=== PATIENT | male | born 1965 | race Caucasian/White ===

== ENCOUNTER 2017-12-27 09:48 | Inpatient (IN) | payer MEDICARE, MEDICAID ==
[2017-12-27 10:32] LABS: CHLORIDE,CL 105 mmol/L (98-107); SODIUM,NA 141 mmol/L (136-145)
[2017-12-27] MEDS: cefTRIAXone 1 GM in Sodium Chloride 0.9% 100 ML IV SCH (12:39)
[2017-12-27] MEDS ORDERED: Acetaminophen 325 MG Tab PO ONE (13:06)
--- NOTE | 2017-12-27 13:13 | EDM.PDOC ---
ED HPI GENERAL MEDICAL PROBLEM - General Chief Complaint: General Stated Complaint: post seizure activity Time Seen by Provider: 12/27/17 09:54 Source of Information: Reports: EMS, Other ([facility] ) History Limitations: Reports: Other (cognitive and communication deficits) - History of Present Illness INITIAL COMMENTS - FREE TEXT/NARRATIVE: Patient sent to us by [place] via EMS for possible brief seizure. They report "seconds" of shaking/seizure-like activity and then felt that the patient went unresponsive. EMS reports patient awake and per NH staff was at his usual baseline by the time they arrived. No history of seizures in past per retirement staff. NH did not note any other recent changes over the last few days. No fevers/ behavior change/URIs/cough/GI changes/falls. They did note that his O2 sats were in 80s this morning and BP fell from prevous level (see transfer sheets for notes) and started O2 via [facility]. No other history of new symptoms/changes was given to us. Patient has Down Syndrome. - Related Data Allergies Allergy/AdvReac Type Severity Reaction Status Date / Time No Known Allergies Allergy Verified 12/27/17 10:02 Home Meds: Home Meds Acetaminophen [Tylenol] 2 tab PO BID 12/27/17 [History] Acetaminophen [Tylenol] 2 tab PO Q4HR PRN 12/27/17 [History] Bisacodyl [Biscolax] 10 mg RC Q3D PRN 12/27/17 [History] Bisacodyl [Ducodyl] 5 mg PO DAILY PRN 12/27/17 [History] Doxycycline Hyclate 100 mg PO BID 12/27/17 [History] Levothyroxine Sodium [Synthroid] 100 mg PO ACBREAKFAST 12/27/17 [History] Multivits,Ca,Minerals/Iron/FA [Thera-M Cap[place]] 1 tab PO DAILY 12/27/17 [History] Tamsulosin HCl [Flomax] 1 cap PO DAILY 12/27/17 [History] Past Medical History HEENT History: Reports: Other (See Below) Other HEENT History: pt unable to answer questions d/t congitive deficit Neurological History: Reports: Other (See Below) Other Neuro History: down syndrome, unspecified dementia, spastic hemiplegia affecting left nondominate side Psychiatric History: Reports: Dementia, Other (See Below) Other Psychiatric History: down syndrome, unable to answer questions Endocrine/Metabolic History: Reports: Hypothyroidism Social & Family History - Tobacco Use Smoking Status *Q: Unknown Ever Smoked ED ROS GENERAL - Review of Systems Review Of Systems: Unable To Obtain ED EXAM, GENERAL - Physical Exam Exam: See Below Exam Limited By: Altered Mental Status General Appearance: No Apparent Distress, Obese, Other (awake) Eye Exam: Bilateral Eye: EOMI, PERRL Ears: Normal External Exam, Normal Canal Nose: No: Nasal Deformity, Nasal Swelling, Nasal Drainage Throat/Mouth: Normal Lips, Normal Voice, No Airway Compromise Head: Atraumatic, Normocephalic Neck: Normal Inspection, Supple, Non-Tender, Full Range of Motion Respiratory/Chest: No Accessory Muscle Use, Chest Non-Tender, Decreased Breath Sounds, Other (breathing effort appears slightly increased at times). No: Crackles, Rales, Rhonchi, Wheezing, Retractions Cardiovascular: Normal Peripheral Pulses, Regular Rate, Rhythm, No Edema, No Murmur Peripheral Pulses: 2+: Radial (L), Radial (R), Dorsalis Pedis (L), Dorsalis Pedis (R) GI/Abdominal: Normal Bowel Sounds, Soft, Non-Tender, No Distention (Male) Exam: Deferred Rectal (Males) Exam: Deferred Back Exam: No: Muscle Spasm, Paraspinal Tenderness, Vertebral Tenderness Extremities: Non-Tender, Normal Capillary Refill. No: Increased Warmth, Mottled , Pallor, Redness Neurological: Other (opens eyes intermittently, usually resting. Not attempting much in the way of moving around. Hx of spastic plegia affecting left side. Unable to perform strength tests as patient not able to follow directions. ) Skin Exam: Warm, Dry, Intact, Normal Color Course - Vital Signs Last Recorded V/S: Last Vital Signs Temp 36.5 C 12/27/17 09:50 Pulse 81 12/27/17 12:00 Resp 18 12/27/17 12:00 BP 103/81 12/27/17 12:00 Pulse Ox 96 12/27/17 12:00 - Orders/Labs/Meds Orders: Active Orders 24 hr Category Date Time Status Chest 1V Frontal [CR] Stat Exams 12/27/17 10:40 Taken CULTURE BLOOD [BC] Stat Lab 12/27/17 11:35 Received CULTURE BLOOD [BC] Stat Lab 12/27/17 12:30 Received UA W/MICROSCOPIC [URIN] Stat Lab 12/27/17 11:18 Ordered Azithromycin [Zithromax] 500 mg Med 12/27/17 11:45 Active Sodium Chloride 0.9% [Normal Saline] 250 ml IV Q24H LORazepam [Ativan] Med 12/27/17 13:05 Active 1 mg IVPUSH Q6H PRN cefTRIAXone [Rocephin] 1 gm Med 12/27/17 11:45 Active Sodium Chloride 0.9% [Normal Saline] 100 ml IV Q24H Blood Culture x2 Reflex Set [OM.PC] Stat Oth 12/27/17 11:18 Ordered Medication Orders Azithromycin 500 mg/ Sodium (Chloride) 250 mls @ 250 mls/hr IV Q24H GAVI Last Admin: 12/27/17 13:25 Dose: 250 mls/hr Ceftriaxone Sodium 1 gm/ (Sodium Chloride) 100 mls @ 200 mls/hr IV Q24H GAVI Last Admin: 12/27/17 12:39 Dose: 200 mls/hr Lorazepam (Ativan) 1 mg IVPUSH Q6H PRN PRN Reason: Agitation Last Admin: 12/27/17 13:16 Dose: 1 mg Labs: Laboratory Tests 12/27/17 12/27/17 12/27/17 Range/Units 10:05 10:05 10:45 WBC 30.5 H (4.0-10.2) K/uL RBC 5.73 H (4.33-5.41) M/uL Hgb 16.4 (13.1-16.8) g/dL Hct 47.2 (39.0-49.0) % MCV 82.4 L (84.0-98.0) fL MCH 28.6 (28.2-33.3) pg MCHC 34.7 (31.7-36.0) g/dL RDW 16.4 H (11.2-14.1) % Plt Count 273 (150-350) K/uL Add Manual Diff Yes Neutrophils % (Manual) 82 Band Neutrophils % 10 Lymphocytes % (Manual) 7 Monocytes % (Manual) 1 Absolute Neutrophils 28.0600 Lymphocytes # (Manual) 2.1350 Monocytes # (Manual) 0.3050 Sodium 141 (136-145) mmol/L Potassium 3.9 (3.5-5.1) mmol/L Chloride 105 (98-107) mmol/L Carbon Dioxide 24.1 (21.0-32.0) mmol/L BUN 17 (7-18) mg/dL Creatinine 0.94 (0.51-1.17) mg/dL Est Cr Clr Drug Dosing TNP Estimated GFR (MDRD) > 60 mL/min Glucose 139 H (74-106) mg/dL Lactic Acid 3.1 H (0.4-2.0) mmol/L Calcium 9.3 (8.5-10.1) mg/dL Total Bilirubin 0.3 (0.2-1.0) mg/dL AST 34 (15-37) U/L ALT 46 (12-78) U/L Alkaline Phosphatase 79 (46-116) IU/L NT-Pro-B Natriuret Pep (0-125) pg/mL Total Protein 6.8 (6.4-8.2) g/dL Albumin 3.1 L (3.4-5.0) g/dL Specimen Type Urine Color Urine Appearance Urine pH (5.0-9.0) Ur Specific [place] (1.005-1.030) Urine Protein (NEGATIVE) mg/dL Urine Glucose (UA) (NEGATIVE) mg/dL Urine Ketones (NEGATIVE) mg/dL Urine Occult Blood (NEGATIVE) Urine Nitrite (NEGATIVE) Urine Bilirubin (NEGATIVE) Urine Urobilinogen (0.2-1.0) E.U./dL Ur Leukocyte Esterase (NEGATIVE) Urine RBC /HPF Urine WBC /HPF Ur Epithelial Cells /LPF Urine Bacteria (NONE TO FEW) /HPF Urine Mucus (NEGATIVE) /LPF 12/27/17 12/27/17 Range/Units 10:45 11:18 WBC (4.0-10.2) K/uL RBC (4.33-5.41) M/uL Hgb (13.1-16.8) g/dL Hct (39.0-49.0) % MCV (84.0-98.0) fL MCH (28.2-33.3) pg MCHC (31.7-36.0) g/dL RDW (11.2-14.1) % Plt Count (150-350) K/uL Add Manual Diff Neutrophils % (Manual) Band Neutrophils % Lymphocytes % (Manual) Monocytes % (Manual) Absolute Neutrophils Lymphocytes # (Manual) Monocytes # (Manual) Sodium (136-145) mmol/L Potassium (3.5-5.1) mmol/L Chloride (98-107) mmol/L Carbon Dioxide (21.0-32.0) mmol/L BUN (7-18) mg/dL Creatinine (0.51-1.17) mg/dL Est Cr Clr Drug Dosing Estimated GFR (MDRD) mL/min Glucose (74-106) mg/dL Lactic Acid (0.4-2.0) mmol/L Calcium (8.5-10.1) mg/dL Total Bilirubin (0.2-1.0) mg/dL AST (15-37) U/L ALT (12-78) U/L Alkaline Phosphatase (46-116) IU/L NT-Pro-B Natriuret Pep 26 (0-125) pg/mL Total Protein (6.4-8.2) g/dL Albumin (3.4-5.0) g/dL Specimen Type Ur[place]ath Urine Color Yellow Urine Appearance Clear Urine pH 5.5 (5.0-9.0) Ur Specific [place] 1.020 (1.005-1.030) Urine Protein Negative (NEGATIVE) mg/dL Urine Glucose (UA) Negative (NEGATIVE) mg/dL Urine Ketones Negative (NEGATIVE) mg/dL Urine Occult Blood Negative (NEGATIVE) Urine Nitrite Negative (NEGATIVE) Urine Bilirubin Negative (NEGATIVE) Urine Urobilinogen 0.2 (0.2-1.0) E.U./dL Ur Leukocyte Esterase Negative (NEGATIVE) Urine RBC 0-5 /HPF Urine WBC 0-5 /HPF Ur Epithelial Cells Few /LPF Urine Bacteria Few (NONE TO FEW) /HPF Urine Mucus Few H (NEGATIVE) /LPF Meds: Medications Generic Name Dose Route Start Last Admin Trade Name Freq PRN Reason Stop Dose Admin Azithromycin 500 mg/ Sodium 250 mls @ 250 mls/hr 12/27/17 11:45 12/27/17 13: 25 Chloride IV 250 mls/hr Q24H GAVI Administration Ceftriaxone Sodium 1 gm/ 100 mls @ 200 mls/hr 12/27/17 11:45 12/27/17 12:39 Sodium Chloride IV 200 mls/hr Q24H GAVI Administration Lorazepam 1 mg 12/27/17 13:05 12/27/17 13:16 Ativan IVPUSH 1 mg Q6H PRN Administration Agitation Discontinued Medications Generic Name Dose Route Start Last Admin Trade Name Freq PRN Reason Stop Dose Admin Acetaminophen 650 mg 12/27/17 13:06 12/27/17 13:12 Tylenol PO 12/27/17 13:07 650 mg NOW ONE Administration - Radiology Interpretation Free Text/Narrative:: Chest xray somewhat poor due to patient unable to take deep breath/motion artifact present/positioning of patient. Does appear to have bilateral changes in lower lungs suggestive of infiltrate - Re-Assessments/Exams Free Text/Narrative Re-Assessment/Exam: 12/27/17 13:34 Initially CBC/chem performed. WBC elevated to 30,000 Patient afebrile. Lactic acid/BNP/Blood cultures added as was chest xray and UA. UA unremarkable. Lactic acid elevated. BNP normal. Given changes on chest xray, decreased room air sat history, elevated WBC/ Lactic acid, it was decided to treat for pneumonia. Call placed to patient's sister/guardian Billie Avalos. She was agreeable with Beau being admitted here and did say that the family chooses DNR/DNI Comfort Care for resuscitation status. Patient received first doses of antibiotics in the ER prior to admission to floor. Departure - Departure Time of Disposition: 13:41 Disposition: Admitted As Inpatient 66 Condition: Fair Clinical Impression: Pneumonia - Discharge Information *PRESCRIPTION DRUG MONITORING PROGRAM REVIEWED*: Not Applicable *COPY OF PRESCRIPTION DRUG MONITORING REPORT IN PATIENT GEOVANNA: Not Applicable - Problem List & Annotations (1) Pneumonia SNOMED Code(s): 961567873 Code(s): J18.9 - PNEUMONIA, UNSPECIFIED ORGANISM Status: Acute Priority: High Current Visit: Yes Onset Date: ~12/27/17 Annotation/Comment:: Suspected pneumonia. Will treat with Zithromax and Rocephin IV. Nebs. Supplemental O2 prn. (2) Down syndrome SNOMED Code(s): 56456455 Code(s): Q90.9 - DOWN SYNDROME, UNSPECIFIED Status: Chronic Priority: Low Current Visit: No Annotation/Comment:: Associated dementia/cognitive deficits (3) Spastic hemiplegia affecting left nondominant side SNOMED Code(s): 544707320039022 Code(s): G81.14 - SPASTIC HEMIPLEGIA AFFECTING LEFT NONDOMINANT SIDE Status : Chronic Priority: Low Current Visit: No (4) Hypothyroid SNOMED Code(s): 30737136 Code(s): E03.9 - HYPOTHYROIDISM, UNSPECIFIED Status: Chronic Priority: Low Current Visit: No Annotation/Comment:: Check TSH in morning. Qualifiers: Hypothyroidism type: unspecified Qualified Code(s): E03.9 - Hypothyroidism , unspecified - Problem List Review Problem List Initiated/Reviewed/Updated: Yes - My Orders Last 24 Hours: My Active Orders 12/27/17 10:40 Chest 1V Frontal [CR] Stat 12/27/17 11:18 UA W/MICROSCOPIC [URIN] Stat Blood Culture x2 Reflex Set [OM.PC] Stat 12/27/17 11:35 CULTURE BLOOD [BC] Stat 12/27/17 11:45 Azithromycin [Zithromax] 500 mg Sodium Chloride 0.9% [Normal Saline] 250 ml IV Q24H cefTRIAXone [Rocephin] 1 gm Sodium Chloride 0.9% [Normal Saline] 100 ml IV Q24H 12/27/17 12:30 CULTURE BLOOD [BC] Stat 12/27/17 13:05 LORazepam [Ativan] 1 mg IVPUSH Q6H PRN - Assessment/Plan Admission H&P: Please use this note as an admission H&P Last 24 Hours: My Active Orders 12/27/17 10:40 Chest 1V Frontal [CR] Stat 12/27/17 11:18 UA W/MICROSCOPIC [URIN] Stat Blood Culture x2 Reflex Set [OM.PC] Stat 12/27/17 11:35 CULTURE BLOOD [BC] Stat 12/27/17 11:45 Azithromycin [Zithromax] 500 mg Sodium Chloride 0.9% [Normal Saline] 250 ml IV Q24H cefTRIAXone [Rocephin] 1 gm Sodium Chloride 0.9% [Normal Saline] 100 ml IV Q24H 12/27/17 12:30 CULTURE BLOOD [BC] Stat 12/27/17 13:05 LORazepam [Ativan] 1 mg IVPUSH Q6H PRN Assessment:: as above Plan: as above. Anticipate 3-4 days inpatient stay depending on clinic course.
[2017-12-27] MEDS: LORazepam 2 MG/ML SDV IVPUSH PRN ×2 (13:16→20:17)
[2017-12-27] MEDS: Azithromycin 500 MG in Sodium Chloride 0.9% 250 ML IV SCH (13:25)
[2017-12-27] MEDS ORDERED: Sennosides 8.6 MG Tab PO PRN (14:22)
[2017-12-27] MEDS ORDERED: Bisacodyl 5 MG Tab PO PRN (14:22)
[2017-12-27] MEDS ORDERED: Bisacodyl 10 MG Supp RECTAL PRN (14:26)
[2017-12-27] MEDS ORDERED: Ondansetron 4 MG/2 ML SDV IVPUSH PRN (15:00)
[2017-12-27] MEDS: Tamsulosin 0.4 MG Cap.ER PO SCH (18:48)
[2017-12-27] MEDS: Acetaminophen 325 MG Tab PO PRN (20:29)
[2017-12-27] MEDS: Albuterol/Ipratropium 3.0-0.5 MG/3 ML Neb Soln NEB SCH (20:30)
[2017-12-28] MEDS: Albuterol/Ipratropium 3.0-0.5 MG/3 ML Neb Soln NEB SCH ×4 (01:59→19:48)
[2017-12-28 07:29] LABS: CHLORIDE,CL 107 mmol/L (98-107); SODIUM,NA 142 mmol/L (136-145)
[2017-12-28] MEDS ORDERED: Levothyroxine 100 MCG Tab PO SCH (07:30)
[2017-12-28] MEDS: Enoxaparin 40 MG/0.4 ML Syringe SUBCUT SCH (08:47)
[2017-12-28] MEDS: cefTRIAXone 1 GM in Sodium Chloride 0.9% 100 ML IV SCH (11:43)
[2017-12-28] MEDS: Azithromycin 500 MG in Sodium Chloride 0.9% 250 ML IV SCH (12:16)
[2017-12-28] MEDS: Acetaminophen 325 MG Tab PO PRN (15:42)
[2017-12-28] MEDS: Tamsulosin 0.4 MG Cap.ER PO SCH (18:05)
--- NOTE | 2017-12-28 19:47 | PCM.PN ---
- General Info Date of Service: 12/28/17 Admission Dx/Problem (Free Text): Patient admitted for treatment of pneumonia/fever. Questionable brief seconds of [facility]. No seizure- like activity observed by EMS or staff since coming to hospital. Subjective Update: Patient appears to be usual self per his sister. Patient is not very communicative and has had cognitive as well as physical decline over recent years. Down Syndrome. She does say that Beau requires belt transfer and does not walk well even with assist. He spends most of his days in a lift chair/ recliner in his room at the prison. Will go by wheelchair to meals and PT. - Review of Systems General: Reports: Fever, Other (Cannot perform ROS with patient. ). Denies: Malaise, Chills, Night Sweats HEENT: Denies: Rhinitis Pulmonary: Denies: Cough, Sputum, Wheezing Gastrointestinal: Denies: Decreased Appetite, Diarrhea, Difficulty Swallowing, Nausea, Vomiting Genitourinary: Denies: Hematuria Skin: Denies: Rash Neurological: Reports: Pre-Existing Deficit - Patient Data Vitals - Most Recent: Last Vital Signs Temp 38.6 C H 12/28/17 16:00 Pulse 91 12/28/17 16:00 Resp 16 12/28/17 16:00 BP 110/59 L 12/28/17 16:00 Pulse Ox 93 L 12/28/17 16:00 Weight - Most Recent: 70.76 kg I&O - Last 24 Hours: Intake & Output 12/28/17 12/28/17 12/28/17 06:59 14:59 22:59 Intake Total 120 Balance 120 Lab Results Last 24 Hours: Laboratory Results - last 24 hr 12/28/17 12/28/17 12/28/17 Range/Units 06:55 06:55 06:55 WBC 10.9 H (4.0-10.2) K/uL RBC 5.04 (4.33-5.41) M/uL Hgb 14.6 D (13.1-16.8) g/dL Hct 42.0 (39.0-49.0) % MCV 83.3 L (84.0-98.0) fL MCH 29.0 (28.2-33.3) pg MCHC 34.8 (31.7-36.0) g/dL RDW 15.8 H (11.2-14.1) % Plt Count 225 (150-350) K/uL Neut % (Auto) 79.6 (45.0-80.0) % Lymph % (Auto) 12.9 (10.0-50.0) % [place] % (Auto) 6.2 (2.0-14.0) % Eos % (Auto) 0.8 (0.0-5.0) % Baso % (Auto) 0.5 (0.0-2.0) % Neut # (Auto) 8.70 H (1.40-7.00) K/uL Lymph # (Auto) 1.41 (0.50-3.50) K/uL [place] # (Auto) 0.68 (0.00-1.00) K/uL Eos # (Auto) 0.09 (0.00-0.50) K/uL Baso # (Auto) 0.05 (0.00-0.20) K/uL Sodium 142 (136-145) mmol/L Potassium 4.0 (3.5-5.1) mmol/L Chloride 107 (98-107) mmol/L Carbon Dioxide 28.4 (21.0-32.0) mmol/L BUN 14 (7-18) mg/dL Creatinine 0.96 (0.51-1.17) mg/dL Est Cr Clr Drug Dosing 75.37 mL/min Estimated GFR (MDRD) > 60 mL/min Glucose 108 H (74-106) mg/dL Lactic Acid 0.8 (0.4-2.0) mmol/L Calcium 8.4 L (8.5-10.1) mg/dL Total Bilirubin 0.4 (0.2-1.0) mg/dL AST 29 (15-37) U/L ALT 46 (12-78) U/L Alkaline Phosphatase 68 (46-116) IU/L Total Protein 6.0 L (6.4-8.2) g/dL Albumin 2.6 L (3.4-5.0) g/dL TSH, Ultra Sensitive 7.189 H (0.358-3.740) mIU/mL [place] Results Last 24 Hours: Microbiology 12/27/17 12:30 Aerobic Blood Culture - Preliminary Blood - Venous - Lab Draw NO GROWTH AFTER 1 DAY Anaerobic Blood Culture - Preliminary NO GROWTH AFTER 1 DAY 12/27/17 11:35 Aerobic Blood Culture - Preliminary Blood - Venous NO GROWTH AFTER 1 DAY Anaerobic Blood Culture - Preliminary NO GROWTH AFTER 1 DAY Med Orders - Current: Current Medications Acetaminophen (Tylenol) 650 mg PO Q6H PRN PRN Reason: Pain (Mild 1-3)/fever Last Admin: 12/28/17 15:42 Dose: 650 mg Albuterol/Ipratropium (Duoneb 3.0-0.5 Mg/3 Ml) 3 ml NEB Q6HRRT [facility] Last Admin: 12/28/17 15:20 Dose: 3 ml Bisacodyl (Dulcolax) 5 mg PO DAILY PRN PRN Reason: Constipation Bisacodyl (Dulcolax) 10 mg RECTAL Q3D PRN PRN Reason: Constipation Enoxaparin Sodium (Lovenox) 40 mg SUBCUT DAILY [facility] Last Admin: 12/28/17 08:47 Dose: 40 mg Azithromycin 500 mg/ Sodium (Chloride) 250 mls @ 250 mls/hr IV Q24H [facility] Last Admin: 12/28/17 12:16 Dose: 250 mls/hr Ceftriaxone Sodium 1 gm/ (Sodium Chloride) 100 mls @ 200 mls/hr IV Q24H [facility] Last Admin: 12/28/17 11:43 Dose: 200 mls/hr Sodium Chloride (Normal Saline) 1,000 mls @ 75 mls/hr IV ASDIRECTED [facility] Levothyroxine Sodium (Levothyroxine) 112 mcg PO ACBREAKFAST [facility] Lorazepam (Ativan) 1 mg IVPUSH Q6H PRN PRN Reason: Agitation Last Admin: 12/27/17 20:17 Dose: 1 mg Ondansetron HCl (Zofran) 4 mg IVPUSH Q6H PRN PRN Reason: Nausea/Vomiting Last Admin: 12/27/17 20:16 Dose: 4 mg Senna (Senna) 8.6 mg PO BID PRN PRN Reason: Constipation Tamsulosin HCl (Flomax) 0.4 mg PO DAILY@1830 [facility] Last Admin: 12/28/17 18:05 Dose: 0.4 mg Discontinued Medications Acetaminophen (Tylenol) 650 mg PO NOW ONE Stop: 12/27/17 13:07 Last Admin: 12/27/17 13:12 Dose: 650 mg Levothyroxine Sodium (Synthroid) 100 mcg PO ACBREAKFAST [facility]AVI Last Admin: 12/28/17 11:29 Dose: Not Given Levothyroxine Sodium (Levothyroxine) 112 mcg PO ACBREAKFAST [facility]I - Exam Quality Assessment: Supplemental Oxygen General: Alert HEENT: Pupils Equal, Pupils Reactive, EOMI, Mucous Membr. Moist/[place] Neck: Supple Lungs: Clear to Auscultation, Normal Respiratory Effort, Decreased Breath Sounds (throughout), Other (brief mildly congested cough noted). No: Crackles, Rales, Rhonchi, Stridor, Wheezing Cardiovascular: Regular Rate, Regular Rhythm GI/Abdominal Exam: Normal Bowel Sounds, Soft, Non-Tender, No Distention (Male) Exam: Deferred Back Exam: No: Muscle Spasm Extremities: Non-Tender, Normal Capillary Refill Peripheral Pulses: 2+: Radial (L), Radial (R) Skin: Warm, Dry, Intact, Other (No bedsores/open areas noted ) Neurological: No New Focal Deficit Psy/Mental Status: Alert, Other (normal interaction level per family members. ) - Problem List & Annotations (1) Pneumonia SNOMED Code(s): 580969903 Code(s): J18.9 - PNEUMONIA, UNSPECIFIED ORGANISM Status: Acute Priority: High Current Visit: Yes Onset Date: ~12/27/17 Annotation/Comment:: Suspected pneumonia. Will treat with Zithromax and Rocephin IV. Nebs. Supplemental O2 prn. Radiology noted probable left lower lobe infiltrate. Continues to receive supplemental O2 via [place]. Flow reduced to 3L today with O2 saturations around 94-95%. (2) Down syndrome SNOMED Code(s): 44400410 Code(s): Q90.9 - DOWN SYNDROME, UNSPECIFIED Status: Chronic Priority: Low Current Visit: No Annotation/Comment:: Associated dementia/cognitive deficits. Dementia and general weakness/less activity has been progressive over recent years per family. (3) Spastic hemiplegia affecting left nondominant side SNOMED Code(s): 476551540605609 Code(s): G81.14 - SPASTIC HEMIPLEGIA AFFECTING LEFT NONDOMINANT SIDE Status : Chronic Priority: Low Current Visit: No (4) Hypothyroid SNOMED Code(s): 19810045 Code(s): E03.9 - HYPOTHYROIDISM, UNSPECIFIED Status: Chronic Priority: Low Current Visit: No Qualifiers: Hypothyroidism type: unspecified Qualified Code(s): E03.9 - Hypothyroidism , unspecified Annotation/Comment:: Check TSH in morning. - Problem List Review Problem List Initiated/Reviewed/Updated: Yes - My Orders Last 24 Hours: My Active Orders 12/27/17 20:00 Albuterol/Ipratropium [DuoNeb 3.0-0.5 MG/3 ML] 3 ml NEB Q6HRRT 12/28/17 08:00 Enoxaparin [Lovenox] 40 mg SUBCUT DAILY 12/28/17 09:04 OCCULT BLOOD DIAGNOSTIC [OP] Routine 12/28/17 09:15 Sodium Chloride 0.9% [Normal Saline] 1,000 ml IV ASDIRECTED 12/29/17 05:11 COMPREHENSIVE METABOLIC PN,CMP [CHEM] AM 12/29/17 05:15 CBC WITH AUTO DIFF [HEME] AM 12/29/17 07:30 Levothyroxine 112 mcg PO ACBREAKFAST - Assessment Assessment:: as above - Plan Plan:: Continue IV antibiotics and supplemental O2. Will have PT/OT assess patient tomorrow. Anticipate 2-3 additional days stay prior to switching to PO antibiotics and transfer back to prison. May need to consider PRN O2 order at time of transfer if patient is still hypoxic on room air.
[2017-12-28] MEDS: Sodium Chloride 0.9% 1,000 ML IV SCH (19:48)
[2017-12-29] MEDS: Acetaminophen 325 MG Tab PO PRN ×2 (01:58→19:20)
[2017-12-29] MEDS: Albuterol/Ipratropium 3.0-0.5 MG/3 ML Neb Soln NEB SCH ×4 (01:59→19:18)
[2017-12-29 07:29] LABS: CHLORIDE,CL 108 mmol/L (98-107); SODIUM,NA 142 mmol/L (136-145)
[2017-12-29] MEDS ORDERED: Levothyroxine 112 MCG Tab PO SCH (07:30)
[2017-12-29] MEDS: Enoxaparin 40 MG/0.4 ML Syringe SUBCUT SCH (07:57)
[2017-12-29] MEDS: Levothyroxine 112 MCG Tab PO SCH (07:57)
[2017-12-29] MEDS: Aspirin 325 MG Tab.EC PO SCH (07:58)
[2017-12-29] MEDS: Sodium Chloride 0.9% 1,000 ML IV SCH (10:43)
[2017-12-29] MEDS: cefTRIAXone 1 GM in Sodium Chloride 0.9% 100 ML IV SCH (11:26)
[2017-12-29] MEDS: Azithromycin 500 MG in Sodium Chloride 0.9% 250 ML IV SCH (12:13)
--- NOTE | 2017-12-29 13:20 | PCM.PN ---
- General Info Date of Service: 12/29/17 Admission Dx/Problem (Free Text): Patient admitted for treatment of pneumonia/fever. Questionable brief seconds of seizure-like activity observed at senior living prior to transfer. No seizure- like activity observed by EMS or staff since coming to hospital. Subjective Update: Patient is more communicative today. Eating. Appears comfortable. Patient appears to be usual self per his sister when she visited yesterday. Patient is not very communicative and has had cognitive as well as physical decline over recent years. Down Syndrome. She does say that Beau requires belt transfer and does not walk well even with assist. He spends most of his days in a lift chair/recliner in his room at the senior living. Will go by wheelchair to meals and PT. Functional Status: Reports: Pain Controlled, Tolerating Diet, Urinating. Denies : New Symptoms - Review of Systems General: Reports: Other (Patient says he feels "good" when asked how he is doing. No complaints. Limited acuracy ROS due to cognitive and communication deficits. ). Denies: Fever HEENT: Reports: Glasses. Denies: Sinus Congestion, Rhinitis Pulmonary: Denies: Cough, Sputum, Hemoptysis, Wheezing Gastrointestinal: Denies: Diarrhea, Nausea, Vomiting Genitourinary: Denies: Hematuria Skin: Reports: Other (small area of erythema noted around old IV site). Denies : Bruising Neurological: Reports: Pre-Existing Deficit Psychiatric: Denies: Agitation - Patient Data Vitals - Most Recent: Last Vital Signs Temp 36.8 C 12/29/17 12:00 Pulse 100 12/29/17 12:00 Resp 16 12/29/17 12:00 BP 124/68 12/29/17 12:00 Pulse Ox 92 L 12/29/17 12:00 Weight - Most Recent: 70.76 kg I&O - Last 24 Hours: Intake & Output 12/28/17 12/29/17 12/29/17 22:59 06:59 14:59 Intake Total 120 916 840 Balance 120 916 840 Lab Results Last 24 Hours: Laboratory Results - last 24 hr 12/29/17 12/29/17 Range/Units 07:00 07:00 WBC 9.2 (4.0-10.2) K/uL RBC 4.68 (4.33-5.41) M/uL Hgb 13.6 (13.1-16.8) g/dL Hct 39.4 (39.0-49.0) % MCV 84.2 (84.0-98.0) fL MCH 29.1 (28.2-33.3) pg MCHC 34.5 (31.7-36.0) g/dL RDW 15.7 H (11.2-14.1) % Plt Count 200 (150-350) K/uL Neut % (Auto) 71.5 (45.0-80.0) % Lymph % (Auto) 18.8 (10.0-50.0) % [place] % (Auto) 6.7 (2.0-14.0) % Eos % (Auto) 2.2 (0.0-5.0) % Baso % (Auto) 0.8 (0.0-2.0) % Neut # (Auto) 6.57 (1.40-7.00) K/uL Lymph # (Auto) 1.73 (0.50-3.50) K/uL [place] # (Auto) 0.62 (0.00-1.00) K/uL Eos # (Auto) 0.20 (0.00-0.50) K/uL Baso # (Auto) 0.07 (0.00-0.20) K/uL Sodium 142 (136-145) mmol/L Potassium 3.8 (3.5-5.1) mmol/L Chloride 108 H (98-107) mmol/L Carbon Dioxide 28.6 (21.0-32.0) mmol/L BUN 9 (7-18) mg/dL Creatinine 0.82 (0.51-1.17) mg/dL Est Cr Clr Drug Dosing 88.24 mL/min Estimated GFR (MDRD) > 60 mL/min Glucose 99 (74-106) mg/dL Calcium 7.9 L (8.5-10.1) mg/dL Total Bilirubin 0.4 (0.2-1.0) mg/dL AST 28 (15-37) U/L ALT 43 (12-78) U/L Alkaline Phosphatase 67 (46-116) IU/L Total Protein 5.6 L (6.4-8.2) g/dL Albumin 2.3 L (3.4-5.0) g/dL [place] Results Last 24 Hours: Microbiology 12/27/17 12:30 Aerobic Blood Culture - Preliminary Blood - Venous - Lab Draw NO GROWTH AFTER 2 DAYS Anaerobic Blood Culture - Preliminary NO GROWTH AFTER 2 DAYS 12/27/17 11:35 Aerobic Blood Culture - Preliminary Blood - Venous NO GROWTH AFTER 2 DAYS Anaerobic Blood Culture - Preliminary NO GROWTH AFTER 2 DAYS Med Orders - Current: Current Medications Acetaminophen (Tylenol) 650 mg PO Q6H PRN PRN Reason: Pain (Mild 1-3)/fever Last Admin: 12/29/17 01:58 Dose: 650 mg Albuterol/Ipratropium (Duoneb 3.0-0.5 Mg/3 Ml) 3 ml NEB Q6HRRT [facility] Last Admin: 12/29/17 07:57 Dose: 3 ml Aspirin (Ecotrin) 325 mg PO DAILY [facility] Last Admin: 12/29/17 07:58 Dose: 325 mg Bisacodyl (Dulcolax) 5 mg PO DAILY PRN PRN Reason: Constipation Bisacodyl (Dulcolax) 10 mg RECTAL Q3D PRN PRN Reason: Constipation Enoxaparin Sodium (Lovenox) 40 mg SUBCUT DAILY [facility] Last Admin: 12/29/17 07:57 Dose: 40 mg Azithromycin 500 mg/ Sodium (Chloride) 250 mls @ 250 mls/hr IV Q24H [facility] Last Admin: 12/29/17 12:13 Dose: 250 mls/hr Ceftriaxone Sodium 1 gm/ (Sodium Chloride) 100 mls @ 200 mls/hr IV Q24H [facility] Last Admin: 12/29/17 11:26 Dose: 200 mls/hr Levothyroxine Sodium (Levothyroxine) 112 mcg PO ACBREAKFAST [facility] Last Admin: 12/29/17 07:57 Dose: 112 mcg Lorazepam (Ativan) 1 mg IVPUSH Q6H PRN PRN Reason: Agitation Last Admin: 12/27/17 20:17 Dose: 1 mg Ondansetron HCl (Zofran) 4 mg IVPUSH Q6H PRN PRN Reason: Nausea/Vomiting Last Admin: 12/27/17 20:16 Dose: 4 mg Senna (Senna) 8.6 mg PO BID PRN PRN Reason: Constipation Tamsulosin HCl (Flomax) 0.4 mg PO DAILY@1830 [facility] Last Admin: 12/28/17 18:05 Dose: 0.4 mg Discontinued Medications Acetaminophen (Tylenol) 650 mg PO NOW ONE Stop: 12/27/17 13:07 Last Admin: 12/27/17 13:12 Dose: 650 mg Sodium Chloride (Normal Saline) 1,000 mls @ 75 mls/hr IV ASDIRECTED [facility] Last Admin: 12/29/17 10:43 Dose: 75 mls/hr Levothyroxine Sodium (Synthroid) 100 mcg PO ACBREAKFAST [facility] Last Admin: 12/28/17 11:29 Dose: Not Given Levothyroxine Sodium (Levothyroxine) 112 mcg PO ACBREAKFAST [facility] - Exam Quality Assessment: Supplemental Oxygen, DVT Prophylaxis General: Alert, No Acute Distress HEENT: Pupils Equal, Pupils Reactive, EOMI, Mucous Membr. Moist/[place] Neck: Supple Lungs: Normal Respiratory Effort, Decreased Breath Sounds, Rhonchi (mild, bilateral) Cardiovascular: Regular Rate, Regular Rhythm GI/Abdominal Exam: Normal Bowel Sounds, Soft, Non-Tender, No Distention (Male) Exam: Deferred Back Exam: Normal Inspection Extremities: No Pedal Edema, Normal Capillary Refill Peripheral Pulses: 2+: Radial (L), Radial (R) Skin: Warm, Dry, Other (Some darkening/discoloration of lower extremities) Neurological: No New Focal Deficit Psy/Mental Status: Alert, Normal Affect, Normal Mood - Problem List & Annotations (1) Pneumonia SNOMED Code(s): 448518427 Code(s): J18.9 - PNEUMONIA, UNSPECIFIED ORGANISM Status: Acute Priority: High Current Visit: Yes Onset Date: ~12/27/17 Annotation/Comment:: Suspected pneumonia. Receiving Zithromax and Rocephin IV. Nebs. Supplemental O2 prn. Radiology noted probable left lower lobe infiltrate. Continues to receive supplemental O2 via NC. Continues to require 3-4L of O2 in order to keep sats around 95%. Normal WBC today. Lactic acid normalized. (2) Down syndrome SNOMED Code(s): 64990841 Code(s): Q90.9 - DOWN SYNDROME, UNSPECIFIED Status: Chronic Priority: Low Current Visit: No Annotation/Comment:: Associated dementia/cognitive deficits. Dementia and general weakness/less activity has been progressive over recent years per family. (3) Spastic hemiplegia affecting left nondominant side SNOMED Code(s): 746719164640073 Code(s): G81.14 - SPASTIC HEMIPLEGIA AFFECTING LEFT NONDOMINANT SIDE Status : Chronic Priority: Low Current Visit: No (4) Hypothyroid SNOMED Code(s): 44263926 Code(s): E03.9 - HYPOTHYROIDISM, UNSPECIFIED Status: Chronic Priority: Low Current Visit: No Qualifiers: Hypothyroidism type: unspecified Qualified Code(s): E03.9 - Hypothyroidism , unspecified Annotation/Comment:: Elevted TSH. Synthroid dose increased. Will need follow up by primary provider for recheck of levels. (5) Hypoalbuminemia SNOMED Code(s): 672553283 Code(s): E88.09 - OTH DISORDERS OF PLASMA-PROTEIN METABOLISM, NEC Status: Chronic Priority: Low Current Visit: Yes Annotation/Comment:: Suspect in part dilutional given IV fluids he has been receiving while inpatient. Also suspect in part nutritional/dietary. To follow up with primary provider after discharge. (6) Peripheral vascular disease SNOMED Code(s): 270166190 Code(s): I73.9 - PERIPHERAL VASCULAR DISEASE, UNSPECIFIED Status: Chronic Priority: Low Current Visit: No Annotation/Comment:: Suspect given dermal changes observed in both lower extremities. Has no formal diagnosis listed. Given patient's comfort care status no further evaluation will be performed at this time. (7) Hypocalcemia SNOMED Code(s): 7013099 Code(s): E83.51 - HYPOCALCEMIA Status: Acute Priority: Low Current Visit: Yes Annotation/Comment:: Suspect dilutional given IV fluids. Was normal at time of admission. Will initiate calcium and vitamin D supplementation today and recheck levels tomorrow. (8) Aspiration of food SNOMED Code(s): 18642898 Code(s): T17.890A - OTH FOREIGN OBJECT IN OTH PRT RESP TRACT CAUSE ASPHYX, INIT Status: Chronic Priority: Medium Current Visit: Yes Qualifiers: Encounter type: initial encounter Qualified Code(s): T17.890A - Other foreign object in other parts of respiratory tract causing asphyxiation, initial encounter Annotation/Comment:: Suspect increased risk of aspiration of food/drink based on nursing observations while feeding patient. Soft diet ordered. Patient's sister was made aware of this. It was felt that patient would do poorly in a swallow evaluation given that he cannot follow directions easily. She is not interested in any additional workup for this issue and wants to continue comfort care goals. - Problem List Review Problem List Initiated/Reviewed/Updated: Yes - My Orders Last 24 Hours: My Active Orders 12/29/17 05:11 Chest 1V Frontal [CR] AM 12/29/17 07:30 Levothyroxine 112 mcg PO ACBREAKFAST 12/29/17 08:00 Aspirin [Ecotrin] 325 mg PO DAILY - Assessment Assessment:: as above - Plan Plan:: Continue IV antibiotics and supplemental O2. Will have PT/OT assess patient. Anticipate discharge tomorrow, switching to PO antibiotics and transfer back to senior living. Follow up by primary provider. Plan PRN O2 order at time of transfer as patient is still hypoxic on room air. to take over patient's care tomorrow.
[2017-12-29] MEDS ORDERED: Calcium Carbonate 500 MG Tab.Chew PO ONE (13:42)
[2017-12-29] MEDS ORDERED: Ergocalciferol (Vitamin D2) 50,000 Unit Cap PO ONE (13:42)
[2017-12-29] MEDS: Magnesium Oxide 400 MG Tab PO SCH (15:10)
[2017-12-29] MEDS: Tamsulosin 0.4 MG Cap.ER PO SCH (19:18)
[2017-12-30] MEDS: Albuterol/Ipratropium 3.0-0.5 MG/3 ML Neb Soln NEB SCH ×2 (01:58→08:26)
[2017-12-30] MEDS: LORazepam 2 MG/ML SDV IVPUSH PRN (01:58)
[2017-12-30] MEDS ORDERED: Cholecalciferol (Vitamin D3) 1,000 Unit Tab PO SCH (08:00)
[2017-12-30 08:03] LABS: CHLORIDE,CL 106 mmol/L (98-107); SODIUM,NA 141 mmol/L (136-145)
[2017-12-30] MEDS: Aspirin 325 MG Tab.EC PO SCH (08:26)
[2017-12-30] MEDS: Magnesium Oxide 400 MG Tab PO SCH (08:26)
[2017-12-30] MEDS: Enoxaparin 40 MG/0.4 ML Syringe SUBCUT SCH (08:26)
[2017-12-30] MEDS: Levothyroxine 112 MCG Tab PO SCH (08:26)
--- NOTE | 2017-12-30 10:11 | PCM.DCSUM1 ---
Discharge Summary - Hospital Course HPI Initial Comments: See emergency room note/admission H&P Brief History: See emergency room note/admission H&P Diagnosis: Stroke: No Modified [place] Scale: Mod.Sev.Disability ;Unable to Walk/Attend Bodily Needs W/ O Assistance (Chronic state) Modified Leonor Scale Score: 4 - Discharge Data Discharge Date: 12/30/17 Discharge Disposition: DC/Tfer to SNF 03 Condition: Fair - Discharge Diagnosis/Problem(s) (1) Pneumonia SNOMED Code(s): 270482577 ICD Code: J18.9 - PNEUMONIA, UNSPECIFIED ORGANISM Status: Acute Priority : High Current Visit: Yes Onset Date: ~12/27/17 Problem Details: Aggressive DuoNeb treatments with additional IV Rocephin and Zithromax during this hospitalization. Subcutaneous Lovenox was used as DVT prophylaxis. Patient did require supplemental oxygen therapy throughout this hospitalization with this to be continued at discharge. Close follow-up by regular provider as per discharge instructions. Patient will be discharged on oral Zithromax and Augmentin as per discharge instructions. Suspect aspiration pneumonia with aspiration precautions to be initiated. Note that patient's family does not wish to have any further aggressive workup, speech therapy consultation, etc.. Despite evidence of possible aspiration patient did respond well to IV Zithromax and IV Rocephin with no additional oral Flagyl therapy to the prescribed at discharge. (2) Seizure SNOMED Code(s): 42851385 ICD Code: R56.9 - UNSPECIFIED CONVULSIONS Status: Acute Current Visit: Yes Onset Date: 12/27/17 Problem Details: Possible seizure based on transfer records from shelter. No further seizure activity during this hospitalization. Note comfort care. No further workup. Continue to observe closely by shelter staff and his regular provider with further medical therapy depending on his clinical course (3) Lactic acid blood increased SNOMED Code(s): 4877698 ICD Code: R79.89 - OTHER SPECIFIED ABNORMAL FINDINGS OF BLOOD CHEMISTRY Status: Acute Priority: High Current Visit: Yes Onset Date: 12/27/17 Problem Details: Significant leukocytosis on admission with additional elevated lactic acid level. WBCs continued to improve during this hospitalization with negative subsequent follow-up lactic acid level. No leukocytosis at discharge. Blood Cultures to this point are negative. UA was negative for infection. Continue comfort care. (4) Comfort measures only status SNOMED Code(s): 95267832443676 ICD Code: Z51.5 - ENCOUNTER FOR PALLIATIVE CARE Status: Chronic Priority : Medium Current Visit: Yes Problem Details: Confirmed by patient's sister during this hospitalization by [facility] physician (5) COPD (chronic obstructive pulmonary disease) SNOMED Code(s): 17725983 ICD Code: J44.9 - CHRONIC OBSTRUCTIVE PULMONARY DISEASE, UNSPECIFIED Status : Chronic Priority: Medium Current Visit: Yes Problem Details: Aggressive nebulizer and antibiotic therapy as above. Continue nebulizer therapy after discharge on a long-term basis. Qualifiers: COPD type: COPD with acute lower respiratory infection Qualified Code(s): J44.0 - Chronic obstructive pulmonary disease with acute lower respiratory infection (6) Mixed anxiety depressive disorder SNOMED Code(s): 509247954 ICD Code: F41.8 - OTHER SPECIFIED ANXIETY DISORDERS Status: Chronic Priority: Medium Current Visit: Yes Problem Details: Stable during this hospitalization (7) Osteoarthritis SNOMED Code(s): 633532472 ICD Code: M19.90 - UNSPECIFIED OSTEOARTHRITIS, UNSPECIFIED SITE Status: Chronic Priority: Medium Current Visit: Yes Problem Details: Stable during this hospitalization. Qualifiers: Osteoarthritis location: multiple joints Osteoarthritis type: primary Qualified Code(s): M15.0 - Primary generalized (osteo)arthritis (8) Aspiration of food SNOMED Code(s): 35424829 ICD Code: T17.890A - OTH FOREIGN OBJECT IN OTH PRT RESP TRACT CAUSE ASPHYX, INIT Status: Chronic Priority: Medium Current Visit: Yes Problem Details : As above Qualifiers: Encounter type: initial encounter Qualified Code(s): T17.890A - Other foreign object in other parts of respiratory tract causing asphyxiation, initial encounter (9) Hypoalbuminemia SNOMED Code(s): 224742391 ICD Code: E88.09 - OTH DISORDERS OF PLASMA-PROTEIN METABOLISM, NEC Status: Chronic Priority: Medium Current Visit: Yes Problem Details: Initiate high -protein Glucerna supplements twice a day as snacks. (10) Down syndrome SNOMED Code(s): 66675961 ICD Code: Q90.9 - DOWN SYNDROME, UNSPECIFIED Status: Chronic Priority: Low Current Visit: No Problem Details: Associated dementia/cognitive deficits. Dementia and general weakness/less activity has been progressive over recent years per family. Symptoms stable during this hospitalization. (11) Hypothyroid SNOMED Code(s): 63750850 ICD Code: E03.9 - HYPOTHYROIDISM, UNSPECIFIED Status: Chronic Priority: High Current Visit: Yes Problem Details: Elevated TSH. Synthroid dose increased on admission. Follow-up TSH will be needed in 4 weeks. Qualifiers: Hypothyroidism type: acquired Qualified Code(s): E03.9 - Hypothyroidism, unspecified (12) Spastic hemiplegia affecting left nondominant side SNOMED Code(s): 737527879170553 ICD Code: G81.14 - SPASTIC HEMIPLEGIA AFFECTING LEFT NONDOMINANT SIDE Status: Chronic Priority: Medium Current Visit: Yes Problem Details: Stable during this hospitalization. Qualifiers: Hemiplegia etiology: unspecified etiology Qualified Code(s): G81.14 - Spastic hemiplegia affecting left nondominant side - Patient Summary/Data Operative Procedure(s) Performed: None Complications: None Labs Pending at D/C: 1. Final blood culture results 2. Final radiological report for chest x-ray on 12/30/17 Recommended Follow-up Testing/Procedures: As per discharge instructions. Planned Operative Procedure(s) after DC: None Hospital Course: The patient was admitted to inpatient/acute care for initial evaluation of possible suspected seizure with no recurrence during this hospital physician as above. Probable left lower lobe aspiration pneumonia was diagnosed with significant leukocytosis and elevated lactic acid level as above. The patient does remain mildly hypotensive at time of discharge with no true evidence of sepsis as above. Aggressive treatment of his pneumonia and COPD as above. No complications during this hospitalization. - Patient Instructions Diet: Mechanical Soft (With aspiration precautions and thickened nectar consistency liquids with evidence of aspiration recurs) Activity: As Tolerated (Strict fall and injury precautions) Driving: Do Not Drive Showering/Bathing: May Shower Notify Provider of: Fever, Nausea and/or Vomiting Other/Special Instructions: 1. Followup with your regular provider in 7 days as directed for reevaluation including recommended repeat chest x-ray, CBC, and comprehensive metabolic panel. Bring these discharge instructions with you to that visit. 2. Strict aspiration precautions with change diet as above as needed. 3. O2 at 24 L/m by nasal cannula as needed for O2 sat less than 92% with regular provider to be notified at follow-up if hypoxia persists. 4. TSH to be repeated in 4 weeks secondary to increased L thyroxine therapy. 5. Glucerna high-protein supplements twice a day as snacks with aspiration precautions as above - Discharge Plan *PRESCRIPTION DRUG MONITORING PROGRAM REVIEWED*: Not Applicable *COPY OF PRESCRIPTION DRUG MONITORING REPORT IN PATIENT GEOVANNA: Not Applicable Prescriptions/Med Rec: Amoxicillin/Potassium Clav [Augmentin 875-125 Tablet] 1 each PO BIDMEALS #14 tablet Azithromycin [Zithromax] 500 mg PO DAILY #7 tab guaiFENesin [Mucinex] 600 mg PO BID #14 tab.er.12h Levothyroxine 112 mcg PO ACBREAKFAST #60 tablet Home Medications: Home Meds Acetaminophen [Tylenol] 2 tab PO BID 12/27/17 [History] Acetaminophen [Tylenol] 2 tab PO Q4HR PRN 12/27/17 [History] Bisacodyl [Biscolax] 10 mg RC Q3D PRN 12/27/17 [History] Bisacodyl [Ducodyl] 10 mg PO DAILY PRN 12/27/17 [History] Multivits,Ca,Minerals/Iron/FA [Thera-M [place]] 1 tab PO DAILY 12/27/17 [History] Tamsulosin HCl [Flomax] 1 cap PO DAILY@1830 12/27/17 [History] Albuterol/Ipratropium [DuoNeb 3.0-0.5 MG/3 ML] 3 ml NEB Q6HRRT #60 neb 12/30/17 [Rx] Amoxicillin/Potassium Clav [Augmentin 875-125 Tablet] 1 each PO BIDMEALS #14 tablet 12/30/17 [Rx] Aspirin [Ecotrin] 325 mg PO DAILY tab.ec 12/30/17 [Rx] Azithromycin [Zithromax] 500 mg PO DAILY #7 tab 12/30/17 [Rx] Bisacodyl [Dulcolax] 5 mg PO DAILY PRN tablet 12/30/17 [Rx] Cholecalciferol (Vitamin D3) [Vitamin D3] 1,000 units PO DAILY tablet 12/30/17 [Rx] Levothyroxine 112 mcg PO ACBREAKFAST #60 tablet 12/30/17 [Rx] Magnesium Oxide 400 mg PO DAILY tablet 12/30/17 [Rx] Sennosides [Senna] 8.6 mg PO BID PRN tablet 12/30/17 [Rx] guaiFENesin [Mucinex] 600 mg PO BID #14 tab.er.12h 12/30/17 [Rx] Patient Handouts: Ceftriaxone injection, Community-Acquired Pneumonia, Adult, [id number] Forms: ED Department Discharge Referrals: PCP,Unknown [Primary Care Provider] - - Discharge Summary/Plan Comment DC Time >30 min.: Yes (Coordination of care ) Discharge Summary/Plan Comment: As above. Extensive precautions were given to the patient, who is in agreement with the treatment plan, although no baseline organic brain syndrome secondary to his Down syndrome. A copy of this discharge summary will be provided to the shelter. See Patient Instructions for further treatment and plan. - General Info Date of Service: 12/30/17 Admission Dx/Problem (Free Text: Patient admitted for treatment of pneumonia/fever. Questionable brief seconds of seizure-like activity observed at shelter prior to transfer. No seizure- like activity observed by EMS or staff since coming to hospital. Subjective Update: Patient is a poor historian secondary to his baseline mental status. Functional Status: Reports: Pain Controlled, Tolerating Diet (With no aspiration during this hospitalization), Urinating, Incentive Spirometry. Denies: Ambulating (Stable left hemiparesis), New Symptoms Numeric/FACES Score: 0 - Review of Systems General: Reports: Weakness (Stable left hemiparesis). Denies: Fever, Chills, Appetite (Adequate) HEENT: Reports: No Symptoms Pulmonary: Reports: No Symptoms Cardiovascular: Reports: No Symptoms Gastrointestinal: Reports: No Symptoms Genitourinary: Reports: No Symptoms Musculoskeletal: Reports: No Symptoms Skin: Reports: Other (Stable venous stasis dermatitis of the lower extremities) Neurological: Reports: Confusion (Stable), Difficulty Walking (As above), Weakness (As above), Gait Disturbance (Left hemiparesis as above). Denies: Seizure Psychiatric: Reports: Confusion (As above). Denies: Depression, Anxiety, Agitation, Hallucinations - Patient Data Vitals - Most Recent: Last Vital Signs Temp 36.9 C 12/30/17 08:00 Pulse 100 12/30/17 08:00 Resp 18 12/30/17 08:00 BP 102/66 12/30/17 08:00 Pulse Ox 92 L 12/30/17 08:00 Vital Signs - 24 hr 12/29/17 12/29/17 12/29/17 12:00 15:20 18:58 Temperature [ 36.8 C 37.1 C 37.9 C Temporal] Pulse, 100 95 104 H Peripheral [ Pulse Oximetry] Respiratory 16 18 20 Rate Blood Pressure 124/68 123/60 117/65 [Left Arm] O2 Sat by Pulse 92 L 92 L 91 L Oximetry 12/29/17 12/29/17 12/30/17 20:45 23:20 03:12 Temperature [ 37.2 C 37.3 C 36.7 C Temporal] Pulse, 101 H 91 Peripheral [ Pulse Oximetry] Respiratory 20 20 Rate Blood Pressure 94/59 L 94/55 L [Left Arm] O2 Sat by Pulse 91 L 91 L Oximetry 12/30/17 08:00 Temperature [ 36.9 C Temporal] Pulse, 100 Peripheral [ Pulse Oximetry] Respiratory 18 Rate Blood Pressure 102/66 [Left Arm] O2 Sat by Pulse 92 L Oximetry Weight - Most Recent: 70.76 kg I&O - Last 24 hours: Intake & Output 12/29/17 12/30/17 12/30/17 22:59 06:59 14:59 Intake Total 200 200 360 Balance 200 200 360 Imaging Impressions - Last 24 hrs: Chest x-ray, portable, on 12/30/18 shows evidence of moderate COPD changes with right middle lobe atelectasis versus pulmonary infiltrate. Mild prominence of proximal aortic arch with no cardiomegaly, pneumothorax, CHF, etc.. Final radiological report is pending. Chest x-ray him a portable, from 12/29/17 shows left basilar atelectasis versus consolidation with additional similar finding the right lung base Lab Results - Last 24 hrs: Laboratory Results - last 24 hr 12/29/17 12/30/17 12/30/17 Range/Units 07:00 07:35 07:35 WBC (4.0-10.2) K/uL RBC (4.33-5.41) M/uL Hgb (13.1-16.8) g/dL Hct (39.0-49.0) % MCV (84.0-98.0) fL MCH (28.2-33.3) pg MCHC (31.7-36.0) g/dL RDW (11.2-14.1) % Plt Count (150-350) K/uL Neut % (Auto) (45.0-80.0) % Lymph % (Auto) (10.0-50.0) % [place] % (Auto) (2.0-14.0) % Eos % (Auto) (0.0-5.0) % Baso % (Auto) (0.0-2.0) % Neut # (Auto) (1.40-7.00) K/uL Lymph # (Auto) (0.50-3.50) K/uL [place] # (Auto) (0.00-1.00) K/uL Eos # (Auto) (0.00-0.50) K/uL Baso # (Auto) (0.00-0.20) K/uL Sodium 141 (136-145) mmol/L Potassium 3.9 (3.5-5.1) mmol/L Chloride 106 (98-107) mmol/L Carbon Dioxide 29.2 (21.0-32.0) mmol/L BUN 6 L (7-18) mg/dL Creatinine 0.79 (0.51-1.17) mg/dL Est Cr Clr Drug Dosing 92.20 mL/min Estimated GFR (MDRD) > 60 mL/min Glucose 98 (74-106) mg/dL Lactic Acid 0.8 (0.4-2.0) mmol/L Calcium 8.3 L (8.5-10.1) mg/dL Magnesium 1.8 (1.8-2.4) mg/dL Total Bilirubin 0.4 (0.2-1.0) mg/dL AST 29 (15-37) U/L ALT 45 (12-78) U/L Alkaline Phosphatase 72 (46-116) IU/L Total Protein 5.9 L (6.4-8.2) g/dL Albumin 2.4 L (3.4-5.0) g/dL Vitamin D 25-Hydroxy 23.9 L (30-100) ng/mL 12/30/17 Range/Units 07:35 WBC 8.8 (4.0-10.2) K/uL RBC 4.83 (4.33-5.41) M/uL Hgb 13.8 (13.1-16.8) g/dL Hct 40.6 (39.0-49.0) % MCV 84.1 (84.0-98.0) fL MCH 28.6 (28.2-33.3) pg MCHC 34.0 (31.7-36.0) g/dL RDW 15.6 H (11.2-14.1) % Plt Count 191 (150-350) K/uL Neut % (Auto) 76.2 (45.0-80.0) % Lymph % (Auto) 13.0 (10.0-50.0) % [place] % (Auto) 7.2 (2.0-14.0) % Eos % (Auto) 3.1 (0.0-5.0) % Baso % (Auto) 0.5 (0.0-2.0) % Neut # (Auto) 6.71 (1.40-7.00) K/uL Lymph # (Auto) 1.14 (0.50-3.50) K/uL [place] # (Auto) 0.63 (0.00-1.00) K/uL Eos # (Auto) 0.27 (0.00-0.50) K/uL Baso # (Auto) 0.04 (0.00-0.20) K/uL Sodium (136-145) mmol/L Potassium (3.5-5.1) mmol/L Chloride (98-107) mmol/L Carbon Dioxide (21.0-32.0) mmol/L BUN (7-18) mg/dL Creatinine (0.51-1.17) mg/dL Est Cr Clr Drug Dosing mL/min Estimated GFR (MDRD) mL/min Glucose (74-106) mg/dL Lactic Acid (0.4-2.0) mmol/L Calcium (8.5-10.1) mg/dL Magnesium (1.8-2.4) mg/dL Total Bilirubin (0.2-1.0) mg/dL AST (15-37) U/L ALT (12-78) U/L Alkaline Phosphatase (46-116) IU/L Total Protein (6.4-8.2) g/dL Albumin (3.4-5.0) g/dL Vitamin D 25-Hydroxy (30-100) ng/mL Laboratory Tests 12/27/17 12/27/17 12/27/17 Range/Units 10:05 10:05 10:45 WBC 30.5 H (4.0-10.2) K/uL RBC 5.73 H (4.33-5.41) M/uL Hgb 16.4 (13.1-16.8) g/dL Hct 47.2 (39.0-49.0) % MCV 82.4 L (84.0-98.0) fL MCH 28.6 (28.2-33.3) pg MCHC 34.7 (31.7-36.0) g/dL RDW 16.4 H (11.2-14.1) % Plt Count 273 (150-350) K/uL Neut % (Auto) (45.0-80.0) % Lymph % (Auto) (10.0-50.0) % [place] % (Auto) (2.0-14.0) % Eos % (Auto) (0.0-5.0) % Baso % (Auto) (0.0-2.0) % Neut # (Auto) (1.40-7.00) K/uL Lymph # (Auto) (0.50-3.50) K/uL [place] # (Auto) (0.00-1.00) K/uL Eos # (Auto) (0.00-0.50) K/uL Baso # (Auto) (0.00-0.20) K/uL Add Manual Diff Yes Neutrophils % (Manual) 82 Band Neutrophils % 10 Lymphocytes % (Manual) 7 Monocytes % (Manual) 1 Absolute Neutrophils 28.0600 Lymphocytes # (Manual) 2.1350 Monocytes # (Manual) 0.3050 Sodium 141 (136-145) mmol/L Potassium 3.9 (3.5-5.1) mmol/L Chloride 105 (98-107) mmol/L Carbon Dioxide 24.1 (21.0-32.0) mmol/L BUN 17 (7-18) mg/dL Creatinine 0.94 (0.51-1.17) mg/dL Est Cr Clr Drug Dosing TNP Estimated GFR (MDRD) > 60 mL/min Glucose 139 H (74-106) mg/dL Lactic Acid 3.1 H (0.4-2.0) mmol/L Calcium 9.3 (8.5-10.1) mg/dL Magnesium (1.8-2.4) mg/dL Total Bilirubin 0.3 (0.2-1.0) mg/dL AST 34 (15-37) U/L ALT 46 (12-78) U/L Alkaline Phosphatase 79 (46-116) IU/L NT-Pro-B Natriuret Pep (0-125) pg/mL Total Protein 6.8 (6.4-8.2) g/dL Albumin 3.1 L (3.4-5.0) g/dL Vitamin D 25-Hydroxy (30-100) ng/mL TSH, Ultra Sensitive (0.358-3.740) mIU/mL Specimen Type Urine Color Urine Appearance Urine pH (5.0-9.0) Ur Specific [place] (1.005-1.030) Urine Protein (NEGATIVE) mg/dL Urine Glucose (UA) (NEGATIVE) mg/dL Urine Ketones (NEGATIVE) mg/dL Urine Occult Blood (NEGATIVE) Urine Nitrite (NEGATIVE) Urine Bilirubin (NEGATIVE) Urine Urobilinogen (0.2-1.0) E.U./dL Ur Leukocyte Esterase (NEGATIVE) Urine RBC /HPF Urine WBC /HPF Ur Epithelial Cells /LPF Urine Bacteria (NONE TO FEW) /HPF Urine Mucus (NEGATIVE) /LPF 12/27/17 12/27/17 12/28/17 Range/Units 10:45 11:18 06:55 WBC (4.0-10.2) K/uL RBC (4.33-5.41) M/uL Hgb (13.1-16.8) g/dL Hct (39.0-49.0) % MCV (84.0-98.0) fL MCH (28.2-33.3) pg MCHC (31.7-36.0) g/dL RDW (11.2-14.1) % Plt Count (150-350) K/uL Neut % (Auto) (45.0-80.0) % Lymph % (Auto) (10.0-50.0) % [place] % (Auto) (2.0-14.0) % Eos % (Auto) (0.0-5.0) % Baso % (Auto) (0.0-2.0) % Neut # (Auto) (1.40-7.00) K/uL Lymph # (Auto) (0.50-3.50) K/uL [place] # (Auto) (0.00-1.00) K/uL Eos # (Auto) (0.00-0.50) K/uL Baso # (Auto) (0.00-0.20) K/uL Add Manual Diff Neutrophils % (Manual) Band Neutrophils % Lymphocytes % (Manual) Monocytes % (Manual) Absolute Neutrophils Lymphocytes # (Manual) Monocytes # (Manual) Sodium 142 (136-145) mmol/L Potassium 4.0 (3.5-5.1) mmol/L Chloride 107 (98-107) mmol/L Carbon Dioxide 28.4 (21.0-32.0) mmol/L BUN 14 (7-18) mg/dL Creatinine 0.96 (0.51-1.17) mg/dL Est Cr Clr Drug Dosing 75.37 Estimated GFR (MDRD) > 60 mL/min Glucose 108 H (74-106) mg/dL Lactic Acid (0.4-2.0) mmol/L Calcium 8.4 L (8.5-10.1) mg/dL Magnesium (1.8-2.4) mg/dL Total Bilirubin 0.4 (0.2-1.0) mg/dL AST 29 (15-37) U/L ALT 46 (12-78) U/L Alkaline Phosphatase 68 (46-116) IU/L NT-Pro-B Natriuret Pep 26 (0-125) pg/mL Total Protein 6.0 L (6.4-8.2) g/dL Albumin 2.6 L (3.4-5.0) g/dL Vitamin D 25-Hydroxy (30-100) ng/mL TSH, Ultra Sensitive 7.189 H (0.358-3.740) mIU/mL Specimen Type [place] Urine Color Yellow Urine Appearance Clear Urine pH 5.5 (5.0-9.0) Ur Specific [place] 1.020 (1.005-1.030) Urine Protein Negative (NEGATIVE) mg/dL Urine Glucose (UA) Negative (NEGATIVE) mg/dL Urine Ketones Negative (NEGATIVE) mg/dL Urine Occult Blood Negative (NEGATIVE) Urine Nitrite Negative (NEGATIVE) Urine Bilirubin Negative (NEGATIVE) Urine Urobilinogen 0.2 (0.2-1.0) E.U./dL Ur Leukocyte Esterase Negative (NEGATIVE) Urine RBC 0-5 /HPF Urine WBC 0-5 /HPF Ur Epithelial Cells Few /LPF Urine Bacteria Few (NONE TO FEW) /HPF Urine Mucus Few H (NEGATIVE) /LPF 12/28/17 12/28/17 12/29/17 Range/Units 06:55 06:55 07:00 WBC 10.9 H (4.0-10.2) K/uL RBC 5.04 (4.33-5.41) M/uL Hgb 14.6 D (13.1-16.8) g/dL Hct 42.0 (39.0-49.0) % MCV 83.3 L (84.0-98.0) fL MCH 29.0 (28.2-33.3) pg MCHC 34.8 (31.7-36.0) g/dL RDW 15.8 H (11.2-14.1) % Plt Count 225 (150-350) K/uL Neut % (Auto) 79.6 (45.0-80.0) % Lymph % (Auto) 12.9 (10.0-50.0) % [place] % (Auto) 6.2 (2.0-14.0) % Eos % (Auto) 0.8 (0.0-5.0) % Baso % (Auto) 0.5 (0.0-2.0) % Neut # (Auto) 8.70 H (1.40-7.00) K/uL Lymph # (Auto) 1.41 (0.50-3.50) K/uL [place] # (Auto) 0.68 (0.00-1.00) K/uL Eos # (Auto) 0.09 (0.00-0.50) K/uL Baso # (Auto) 0.05 (0.00-0.20) K/uL Add Manual Diff Neutrophils % (Manual) Band Neutrophils % Lymphocytes % (Manual) Monocytes % (Manual) Absolute Neutrophils Lymphocytes # (Manual) Monocytes # (Manual) Sodium 142 (136-145) mmol/L Potassium 3.8 (3.5-5.1) mmol/L Chloride 108 H (98-107) mmol/L Carbon Dioxide 28.6 (21.0-32.0) mmol/L BUN 9 (7-18) mg/dL Creatinine 0.82 (0.51-1.17) mg/dL Est Cr Clr Drug Dosing 88.24 Estimated GFR (MDRD) > 60 mL/min Glucose 99 (74-106) mg/dL Lactic Acid 0.8 (0.4-2.0) mmol/L Calcium 7.9 L (8.5-10.1) mg/dL Magnesium (1.8-2.4) mg/dL Total Bilirubin 0.4 (0.2-1.0) mg/dL AST 28 (15-37) U/L ALT 43 (12-78) U/L Alkaline Phosphatase 67 (46-116) IU/L NT-Pro-B Natriuret Pep (0-125) pg/mL Total Protein 5.6 L (6.4-8.2) g/dL Albumin 2.3 L (3.4-5.0) g/dL Vitamin D 25-Hydroxy (30-100) ng/mL TSH, Ultra Sensitive (0.358-3.740) mIU/mL Specimen Type Urine Color Urine Appearance Urine pH (5.0-9.0) Ur Specific [place] (1.005-1.030) Urine Protein (NEGATIVE) mg/dL Urine Glucose (UA) (NEGATIVE) mg/dL Urine Ketones (NEGATIVE) mg/dL Urine Occult Blood (NEGATIVE) Urine Nitrite (NEGATIVE) Urine Bilirubin (NEGATIVE) Urine Urobilinogen (0.2-1.0) E.U./dL Ur Leukocyte Esterase (NEGATIVE) Urine RBC /HPF Urine WBC /HPF Ur Epithelial Cells /LPF Urine Bacteria (NONE TO FEW) /HPF Urine Mucus (NEGATIVE) /LPF 12/29/17 12/29/17 12/30/17 Range/Units 07:00 07:00 07:35 WBC 9.2 (4.0-10.2) K/uL RBC 4.68 (4.33-5.41) M/uL Hgb 13.6 (13.1-16.8) g/dL Hct 39.4 (39.0-49.0) % MCV 84.2 (84.0-98.0) fL MCH 29.1 (28.2-33.3) pg MCHC 34.5 (31.7-36.0) g/dL RDW 15.7 H (11.2-14.1) % Plt Count 200 (150-350) K/uL Neut % (Auto) 71.5 (45.0-80.0) % Lymph % (Auto) 18.8 (10.0-50.0) % [place] % (Auto) 6.7 (2.0-14.0) % Eos % (Auto) 2.2 (0.0-5.0) % Baso % (Auto) 0.8 (0.0-2.0) % Neut # (Auto) 6.57 (1.40-7.00) K/uL Lymph # (Auto) 1.73 (0.50-3.50) K/uL [place] # (Auto) 0.62 (0.00-1.00) K/uL Eos # (Auto) 0.20 (0.00-0.50) K/uL Baso # (Auto) 0.07 (0.00-0.20) K/uL Add Manual Diff Neutrophils % (Manual) Band Neutrophils % Lymphocytes % (Manual) Monocytes % (Manual) Absolute Neutrophils Lymphocytes # (Manual) Monocytes # (Manual) Sodium 141 (136-145) mmol/L Potassium 3.9 (3.5-5.1) mmol/L Chloride 106 (98-107) mmol/L Carbon Dioxide 29.2 (21.0-32.0) mmol/L BUN 6 L (7-18) mg/dL Creatinine 0.79 (0.51-1.17) mg/dL Est Cr Clr Drug Dosing 92.20 Estimated GFR (MDRD) > 60 mL/min Glucose 98 (74-106) mg/dL Lactic Acid (0.4-2.0) mmol/L Calcium 8.3 L (8.5-10.1) mg/dL Magnesium 1.8 (1.8-2.4) mg/dL Total Bilirubin 0.4 (0.2-1.0) mg/dL AST 29 (15-37) U/L ALT 45 (12-78) U/L Alkaline Phosphatase 72 (46-116) IU/L NT-Pro-B Natriuret Pep (0-125) pg/mL Total Protein 5.9 L (6.4-8.2) g/dL Albumin 2.4 L (3.4-5.0) g/dL Vitamin D 25-Hydroxy 23.9 L (30-100) ng/mL TSH, Ultra Sensitive (0.358-3.740) mIU/mL Specimen Type Urine Color Urine Appearance Urine pH (5.0-9.0) Ur Specific [place] (1.005-1.030) Urine Protein (NEGATIVE) mg/dL Urine Glucose (UA) (NEGATIVE) mg/dL Urine Ketones (NEGATIVE) mg/dL Urine Occult Blood (NEGATIVE) Urine Nitrite (NEGATIVE) Urine Bilirubin (NEGATIVE) Urine Urobilinogen (0.2-1.0) E.U./dL Ur Leukocyte Esterase (NEGATIVE) Urine RBC /HPF Urine WBC /HPF Ur Epithelial Cells /LPF Urine Bacteria (NONE TO FEW) /HPF Urine Mucus (NEGATIVE) /LPF 12/30/17 12/30/17 Range/Units 07:35 07:35 WBC 8.8 (4.0-10.2) K/uL RBC 4.83 (4.33-5.41) M/uL Hgb 13.8 (13.1-16.8) g/dL Hct 40.6 (39.0-49.0) % MCV 84.1 (84.0-98.0) fL MCH 28.6 (28.2-33.3) pg MCHC 34.0 (31.7-36.0) g/dL RDW 15.6 H (11.2-14.1) % Plt Count 191 (150-350) K/uL Neut % (Auto) 76.2 (45.0-80.0) % Lymph % (Auto) 13.0 (10.0-50.0) % [place] % (Auto) 7.2 (2.0-14.0) % Eos % (Auto) 3.1 (0.0-5.0) % Baso % (Auto) 0.5 (0.0-2.0) % Neut # (Auto) 6.71 (1.40-7.00) K/uL Lymph # (Auto) 1.14 (0.50-3.50) K/uL [place] # (Auto) 0.63 (0.00-1.00) K/uL Eos # (Auto) 0.27 (0.00-0.50) K/uL Baso # (Auto) 0.04 (0.00-0.20) K/uL Add Manual Diff Neutrophils % (Manual) Band Neutrophils % Lymphocytes % (Manual) Monocytes % (Manual) Absolute Neutrophils Lymphocytes # (Manual) Monocytes # (Manual) Sodium (136-145) mmol/L Potassium (3.5-5.1) mmol/L Chloride (98-107) mmol/L Carbon Dioxide (21.0-32.0) mmol/L BUN (7-18) mg/dL Creatinine (0.51-1.17) mg/dL Est Cr Clr Drug Dosing Estimated GFR (MDRD) mL/min Glucose (74-106) mg/dL Lactic Acid 0.8 (0.4-2.0) mmol/L Calcium (8.5-10.1) mg/dL Magnesium (1.8-2.4) mg/dL Total Bilirubin (0.2-1.0) mg/dL AST (15-37) U/L ALT (12-78) U/L Alkaline Phosphatase (46-116) IU/L NT-Pro-B Natriuret Pep (0-125) pg/mL Total Protein (6.4-8.2) g/dL Albumin (3.4-5.0) g/dL Vitamin D 25-Hydroxy (30-100) ng/mL TSH, Ultra Sensitive (0.358-3.740) mIU/mL Specimen Type Urine Color Urine Appearance Urine pH (5.0-9.0) Ur Specific [place] (1.005-1.030) Urine Protein (NEGATIVE) mg/dL Urine Glucose (UA) (NEGATIVE) mg/dL Urine Ketones (NEGATIVE) mg/dL Urine Occult Blood (NEGATIVE) Urine Nitrite (NEGATIVE) Urine Bilirubin (NEGATIVE) Urine Urobilinogen (0.2-1.0) E.U./dL Ur Leukocyte Esterase (NEGATIVE) Urine RBC /HPF Urine WBC /HPF Ur Epithelial Cells /LPF Urine Bacteria (NONE TO FEW) /HPF Urine Mucus (NEGATIVE) /LPF REESE Results - Last 24 hrs: Microbiology 12/27/17 12:30 Aerobic Blood Culture - Preliminary Blood - Venous - Lab Draw NO GROWTH AFTER 2 DAYS Anaerobic Blood Culture - Preliminary NO GROWTH AFTER 2 DAYS 12/27/17 11:35 Aerobic Blood Culture - Preliminary Blood - Venous NO GROWTH AFTER 2 DAYS Anaerobic Blood Culture - Preliminary NO GROWTH AFTER 2 DAYS Microbiology 12/27/17 12:30 Blood - Venous - Lab Draw Aerobic Blood Culture - Preliminary NO GROWTH AFTER 2 DAYS 12/27/17 12:30 Blood - Venous - Lab Draw Anaerobic Blood Culture - Preliminary NO GROWTH AFTER 2 DAYS 12/27/17 11:35 Blood - Venous Aerobic Blood Culture - Preliminary NO GROWTH AFTER 2 DAYS 12/27/17 11:35 Blood - Venous Anaerobic Blood Culture - Preliminary NO GROWTH AFTER 2 DAYS Med Orders - Current: Current Medications Acetaminophen (Tylenol) 650 mg PO Q6H PRN PRN Reason: Pain (Mild 1-3)/fever Last Admin: 12/29/17 19:20 Dose: 650 mg Albuterol/Ipratropium (Duoneb 3.0-0.5 Mg/3 Ml) 3 ml NEB Q6HRRT [facility] Last Admin: 12/30/17 08:26 Dose: 3 ml Aspirin (Ecotrin) 325 mg PO DAILY [facility] Last Admin: 12/30/17 08:26 Dose: 325 mg Bisacodyl (Dulcolax) 5 mg PO DAILY PRN PRN Reason: Constipation Bisacodyl (Dulcolax) 10 mg RECTAL Q3D PRN PRN Reason: Constipation Calcium Carbonate/Glycine (Tums Extra Strength) 750 mg PO ONETIME ONE Stop: 12/30/17 13:46 Cholecalciferol (Vitamin D3) 1,000 units PO DAILY [facility] Last Admin: 12/30/17 08:25 Dose: 1,000 units Enoxaparin Sodium (Lovenox) 40 mg SUBCUT DAILY [facility] Last Admin: 12/30/17 08:26 Dose: 40 mg Azithromycin 500 mg/ Sodium (Chloride) 250 mls @ 250 mls/hr IV Q24H [facility] Last Admin: 12/29/17 12:13 Dose: 250 mls/hr Ceftriaxone Sodium 1 gm/ (Sodium Chloride) 100 mls @ 200 mls/hr IV Q24H [facility] Last Admin: 12/29/17 11:26 Dose: 200 mls/hr Levothyroxine Sodium (Levothyroxine) 112 mcg PO ACBREAKFAST [facility] Last Admin: 12/30/17 08:26 Dose: 112 mcg Lorazepam (Ativan) 1 mg IVPUSH Q6H PRN PRN Reason: Agitation Last Admin: 12/30/17 01:58 Dose: 1 mg Magnesium Oxide (Magnesium Oxide) 400 mg PO DAILY [facility] Last Admin: 12/30/17 08:26 Dose: 400 mg Ondansetron HCl (Zofran) 4 mg IVPUSH Q6H PRN PRN Reason: Nausea/Vomiting Last Admin: 12/27/17 20:16 Dose: 4 mg Senna (Senna) 8.6 mg PO BID PRN PRN Reason: Constipation Sodium Chloride (Saline Flush) 10 ml FLUSH ASDIRECTED PRN PRN Reason: Keep Vein Open Tamsulosin HCl (Flomax) 0.4 mg PO DAILY@1830 [facility] Last Admin: 12/29/17 19:18 Dose: 0.4 mg Discontinued Medications Acetaminophen (Tylenol) 650 mg PO NOW ONE Stop: 12/27/17 13:07 Last Admin: 12/27/17 13:12 Dose: 650 mg Calcium Carbonate/Glycine (Tums) 1,000 mg PO ONETIME ONE Stop: 12/29/17 13:43 Last Admin: 12/29/17 15:09 Dose: 1,000 mg Ergocalciferol (Vitamin D2) 50,000 units PO ONETIME ONE Stop: 12/29/17 13:43 Last Admin: 12/29/17 15:10 Dose: 50,000 units Sodium Chloride (Normal Saline) 1,000 mls @ 75 mls/hr IV ASDIRECTED [facility] Last Admin: 12/29/17 10:43 Dose: 75 mls/hr Levothyroxine Sodium (Synthroid) 100 mcg PO ACBREAKFAST [facility] Last Admin: 12/28/17 11:29 Dose: Not Given Levothyroxine Sodium (Levothyroxine) 112 mcg PO ACBREAKFAST [facility] - Exam Quality Assessment: Reports: Supplemental Oxygen, DVT Prophylaxis (Lovenox). Denies: Central Line/PICC, Urine Catheter, Skin Breakdown, Restraints General: Reports: Cooperative, Other (Patient sleeping). Denies: Oriented ( Stable confusion. Patient nonverbal) HEENT: Reports: Pupils Equal, Pupils Reactive, EOMI, Mucous Membr. Moist/[place] Neck: Reports: Supple, Trachea Midline, No JVD, No Thyromegaly. Denies: Lymphadenopathy Lungs: Reports: Normal Respiratory Effort, Rales (Stable mild bilateral basilar rales). Denies: Rhonchi, Rub, Stridor, Wheezing Cardiovascular: Reports: Regular Rate, Regular Rhythm, No Murmurs. Denies: Gallops, Rubs GI/Abdominal Exam: Normal Bowel Sounds, Soft, Non-Tender, No Organomegaly, No Distention, No Abnormal Bruit, No Mass, Other (Obese). No: Guarding (Male) Exam: Deferred Rectal (Males) Exam: Deferred Back Exam: Reports: Normal Inspection, Full Range of Motion. Denies: CVA Tenderness (L), CVA Tenderness (R), Muscle Spasm Extremities: Non-Tender, Pedal Edema (Trace bilateral pedal/pretibial edema with moderate venous stasis dermatitis over the anterior tibial regions bilaterally. Some muscular atrophy and legs bilaterally). 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 Denies: Agitated, Hallucinations, Withdrawal Symptoms
[2017-12-30] MEDS: Sodium Chloride 0.9% 10 ML Syringe FLUSH PRN ×2 (11:25→12:06)
[2017-12-30] MEDS: cefTRIAXone 1 GM in Sodium Chloride 0.9% 100 ML IV SCH (11:25)
[2017-12-30] MEDS: Azithromycin 500 MG in Sodium Chloride 0.9% 250 ML IV SCH (12:05)
[2017-12-30] MEDS ORDERED: Calcium Carbonate 750 MG Tab.Chew PO ONE (13:45)
== END 2017-12-30 13:15 | DRG 178 ==
LOC: LL.ED 09:48 → UNDOADMIN 13:21 → LL.MS 13:21
PROVIDERS: ADMIT Emergency Medicine; ATTEND Emergency Medicine
DX: J69.0 Pneumonitis due to inhalation of food and vomit (principal); G81.14 Spastic hemiplegia affecting left nondominant side; Q90.9 Down syndrome, unspecified; E03.9 Hypothyroidism, unspecified; Z66 Do not resuscitate; Z51.5 Encounter for palliative care; F03.90 Unspecified dementia, unspecified severity, without behavioral disturbance, psychotic disturbance, mood disturbance, and anxiety; E88.09 Other disorders of plasma-protein metabolism, not elsewhere classified; J44.9 Chronic obstructive pulmonary disease, unspecified; E83.51 Hypocalcemia; R56.9 Unspecified convulsions; I73.9 Peripheral vascular disease, unspecified; I95.9 Hypotension, unspecified; F41.8 Other specified anxiety disorders; M15.0 Primary generalized (osteo)arthritis; R74.0 Nonspecific elevation of levels of transaminase and lactic acid dehydrogenase [LDH]; I87.8 Other specified disorders of veins; Z79.899 Other long term (current) drug therapy
CPT/HCPCS: 36415; 71045; 80053; 81001; 83605; 83880; 85025; 87040 ×2; 96365; 96367; 96375; 99285; A9270; J0456; J0696; J2060; J7050 ×2; 82306; 83735; 84443; 94640; J1650; J2405; J7030; J7620-GY

== ENCOUNTER 2020-11-20 06:44 | Inpatient (IN) | payer MEDICARE, MEDICAID ==
[2020-11-20] MEDS ORDERED: Acetaminophen 650 MG Supp RECTAL ONE (06:59)
[2020-11-20 07:46] LABS: CHLORIDE,CL 108 mmol/L (98-107); SODIUM,NA 143 mmol/L (136-145)
[2020-11-20 07:49] LABS: ANION GAP 15.2 meq/L (7-15)
--- NOTE | 2020-11-20 08:24 | EDM.PDOC ---
ED HPI GENERAL MEDICAL PROBLEM - General Chief Complaint: Genitourinary Problem Stated Complaint: Fever, tachycardia Time Seen by Provider: 11/20/20 07:25 Source of Information: Reports: Retirement Records, Other History Limitations: Reports: Language Barrier, Other - History of Present Illness INITIAL COMMENTS - FREE TEXT/NARRATIVE: Nonverbal Down syndrome 55-year-old white male that is brought to the ER via EMS secondary to fever. [facility]. States the fever started sometime during the night he was given Tylenol x1 but she said he had questionable chills yesterday at lunch but it was not really addressed. She states he is usually nonverbal but active and has done this with urinary tract and sepsis before. She states she will try to call the nephew who is recently obtain power of recreation officer. She states he is a DNR but is unsure the course they would wish to continue with IVs or even IV antibiotic she says she will try to contact the nephew and have them give us call. She says prior to this though he had been fine had no other signs or symptoms. Onset: Today Associated Symptoms: Reports: Fever/Chills Treatments CARD FILER: Reports: Urinary Catheter in Place Other Treatments CARD FILER: Patient has long-term Castelan placement last Castelan was changed 1 week ago - Related Data Allergies Allergy/AdvReac Type Severity Reaction Status Date / Time No Known Allergies Allergy Verified 11/20/20 06:53 Home Meds: Home Meds Acetaminophen [Tylenol] 2 tab PO BID 12/27/17 [History] Acetaminophen [Tylenol] 2 tab PO Q4HR PRN 12/27/17 [History] Bisacodyl [Biscolax] 10 mg RC Q3D PRN 12/27/17 [History] Multivit,Calc,Mins/Iron/Folic [Thera-M Caplet] 1 tab PO DAILY 12/27/17 [History] bisacodyL [Ducodyl] 10 mg PO DAILY PRN 12/27/17 [History] Aspirin [Ecotrin EC] 325 mg PO DAILY tab.ec 12/30/17 [Rx] Cholecalciferol (Vitamin D3) [Vitamin D3] 1,000 units PO DAILY tablet 12/30/17 [Rx] Levothyroxine 112 mcg PO ACBREAKFAST #60 tablet 12/30/17 [Rx] Magnesium Oxide 400 mg PO DAILY tablet 12/30/17 [Rx] Alum Hydrox/Mag Hydrox/Simeth [Mag-Al Plus] 30 ml PO Q4HR PRN 04/10/18 [History] Sennosides [Senna] 8.6 mg PO BID 04/10/18 [History] levETIRAcetam [Keppra] 500 mg PO BID #60 tablet 04/11/18 [Rx] Ibuprofen 400 mg PO Q4HR PRN 11/20/20 [History] Past Medical History HEENT History: Reports: Other (See Below) Other HEENT History: pt unable to answer questions d/t congitive deficit Musculoskeletal History: Reports: Other (See Below) Other Musculoskeletal History: spastic hemiplegia affecting left nondominant side, brace to LLE when ever pt is up with stocking Neurological History: Reports: Other (See Below) Other Neuro History: down syndrome, unspecified dementia, spastic hemiplegia affecting left nondominate side Psychiatric History: Reports: Dementia, Other (See Below) Other Psychiatric History: down syndrome, unable to answer questions Endocrine/Metabolic History: Reports: Hypothyroidism Dermatologic History: Reports: Other (See Below) Other Dermatologic History: rosacea Social & Family History - Tobacco Use Tobacco Use Status *Q: Never Tobacco User - Caffeine Use Caffeine Use: Reports: None - Recreational Drug Use Recreational Drug Use: No ED ROS GENERAL - Review of Systems Review Of Systems: Comprehensive ROS is negative, except as noted in HPI. Constitutional: Reports: Fever, Chills. Denies: Weakness, Fatigue, Decreased Appetite HEENT: Reports: No Symptoms Respiratory: Reports: No Symptoms Cardiovascular: Reports: No Symptoms Endocrine: Reports: No Symptoms GI/Abdominal: Reports: No Symptoms. Denies: Constipation, Diarrhea : Reports: Other (PT has indwelling Castelan) Musculoskeletal: Reports: No Symptoms Skin: Reports: No Symptoms Neurological: Reports: No Symptoms Psychiatric: Denies: Agitation Hematologic/Lymphatic: Reports: No Symptoms Immunologic: Reports: No Symptoms ED EXAM, SEPSIS - Physical Exam Exam: See Below Exam Limited By: Other (Patient nonverbal will occasionally blink his eyes but unsure if it is due to commander to his normal. There is no grimace with noted during exam with palpation or pain) General Appearance: Alert, WD/WN, No Apparent Distress, Other (Patient does not look like he feels well) Eye Exam: Bilateral Eye: Normal Inspection Ears: Normal External Exam, Normal Canal, Normal TMs Nose: Normal Inspection, Normal Mucosa, No Blood Throat/Mouth: Normal Inspection, Normal Lips, Normal Teeth, Normal Gums, Normal Oropharynx, No Airway Compromise, Other (Dry mucous membranes) Head: Atraumatic, Normocephalic Neck: Normal Inspection, Supple, Non-Tender, Full Range of Motion, Other (Patient noted turning head side to side occasionally no adenopathy appreciated) Respiratory/Chest: No Respiratory Distress, Lungs Clear, Normal Breath Sounds, No Accessory Muscle Use, Chest Non-Tender Cardiovascular: Normal Peripheral Pulses, Regular Rate, Rhythm, No Edema, No Gallop, No JVD, No Murmur, No Rub, Tachycardia GI/Abdominal Exam: Normal Bowel Sounds, Soft, Non-Tender, No Organomegaly, No Distention, No Mass, Other (Could not elicit any grimace with palpation over the abdomen) Extremities: Normal Inspection, Normal Range of Motion, Non-Tender, No Pedal Edema, Normal Capillary Refill, Other (Patient noted slightly moving upper extremities and lower extremities while I am in the bed) Neurological: Alert, Other (Lower extremities moved with stimulation tickling soles of the feet). No: Oriented, CN II-XII Intact, Normal Cognition Psychiatric: Flat Affect. No: Normal Mood Skin: Warm, Dry, Intact, Normal Color, No Rash Lymphatic: Bilateral: No Adenopathy Course - Vital Signs Text/Narrative:: CBC BMP UA blood culture x2 chest x-ray urinalysis lactic acid Tylenol rectal 1 L normal saline bolus 1 g Rocephin IV Levaquin 750 IV vancomycin 1 g V second liter of fluids White count 27.7 neutrophil count 91.4 BUN/creatinine 30. / 1. 79 Patient is stabilized and actually has become more alert semioriented and talkative after IV hydration antibiotics. Patient will be admitted secondary to urosepsis bacteremia dehydration 1115 Last Recorded V/S: Last Vital Signs Temp 37.9 C 11/20/20 07:04 Pulse 97 11/20/20 09:53 Resp 20 11/20/20 09:53 BP 97/60 11/20/20 09:53 Pulse Ox 96 11/20/20 09:53 - Orders/Labs/Meds Orders: Active Orders 24 hr Category Date Time Status Chest 1V Frontal [CR] Stat Exams 11/20/20 08:18 Taken CULTURE BLOOD [BC] Stat Lab 11/20/20 07:15 Received CULTURE BLOOD [BC] Stat Lab 11/20/20 07:25 Received CULTURE BLOOD [BC] Stat Lab 11/20/20 08:18 Ordered CULTURE BLOOD [BC] Stat Lab 11/20/20 08:18 Ordered CULTURE URINE [RM] Stat Lab 11/20/20 08:50 Received cefTRIAXone [Rocephin] 1 gm Med 11/20/20 08:30 Active Sodium Chloride 0.9% [Normal Saline] 100 ml IV Q24H Blood Culture x2 Reflex Set [OM.PC] Stat Oth 11/20/20 06:59 Ordered Blood Culture x2 Reflex Set [OM.PC] Stat Oth 11/20/20 08:18 Ordered Medication Orders Ceftriaxone Sodium 1 gm/ (Sodium Chloride) 100 mls @ 200 mls/hr IV Q24H [facility] Last Admin: 11/20/20 08:30 Dose: 200 mls/hr Documented by: MISTY Labs: Laboratory Tests 11/20/20 11/20/20 11/20/20 Range/Units 07:15 07:15 07:15 WBC 27.7 H (4.0-10.2) K/uL RBC 5.07 (4.33-5.41) M/uL Hgb 14.3 (13.1-16.8) g/dL Hct 41.9 (39.0-49.0) % MCV 82.6 L (84.0-98.0) fL MCH 28.2 (28.2-33.3) pg MCHC 34.1 (31.7-36.0) g/dL RDW 16.3 H (11.2-14.1) % Plt Count 269 D (150-350) K/uL Neut % (Auto) 91.4 H (45.0-80.0) % Lymph % (Auto) 2.4 L (10.0-50.0) % [place] % (Auto) 6.1 (2.0-14.0) % Eos % (Auto) 0.0 (0.0-5.0) % Baso % (Auto) 0.1 (0.0-2.0) % Neut # (Auto) 25.27 H (1.40-7.00) K/uL Lymph # (Auto) 0.67 (0.50-3.50) K/uL [place] # (Auto) 1.69 H (0.00-1.00) K/uL Eos # (Auto) 0.00 (0.00-0.50) K/uL Baso # (Auto) 0.04 (0.00-0.20) K/uL Sodium 143 (136-145) mmol/L Potassium 3.5 (3.5-5.1) mmol/L Chloride 108 H (98-107) mmol/L Carbon Dioxide 23.3 (21.0-32.0) mmol/L Anion Gap 15.2 H (7-15) meq/L BUN 30 H (7-18) mg/dL Creatinine 1.79 H (0.51-1.17) mg/dL Est Cr Clr Drug Dosing TNP Estimated GFR (MDRD) 40 mL/min Glucose 132 H (70-99) mg/dL Lactic Acid 1.8 (0.4-2.0) mmol/L Calcium 8.3 L (8.5-10.1) mg/dL Specimen Type Urine Color Urine Appearance Urine pH (5.0-9.0) Ur Specific Bow (1.005-1.030) Urine Protein (NEGATIVE) mg/dL Urine Glucose (UA) (NEGATIVE) mg/dL Urine Ketones (NEGATIVE) mg/dL Urine Occult Blood (NEGATIVE) Urine Nitrite (NEGATIVE) Urine Bilirubin (NEGATIVE) Urine Urobilinogen (0.2-1.0) E.U./dL Ur Leukocyte Esterase (NEGATIVE) Urine RBC /HPF Urine WBC /HPF Ur Epithelial Cells /LPF Urine Bacteria (NONE TO FEW) /HPF Granular Casts (Auto) 11/20/20 Range/Units 08:50 WBC (4.0-10.2) K/uL RBC (4.33-5.41) M/uL Hgb (13.1-16.8) g/dL Hct (39.0-49.0) % MCV (84.0-98.0) fL MCH (28.2-33.3) pg MCHC (31.7-36.0) g/dL RDW (11.2-14.1) % Plt Count (150-350) K/uL Neut % (Auto) (45.0-80.0) % Lymph % (Auto) (10.0-50.0) % [place] % (Auto) (2.0-14.0) % Eos % (Auto) (0.0-5.0) % Baso % (Auto) (0.0-2.0) % Neut # (Auto) (1.40-7.00) K/uL Lymph # (Auto) (0.50-3.50) K/uL [place] # (Auto) (0.00-1.00) K/uL Eos # (Auto) (0.00-0.50) K/uL Baso # (Auto) (0.00-0.20) K/uL Sodium (136-145) mmol/L Potassium (3.5-5.1) mmol/L Chloride (98-107) mmol/L Carbon Dioxide (21.0-32.0) mmol/L Anion Gap (7-15) meq/L BUN (7-18) mg/dL Creatinine (0.51-1.17) mg/dL Est Cr Clr Drug Dosing Estimated GFR (MDRD) mL/min Glucose (70-99) mg/dL Lactic Acid (0.4-2.0) mmol/L Calcium (8.5-10.1) mg/dL Specimen Type Urincath Urine Color Yellow Urine Appearance Cloudy Urine pH 5.5 (5.0-9.0) Ur Specific Bow >= 1.030 (1.005-1.030) Urine Protein >=300 H (NEGATIVE) mg/dL Urine Glucose (UA) Negative (NEGATIVE) mg/dL Urine Ketones Negative (NEGATIVE) mg/dL Urine Occult Blood Large H (NEGATIVE) Urine Nitrite Negative (NEGATIVE) Urine Bilirubin Small H (NEGATIVE) Urine Urobilinogen 0.2 (0.2-1.0) E.U./dL Ur Leukocyte Esterase Trace H (NEGATIVE) Urine RBC 0-5 /HPF Urine WBC >100 H /HPF Ur Epithelial Cells Few /LPF Urine Bacteria Many H (NONE TO FEW) /HPF Granular Casts (Auto) Moderate Meds: Medications Generic Name Dose Route Start Last Admin Trade Name Freq PRN Reason Stop Dose Admin Ceftriaxone Sodium 1 gm/ 100 mls @ 200 mls/hr 11/20/20 08:30 11/20/20 08:30 Sodium Chloride IV 200 mls/hr Q24H [facility] Administration Discontinued Medications Generic Name Dose Route Start Last Admin Trade Name Han PRN Reason Stop Dose Admin Acetaminophen 650 mg 11/20/20 06:59 11/20/20 07:04 Acetaminophen 650 Mg Supp RECTAL 11/20/20 07:00 650 mg NOW ONE Administration Sodium Chloride 1,000 mls @ 999 mls/hr 11/20/20 08:46 11/20/20 08:47 Normal Saline IV 11/20/20 09:46 999 mls/hr .BOLUS ONE Administration Levofloxacin/Dextrose 750 mg/ 150 mls @ 100 mls/hr 11/20/20 08:51 11/20/20 09:20 Premix IV 11/20/20 10:20 100 mls/hr ONETIME ONE Administration Vancomycin HCl 1.5 gm/ Premix 300 mls @ 200 mls/hr 11/20/20 08:51 11/20/20 09:16 IV 11/20/20 10:20 200 mls/hr ONETIME ONE Administration Departure - Departure Time of Disposition: 11:00 Disposition: Admitted As Inpatient 66 Condition: Poor Clinical Impression: Sepsis associated hypotension, Bacteremia, Dehydration - Discharge Information *PRESCRIPTION DRUG MONITORING PROGRAM REVIEWED*: No *COPY OF PRESCRIPTION DRUG MONITORING REPORT IN PATIENT GEOVANNA: No Referrals: Maciel Weiss MD [Primary Care Provider] - Forms: ED Department Discharge, ED Department Discharge Sepsis Event Note (ED) - Evaluation Sepsis Screening Result: Possible Severe Sepsis Risk - Focused Exam Vital Signs: Vital Signs Temp Temp Pulse Resp BP Pulse Ox 11/20/20 09:53 97 20 97/60 96 11/20/20 08:49 90 22 H 95/44 L 97 11/20/20 08:06 92 21 H 77/46 L 97 11/20/20 07:34 99 22 H 93/47 L 100 11/20/20 07:26 108 H 20 77/44 L 99 11/20/20 07:04 37.9 C 11/20/20 06:46 37.9 C 117 H 22 H 89/48 L 93 L - Problem List & Annotations (1) Bacteremia SNOMED Code(s): 3373793 Code(s): R78.81 - BACTEREMIA Status: Acute Current Visit: Yes (2) Dehydration SNOMED Code(s): 07413733 Code(s): E86.0 - DEHYDRATION Status: Acute Current Visit: Yes (3) Sepsis associated hypotension SNOMED Code(s): 76155073 Code(s): A41.9 - SEPSIS, UNSPECIFIED ORGANISM; I95.9 - HYPOTENSION, UNSPECIFIED Status: Acute Current Visit: Yes - My Orders Last 24 Hours: My Active Orders 11/20/20 06:59 Blood Culture x2 Reflex Set [OM.PC] Stat 11/20/20 07:15 CULTURE BLOOD [BC] Stat 11/20/20 07:25 CULTURE BLOOD [BC] Stat 11/20/20 08:18 Chest 1V Frontal [CR] Stat CULTURE BLOOD [BC] Stat CULTURE BLOOD [BC] Stat Blood Culture x2 Reflex Set [OM.PC] Stat 11/20/20 08:30 cefTRIAXone [Rocephin] 1 gm Sodium Chloride 0.9% [Normal Saline] 100 ml IV Q24H 11/20/20 08:50 CULTURE URINE [RM] Stat - Assessment/Plan Admission H&P: Please use this note as an admission H&P (Patient will be admitted inpatient vital signs are stabilized critical care time with stabilization 30 minutes) Last 24 Hours: My Active Orders 11/20/20 06:59 Blood Culture x2 Reflex Set [OM.PC] Stat 11/20/20 07:15 CULTURE BLOOD [BC] Stat 11/20/20 07:25 CULTURE BLOOD [BC] Stat 11/20/20 08:18 Chest 1V Frontal [CR] Stat CULTURE BLOOD [BC] Stat CULTURE BLOOD [BC] Stat Blood Culture x2 Reflex Set [OM.PC] Stat 11/20/20 08:30 cefTRIAXone [Rocephin] 1 gm Sodium Chloride 0.9% [Normal Saline] 100 ml IV Q24H 11/20/20 08:50 CULTURE URINE [RM] Stat
[2020-11-20] MEDS ORDERED: cefTRIAXone 1 GM in Sodium Chloride 0.9% 100 ML IV SCH (08:30)
[2020-11-20] MEDS ORDERED: Sodium Chloride 0.9% 1,000 ML IV ONE (08:46)
[2020-11-20] MEDS ORDERED: Levofloxacin/Dextrose 5%-Water 750 MG in Premix Bag 1 BAG IV ONE (08:51)
[2020-11-20] MEDS ORDERED: VANCOmycin 1.5 GM/300 ML 1.5 GM in Premix Bag 1 BAG IV ONE (08:51)
[2020-11-20] MEDS: Enoxaparin 30 MG/0.3 ML Syringe SUBCUT SCH (13:23)
[2020-11-20] MEDS: Sodium Chloride 0.9% 1,000 ML IV SCH ×2 (13:23→23:24)
[2020-11-20] MEDS: Acetaminophen 650 MG Supp RECTAL PRN ×2 (15:39→23:28)
[2020-11-20] MEDS ORDERED: Albuterol/Ipratropium 3.0-0.5 MG/3 ML Neb Soln NEB ONE (15:40)
[2020-11-20] MEDS ORDERED: Aspirin 300 MG Supp RECTAL PRN (18:42)
--- NOTE | 2020-11-20 18:47 | PCM.SN.2 ---
- Free Text/Narrative Note: Spoke with patient's nephew Emil who is power of real estate associate attorney at 1840 at this time he does want him to be made comfortable with medicines IV fluids and antibiotics. I discussed in regards to him being hypotensive secondary to the infection we have gave 3 bags of fluid which now at this time may be causing little bit of respiratory issue in regards to CHF. He is okay with just course of comfort meds and comfort care. At this time after third liter of normal saline fluids will be held he will be given Xopenex nebulizer secondary to rhonchi on exam no rales were appreciated but I will recheck after Xopenex. Lasix is held secondary to the hypotension at this time may consider given a trial dose of 10 or 20 mg if the patient appears to be even worse respiratory effort. Patient will also be given aspirin 300 mg rectally every 6 as needed along with Tylenol 650 rectally every 4 as needed. Fluids restarted will be started at 75 cc/h. Secondary to patient being septic he may not survive the night due to his condition.
[2020-11-20] MEDS: cefTRIAXone 1 GM in Sodium Chloride 0.9% 100 ML IV SCH (19:28)
[2020-11-20] MEDS: Levalbuterol HCl 1.25 MG/3 ML Neb NEB SCH (19:29)
[2020-11-20] MEDS: Atropine 1% Ophth Soln 5 ML BOTTLE SL PRN ×2 (19:44→23:28)
[2020-11-20] MEDS ORDERED: Furosemide 20 MG/2 ML VIAL IVPUSH ONE ×2 (22:43→23:15)
[2020-11-21] MEDS: Levalbuterol HCl 1.25 MG/3 ML Neb NEB SCH ×4 (02:09→19:12)
[2020-11-21] MEDS: Atropine 1% Ophth Soln 5 ML BOTTLE SL PRN ×6 (02:09→22:42)
[2020-11-21] MEDS: cefTRIAXone 1 GM in Sodium Chloride 0.9% 100 ML IV SCH ×2 (07:32→19:12)
[2020-11-21] MEDS: Enoxaparin 30 MG/0.3 ML Syringe SUBCUT SCH (07:36)
[2020-11-21 08:38] LABS: ANION GAP 9.4 meq/L (7-15)
[2020-11-21] MEDS: Sodium Chloride 0.9% 10 ML Syringe FLUSH PRN ×2 (09:38→19:20)
[2020-11-21] MEDS ORDERED: VANCOmycin 1.5 GM/300 ML 1.5 GM in Premix Bag 1 BAG IV SCH (10:00)
--- NOTE | 2020-11-21 11:28 | PCM.PN ---
- General Info Date of Service: 11/21/20 Admission Dx/Problem (Free Text): Patient is nonverbal but he is more alert this morning with his eyes open and will blink when asked some questions such as does he hurt anywhere or does he feel better. Patient did okay through the night intermittent fever. Was given Tylenol and aspirin rectally still continued with supportive care IV fluids antibiotics. He was given Xopenex nebulized treatments and Lasix IV last night with good diuresis and improvement in lung sounds. Patient was admitted secondary to sepsis, bacteremia Nursing notes were reviewed from the night. Functional Status: Reports: Pain Controlled - Review of Systems General: Reports: No Symptoms, Fever HEENT: Reports: No Symptoms Pulmonary: Reports: Shortness of Breath Cardiovascular: Reports: No Symptoms Gastrointestinal: Reports: No Symptoms Genitourinary: Reports: No Symptoms Musculoskeletal: Reports: No Symptoms Skin: Reports: No Symptoms Neurological: Reports: No Symptoms Psychiatric: Reports: No Symptoms. Denies: Agitation - Patient Data Vitals - Most Recent: Last Vital Signs Temp 37.3 C 11/21/20 07:32 Pulse 98 11/21/20 07:32 Resp 16 11/21/20 07:32 BP 103/62 11/21/20 07:32 Pulse Ox 100 11/21/20 07:32 Weight - Most Recent: 67.132 kg I&O - Last 24 Hours: Intake & Output 11/20/20 11/21/20 11/21/20 22:59 06:59 14:59 Intake Total 584 Output Total 850 Balance -266 Lab Results Last 24 Hours: Laboratory Results - last 24 hr 11/20/20 11/21/20 11/21/20 Range/Units 11:39 07:14 07:14 WBC 24.3 H (4.0-10.2) K/uL RBC 4.23 L (4.33-5.41) M/uL Hgb 11.9 L D (13.1-16.8) g/dL Hct 35.3 L (39.0-49.0) % MCV 83.5 L (84.0-98.0) fL MCH 28.1 L (28.2-33.3) pg MCHC 33.7 (31.7-36.0) g/dL RDW 16.4 H (11.2-14.1) % Plt Count 156 D (150-350) K/uL Neut % (Auto) 94.3 H (45.0-80.0) % Lymph % (Auto) 3.7 L (10.0-50.0) % Bath % (Auto) 1.8 L (2.0-14.0) % Eos % (Auto) 0.0 (0.0-5.0) % Baso % (Auto) 0.2 (0.0-2.0) % Neut # (Auto) 22.94 H (1.40-7.00) K/uL Lymph # (Auto) 0.89 (0.50-3.50) K/uL Bath # (Auto) 0.45 (0.00-1.00) K/uL Eos # (Auto) 0.01 (0.00-0.50) K/uL Baso # (Auto) 0.04 (0.00-0.20) K/uL INR 1.3 Sodium 147 H (136-145) mmol/L Potassium 3.8 (3.5-5.1) mmol/L Chloride 115 H (98-107) mmol/L Carbon Dioxide 26.4 (21.0-32.0) mmol/L Anion Gap 9.4 (7-15) meq/L BUN 27 H (7-18) mg/dL Creatinine 1.40 H (0.51-1.17) mg/dL Est Cr Clr Drug Dosing 46.04 mL/min Estimated GFR (MDRD) 53 mL/min Glucose 99 (70-99) mg/dL Calcium 8.1 L (8.5-10.1) mg/dL Miles Results Last 24 Hours: Microbiology 11/20/20 07:25 Aerobic Blood Culture - Preliminary Blood - Venous - Lab Draw Gram Negative Rods Gram Positive Cocci Anaerobic Blood Culture - Preliminary 11/20/20 07:15 Aerobic Blood Culture - Preliminary Blood - Venous Gram Positive Cocci In Chains Anaerobic Blood Culture - Preliminary Gram Negative Rods Med Orders - Current: Current Medications Acetaminophen (Acetaminophen 650 Mg Supp) 650 mg RECTAL Q4H PRN PRN Reason: analgesia/fever Last Admin: 11/20/20 23:28 Dose: 650 mg Documented by: Aspirin (Aspirin 300 Mg Supp) 300 mg RECTAL Q4H PRN PRN Reason: Fever Last Admin: 11/20/20 19:34 Dose: 300 mg Documented by: Atropine Sulfate (Atropine 1% Ophth Soln 5 Ml Bottle) 0 ml SL Q2H PRN PRN Reason: secretions Last Admin: 11/21/20 09:34 Dose: 5 ml Documented by: Enoxaparin Sodium (Enoxaparin 30 Mg/0.3 Ml Syringe) 30 mg SUBCUT DAILY [facility] Last Admin: 11/21/20 07:36 Dose: 30 mg Documented by: Ceftriaxone Sodium 1 gm/ (Sodium Chloride) 100 mls @ 200 mls/hr IV Q12H [facility] Last Admin: 11/21/20 07:32 Dose: 200 mls/hr Documented by: Levofloxacin/Dextrose 750 mg/ (Premix) 150 mls @ 100 mls/hr IV Q48H [facility] Sodium Chloride (Normal Saline) 1,000 mls @ 50 mls/hr IV ASDIRECTED [facility] Last Admin: 11/20/20 23:24 Dose: 50 mls/hr Documented by: Vancomycin HCl 1 gm/ Sodium (Chloride) 250 mls @ 165 mls/hr IV Q24H [facility] Last Admin: 11/21/20 09:35 Dose: 165 mls/hr Documented by: Levalbuterol HCl (Levalbuterol Hcl 1.25 Mg/3 Ml Neb) 1.25 mg NEB Q6HRRT [facility] Last Admin: 11/21/20 07:34 Dose: 1.25 mg Documented by: Sodium Chloride (Sodium Chloride 0.9% 10 Ml Syringe) 10 ml FLUSH ASDIRECTED PRN PRN Reason: IV Use Last Admin: 11/21/20 09:38 Dose: 10 ml Documented by: Vancomycin HCl (Pharmacy To Dose - Vancomycin) 1 dose .XX ASDIRECTED [facility] Discontinued Medications Acetaminophen (Acetaminophen 650 Mg Supp) 650 mg RECTAL NOW ONE Stop: 11/20/20 07:00 Last Admin: 11/20/20 07:04 Dose: 650 mg Documented by: Albuterol/Ipratropium (Albuterol/Ipratropium 3.0-0.5 Mg/3 Ml Neb Soln) 3 ml NEB ONETIME ONE Stop: 11/20/20 15:41 Last Admin: 11/20/20 15:47 Dose: 3 ml Documented by: Furosemide (Furosemide 20 Mg/2 Ml Vial) 20 mg IVPUSH ONETIME ONE Stop: 11/20/20 23:16 Last Admin: 11/20/20 23:27 Dose: 10 mg Documented by: Ceftriaxone Sodium 1 gm/ (Sodium Chloride) 100 mls @ 200 mls/hr IV Q24H [facility] Last Admin: 11/20/20 08:30 Dose: 200 mls/hr Documented by: Sodium Chloride (Normal Saline) 1,000 mls @ 999 mls/hr IV .BOLUS ONE Stop: 11/20/20 09:46 Last Admin: 11/20/20 08:47 Dose: 999 mls/hr Documented by: Levofloxacin/Dextrose 750 mg/ (Premix) 150 mls @ 100 mls/hr IV ONETIME ONE Stop: 11/20/20 10:20 Last Admin: 11/20/20 09:20 Dose: 100 mls/hr Documented by: Vancomycin HCl 1.5 gm/ Premix 300 mls @ 200 mls/hr IV ONETIME ONE Stop: 11/20/20 10:20 Last Admin: 11/20/20 09:16 Dose: 200 mls/hr Documented by: - Exam Quality Assessment: Supplemental Oxygen General: Alert, Other (Again patient appears more alert awake today responsive looks better today than he did yesterday prior to admission) HEENT: Pupils Equal, Pupils Reactive, Mucous Membr. Moist/[place] Neck: Supple Lungs: Normal Respiratory Effort, Rhonchi, Other (Still some scattered rhonchi no rales noted lung sounds have improved since yesterday). No: Clear to Auscultation GI/Abdominal Exam: Normal Bowel Sounds, Soft, Non-Tender, No Organomegaly, No Distention, Other (No grimace of pain elicited with palpation of the abdomen). No: Guarding, Rigid, Rebound, Tender Extremities: Normal Inspection, Non-Tender, No Pedal Edema, Normal Capillary Refill, Other (No tenderness palpation noted with grimace across the extremities positive dorsalis pedis posterior tibialis bilateral lower extremities no edema noted). No: Normal Range of Motion Skin: Warm, Dry, Intact Psy/Mental Status: Alert - Patient Data Lab Results Last 24 hrs: Laboratory Results - last 24 hr 11/20/20 11/21/20 11/21/20 Range/Units 11:39 07:14 07:14 WBC 24.3 H (4.0-10.2) K/uL RBC 4.23 L (4.33-5.41) M/uL Hgb 11.9 L D (13.1-16.8) g/dL Hct 35.3 L (39.0-49.0) % MCV 83.5 L (84.0-98.0) fL MCH 28.1 L (28.2-33.3) pg MCHC 33.7 (31.7-36.0) g/dL RDW 16.4 H (11.2-14.1) % Plt Count 156 D (150-350) K/uL Neut % (Auto) 94.3 H (45.0-80.0) % Lymph % (Auto) 3.7 L (10.0-50.0) % Bath % (Auto) 1.8 L (2.0-14.0) % Eos % (Auto) 0.0 (0.0-5.0) % Baso % (Auto) 0.2 (0.0-2.0) % Neut # (Auto) 22.94 H (1.40-7.00) K/uL Lymph # (Auto) 0.89 (0.50-3.50) K/uL Bath # (Auto) 0.45 (0.00-1.00) K/uL Eos # (Auto) 0.01 (0.00-0.50) K/uL Baso # (Auto) 0.04 (0.00-0.20) K/uL INR 1.3 Sodium 147 H (136-145) mmol/L Potassium 3.8 (3.5-5.1) mmol/L Chloride 115 H (98-107) mmol/L Carbon Dioxide 26.4 (21.0-32.0) mmol/L Anion Gap 9.4 (7-15) meq/L BUN 27 H (7-18) mg/dL Creatinine 1.40 H (0.51-1.17) mg/dL Est Cr Clr Drug Dosing 46.04 mL/min Estimated GFR (MDRD) 53 mL/min Glucose 99 (70-99) mg/dL Calcium 8.1 L (8.5-10.1) mg/dL Result Diagrams: 11/21/20 07:14 11/21/20 07:14 Miles Results Last 24 hrs: Microbiology 11/20/20 07:25 Aerobic Blood Culture - Preliminary Blood - Venous - Lab Draw Gram Negative Rods Gram Positive Cocci Anaerobic Blood Culture - Preliminary 11/20/20 07:15 Aerobic Blood Culture - Preliminary Blood - Venous Gram Positive Cocci In Chains Anaerobic Blood Culture - Preliminary Gram Negative Rods Sepsis Event Note - Evaluation Sepsis Screening Result: Sepsis Risk Current Stage of Sepsis: Sepsis Possible Source of Sepsis: Genitourinary - Focused Exam Sepsis Event Note Statement: Focused Sepsis Exam Completed Vital Signs: Vital Signs Temp Temp Temp Pulse Resp BP Pulse Ox 11/21/20 07:32 37.3 C 98 16 103/62 100 11/21/20 04:00 36.3 C 102 H 24 H 92/61 97 11/21/20 00:50 37.3 C 92/62 11/20/20 23:28 37.3 C Respiratory Effort Without Exertion: Other (see below) (no resp distress) Heart Sounds: Other (see below) (RRR) Capillary Refill, Detail: Greater than (>) 2 Seconds Pulse Description: 2+ Normal Peripheral Pulse Location: Posterior Tibial Skin Exam (Focused Sepsis): Normal Turgor Date Exam was Performed: 11/21/20 Time Exam was Performed: 10:00 - Problem List & Annotations (1) Bacteremia SNOMED Code(s): 2419752 Code(s): R78.81 - BACTEREMIA Status: Acute Current Visit: Yes (2) Dehydration SNOMED Code(s): 77394814 Code(s): E86.0 - DEHYDRATION Status: Acute Current Visit: Yes (3) Sepsis associated hypotension SNOMED Code(s): 92270788 Code(s): A41.9 - SEPSIS, UNSPECIFIED ORGANISM; I95.9 - HYPOTENSION, UNSPECIFIED Status: Acute Current Visit: Yes (4) Acute renal insufficiency SNOMED Code(s): 301304567 Code(s): N28.9 - DISORDER OF KIDNEY AND URETER, UNSPECIFIED Status: Acute Current Visit: Yes - Problem List Review Problem List Initiated/Reviewed/Updated: Yes - My Orders Last 24 Hours: My Active Orders 11/20/20 11:18 Admission Status [Patient Status] [ADT] Routine 11/20/20 11:23 Patient Status [ADT] Routine Up to Chair [RC] ASDIRECTED Vital Signs [RC] Q4HR Acetaminophen [Tylenol] 650 mg RECTAL Q4H PRN DVT/VTE Prophylaxis Reflex [OM.PC] Routine Resuscitation Status Routine 11/20/20 11:25 Oxygen Therapy [RC] 2300 Pulse Oximetry [RC] .PRN 11/20/20 11:26 Antiembolic Devices [RC] 08,20 VTE/DVT Education [RC] .PRN 11/20/20 11:30 Enoxaparin [Lovenox] 30 mg SUBCUT DAILY 11/20/20 11:45 Pharmacy to Dose - Vancomycin 1 dose .XX ASDIRECTED 11/20/20 12:30 Sodium Chloride 0.9% [Normal Saline] 1,000 ml IV ASDIRECTED 11/20/20 15:41 RT Aerosol Therapy [RC] 02,08,14,20 11/20/20 Dinner Nothing per Oral Now Diet [DIET] 11/20/20 18:42 RT Aerosol Therapy [RC] ASDIRECTED Aspirin 300 mg RECTAL Q4H PRN 11/20/20 18:43 Comfort Measures [OM.PC] Routine 11/20/20 18:53 Atropine 1% [Atropine 1% Ophth Soln] 0 ml SL Q2H PRN 11/20/20 20:00 cefTRIAXone [Rocephin] 1 gm Sodium Chloride 0.9% [Normal Saline] 100 ml IV Q12H levalbuterol HCL [Xopenex] 1.25 mg NEB Q6HRRT 11/21/20 07:37 Sodium Chloride 0.9% [Saline Flush] 10 ml FLUSH ASDIRECTED PRN 11/21/20 10:00 Vancomycin 1 gm Sodium Chloride 0.9% [Normal Saline] 250 ml IV Q24H 11/22/20 09:00 Levofloxacin/Dextrose 5%-Water [Levaquin in D5W 750 MG/150 ML] 750 mg Premix Bag 1 bag IV Q48H 11/22/20 09:30 VANCOMYCIN TROUGH [CHEM] Routine - Assessment Assessment:: Assessment #1 sepsis #2 bacteremia #3 acute renal insufficiency #4 dehydration #5 Down syndrome - Plan Plan:: Blood cultures revealed gram-positive cocci gram-negative rods Lab work this morning white count is down to 24,000 from 27.7 thousand BUN and creatinine has decreased 27/1.4 was 30/1.75 Patient shown improvement through the night he is more alert this morning decreased oxygenation said he is still on nasal cannula blood pressure is normalized. We'll continue IV antibiotic therapy Rocephin 1 g every 12 hours Levaquin per renal dosing per pharmacy every 24 vancomycin per renal dosing per pharmacy every 12 hours We'll continue IV hydration at 75 mL's per hour We will continue Lovenox 30 mg subcu daily for DVT prophylaxis We'll continue the use of Tylenol/aspirin as needed for fever and comfort Today we will try p.o. with the patient starting with popsicles increase and possibly to a liquid diet if he is not willing or able to accept we will switch possibly to D5 half-normal saline Labs to be checked in a.m. CBC BMP chest x-ray I believe the patient will still need to be kept for admission for the next 72 hours for IV therapy antibiotics secondary to sepsis
[2020-11-21] MEDS: Acetaminophen 650 MG Supp RECTAL PRN ×2 (12:43→23:30)
[2020-11-21] MEDS: Sodium Chloride 0.9% 1,000 ML IV SCH (21:49)
[2020-11-22] MEDS ORDERED: Furosemide 20 MG/2 ML VIAL IVPUSH ONE (00:02)
[2020-11-22] MEDS: Sodium Chloride 0.9% 10 ML Syringe FLUSH PRN (00:17)
[2020-11-22] MEDS: Sodium Chloride 0.9% 1,000 ML IV SCH ×2 (00:19→15:17)
[2020-11-22] MEDS: Atropine 1% Ophth Soln 5 ML BOTTLE SL PRN ×6 (01:57→23:05)
[2020-11-22] MEDS: Levalbuterol HCl 1.25 MG/3 ML Neb NEB SCH ×4 (01:57→20:24)
[2020-11-22] MEDS: Enoxaparin 30 MG/0.3 ML Syringe SUBCUT SCH (07:58)
--- NOTE | 2020-11-22 07:58 | PCM.PN ---
- General Info Date of Service: 11/22/20 Admission Dx/Problem (Free Text): Patient is nonverbal but he is more alert this morning with his eyes open and will blink when asked some questions such as does he hurt anywhere or does he feel better. Patient did okay through the night intermittent fever. Was given Tylenol and aspirin rectally still continued with supportive care IV fluids antibiotics. He was given Xopenex nebulized treatments and Lasix IV last night with good diuresis and improvement in lung sounds. Patient was admitted secondary to sepsis, bacteremia Nursing notes were reviewed from the night. Subjective Update: Patient still nonverbal but is improved secondary from fluids and antibiotics he is alert moving his head he will actually blink his eyes when asked some questions. He is smiling this morning and appears to be better overall. Yesterday he did take a trial of p.o. with popsicles and had to be did not want anything else and actually pushed away somewhat when approached with other p.o. Vital signs remained stable through the night. Lab work within normal limits chest x-ray shows mild CHF but no acute findings Patient is to remain on antibiotic treatment for the next 24 hours vancomycin dosed per pharmacy Levaquin dose per pharmacy Rocephin 1 g IV. Functional Status: Reports: Pain Controlled - Review of Systems General: Reports: No Symptoms, Other (Unable to obtain full HPI secondary to patient is nonverbal see H&P) Pulmonary: Denies: Cough Cardiovascular: Denies: Edema Gastrointestinal: Denies: Diarrhea, Vomiting Skin: Denies: Cyanosis, Bruising, Rash - Patient Data Vitals - Most Recent: Last Vital Signs Temp 36.9 C 11/22/20 04:00 Pulse 93 11/22/20 04:00 Resp 18 11/22/20 04:00 BP 99/68 11/22/20 04:00 Pulse Ox 99 11/22/20 04:00 Weight - Most Recent: 76.43 kg I&O - Last 24 Hours: Intake & Output 11/21/20 11/22/20 11/22/20 22:59 06:59 14:59 Intake Total 886 859 Output Total 275 1800 Balance 611 -941 Lab Results Last 24 Hours: Laboratory Results - last 24 hr 11/21/20 Range/Units 07:14 Sodium 147 H (136-145) mmol/L Potassium 3.8 (3.5-5.1) mmol/L Chloride 115 H (98-107) mmol/L Carbon Dioxide 26.4 (21.0-32.0) mmol/L Anion Gap 9.4 (7-15) meq/L BUN 27 H (7-18) mg/dL Creatinine 1.40 H (0.51-1.17) mg/dL Est Cr Clr Drug Dosing 46.04 mL/min Estimated GFR (MDRD) 53 mL/min Glucose 99 (70-99) mg/dL Calcium 8.1 L (8.5-10.1) mg/dL Miles Results Last 24 Hours: Microbiology 11/20/20 07:15 Aerobic Blood Culture - Preliminary Blood - Venous Gram Positive Cocci In Chains Anaerobic Blood Culture - Preliminary Gram Negative Rods 11/20/20 08:50 Urine Culture - Preliminary Urine, Catheterized Gram Negative Rods Gram Negative Rods#2 11/20/20 07:25 Aerobic Blood Culture - Preliminary Blood - Venous - Lab Draw Gram Negative Rods Gram Positive Cocci Anaerobic Blood Culture - Preliminary Med Orders - Current: Current Medications Acetaminophen (Acetaminophen 650 Mg Supp) 650 mg RECTAL Q4H PRN PRN Reason: analgesia/fever Last Admin: 11/21/20 23:30 Dose: 650 mg Documented by: Aspirin (Aspirin 300 Mg Supp) 300 mg RECTAL Q4H PRN PRN Reason: Fever Last Admin: 11/20/20 19:34 Dose: 300 mg Documented by: Atropine Sulfate (Atropine 1% Ophth Soln 5 Ml Bottle) 0 ml SL Q2H PRN PRN Reason: secretions Last Admin: 11/22/20 01:57 Dose: 5 ml Documented by: Enoxaparin Sodium (Enoxaparin 30 Mg/0.3 Ml Syringe) 30 mg SUBCUT DAILY [facility] Last Admin: 11/21/20 07:36 Dose: 30 mg Documented by: Ceftriaxone Sodium 1 gm/ (Sodium Chloride) 100 mls @ 200 mls/hr IV Q12H [facility] Last Admin: 11/21/20 19:12 Dose: 200 mls/hr Documented by: Levofloxacin/Dextrose 750 mg/ (Premix) 150 mls @ 100 mls/hr IV Q48H [facility] Vancomycin HCl 1 gm/ Sodium (Chloride) 250 mls @ 165 mls/hr IV Q24H [facility] Last Admin: 11/21/20 09:35 Dose: 165 mls/hr Documented by: Sodium Chloride (Normal Saline) 1,000 mls @ 75 mls/hr IV ASDIRECTED [facility] Last Admin: 11/22/20 00:19 Dose: 75 mls/hr Documented by: Levalbuterol HCl (Levalbuterol Hcl 1.25 Mg/3 Ml Neb) 1.25 mg NEB Q6HRRT [facility] Last Admin: 11/22/20 01:57 Dose: 1.25 mg Documented by: Sodium Chloride (Sodium Chloride 0.9% 10 Ml Syringe) 10 ml FLUSH ASDIRECTED PRN PRN Reason: IV Use Last Admin: 11/22/20 00:17 Dose: 10 ml Documented by: Vancomycin HCl (Pharmacy To Dose - Vancomycin) 1 dose .XX ASDIRECTED [facility] Discontinued Medications Acetaminophen (Acetaminophen 650 Mg Supp) 650 mg RECTAL NOW ONE Stop: 11/20/20 07:00 Last Admin: 11/20/20 07:04 Dose: 650 mg Documented by: Albuterol/Ipratropium (Albuterol/Ipratropium 3.0-0.5 Mg/3 Ml Neb Soln) 3 ml NEB ONETIME ONE Stop: 11/20/20 15:41 Last Admin: 11/20/20 15:47 Dose: 3 ml Documented by: Furosemide (Furosemide 20 Mg/2 Ml Vial) 20 mg IVPUSH ONETIME ONE Stop: 11/20/20 23:16 Last Admin: 11/20/20 23:27 Dose: 10 mg Documented by: Furosemide (Furosemide 20 Mg/2 Ml Vial) 20 mg IVPUSH ONETIME ONE Stop: 11/22/20 00:03 Last Admin: 11/22/20 00:17 Dose: 20 mg Documented by: Ceftriaxone Sodium 1 gm/ (Sodium Chloride) 100 mls @ 200 mls/hr IV Q24H [facility] Last Admin: 11/20/20 08:30 Dose: 200 mls/hr Documented by: Sodium Chloride (Normal Saline) 1,000 mls @ 999 mls/hr IV .BOLUS ONE Stop: 11/20/20 09:46 Last Admin: 11/20/20 08:47 Dose: 999 mls/hr Documented by: Levofloxacin/Dextrose 750 mg/ (Premix) 150 mls @ 100 mls/hr IV ONETIME ONE Stop: 11/20/20 10:20 Last Admin: 11/20/20 09:20 Dose: 100 mls/hr Documented by: Vancomycin HCl 1.5 gm/ Premix 300 mls @ 200 mls/hr IV ONETIME ONE Stop: 11/20/20 10:20 Last Admin: 11/20/20 09:16 Dose: 200 mls/hr Documented by: Sodium Chloride (Normal Saline) 1,000 mls @ 50 mls/hr IV ASDIRECTED [facility] Last Admin: 11/21/20 21:49 Dose: 50 mls/hr Documented by: - Exam Quality Assessment: Supplemental Oxygen General: Alert HEENT: Pupils Equal, Pupils Reactive, Mucous Membr. Moist/[place] Neck: Supple Lungs: Normal Respiratory Effort, Rhonchi, Other (Scattered rhonchi noted but is improved from yesterday's visit). No: Clear to Auscultation Cardiovascular: Regular Rate, Regular Rhythm GI/Abdominal Exam: Normal Bowel Sounds, Soft, Non-Tender, No Organomegaly, No Distention, Other (There is no noted pain elicited with palpation no grimace noted). No: Guarding, Rigid, Rebound, Tender Extremities: Normal Inspection, Normal Range of Motion, Non-Tender, No Pedal Edema, Normal Capillary Refill Skin: Warm, Dry, Intact Psy/Mental Status: Alert, Normal Affect, Normal Mood - Patient Data Lab Results Last 24 hrs: Laboratory Results - last 24 hr 11/21/20 Range/Units 07:14 Sodium 147 H (136-145) mmol/L Potassium 3.8 (3.5-5.1) mmol/L Chloride 115 H (98-107) mmol/L Carbon Dioxide 26.4 (21.0-32.0) mmol/L Anion Gap 9.4 (7-15) meq/L BUN 27 H (7-18) mg/dL Creatinine 1.40 H (0.51-1.17) mg/dL Est Cr Clr Drug Dosing 46.04 mL/min Estimated GFR (MDRD) 53 mL/min Glucose 99 (70-99) mg/dL Calcium 8.1 L (8.5-10.1) mg/dL Result Diagrams: 11/21/20 07:14 11/21/20 07:14 Miles Results Last 24 hrs: Microbiology 11/20/20 07:15 Aerobic Blood Culture - Preliminary Blood - Venous Gram Positive Cocci In Chains Anaerobic Blood Culture - Preliminary Gram Negative Rods 11/20/20 08:50 Urine Culture - Preliminary Urine, Catheterized Gram Negative Rods Gram Negative Rods#2 11/20/20 07:25 Aerobic Blood Culture - Preliminary Blood - Venous - Lab Draw Gram Negative Rods Gram Positive Cocci Anaerobic Blood Culture - Preliminary Sepsis Event Note - Evaluation Sepsis Screening Result: Sepsis Risk Current Stage of Sepsis: Sepsis Possible Source of Sepsis: Genitourinary - Focused Exam Sepsis Event Note Statement: Focused Sepsis Exam Completed Vital Signs: Vital Signs Temp Temp Pulse Resp BP Pulse Ox 11/22/20 04:00 36.9 C 93 18 99/68 99 11/22/20 00:00 37.6 C 11/21/20 23:30 37.4 C 11/21/20 23:25 37.4 C 100 20 105/70 100 Respiratory Effort Without Exertion: Other (see below) (normal) Pulse Description: 2+ Normal Peripheral Pulse Location: Posterior Tibial Skin Exam (Focused Sepsis): Normal Turgor Date Exam was Performed: 11/22/20 Time Exam was Performed: 07:10 - Bedside Monitoring Fluid Bolus Goal: NA - Problem List & Annotations (1) Bacteremia SNOMED Code(s): 7704616 Code(s): R78.81 - BACTEREMIA Status: Acute Priority: Medium Current Visit: Yes (2) Dehydration SNOMED Code(s): 08673614 Code(s): E86.0 - DEHYDRATION Status: Acute Priority: Medium Current Visit: Yes (3) Sepsis associated hypotension SNOMED Code(s): 48674938 Code(s): A41.9 - SEPSIS, UNSPECIFIED ORGANISM; I95.9 - HYPOTENSION, UNSPE CIFIED Status: Acute Priority: Medium Current Visit: Yes (4) Acute renal insufficiency SNOMED Code(s): 747017494 Code(s): N28.9 - DISORDER OF KIDNEY AND URETER, UNSPECIFIED Status: Acute Priority: Medium Current Visit: Yes - Problem List Review Problem List Initiated/Reviewed/Updated: Yes - My Orders Last 24 Hours: My Active Orders 11/21/20 07:37 Sodium Chloride 0.9% [Saline Flush] 10 ml FLUSH ASDIRECTED PRN 11/21/20 10:00 Vancomycin 1 gm Sodium Chloride 0.9% [Normal Saline] 250 ml IV Q24H 11/21/20 Dinner Clear Liquid Diet [DIET] 11/22/20 00:09 Sodium Chloride 0.9% [Normal Saline] 1,000 ml IV ASDIRECTED 11/22/20 05:11 BASIC METABOLIC PANEL,BMP [CHEM] Routine CBC WITH AUTO DIFF [HEME] Routine 11/22/20 08:00 Chest 1V Frontal [CR] Routine 11/22/20 09:00 Levofloxacin/Dextrose 5%-Water [Levaquin in D5W 750 MG/150 ML] 750 mg Premix Bag 1 bag IV Q48H 11/22/20 09:30 VANCOMYCIN TROUGH [CHEM] Routine - Assessment Assessment:: Assessment #1 sepsis #2 bacteremia #3 acute renal insufficiency #4 dehydration #5 Down syndrome - Plan Plan:: Blood cultures revealed gram-positive cocci gram-negative rods Lab work this morning white count is down to 24,000 from 27.7 thousand BUN and creatinine has decreased 27/1.4 was 30/.75 Patient shown improvement through the night he is more alert this morning decreased oxygenation said he is still on nasal cannula blood pressure is n ormalized. We'll continue IV antibiotic therapy Rocephin 1 g every 12 hours Levaquin per renal dosing per pharmacy every 24 vancomycin per renal dosing per pharmacy every 12 hours We'll continue IV hydration at 75 mL's per hour We will continue Lovenox 30 mg subcu daily for DVT prophylaxis We'll continue the use of Tylenol/aspirin as needed for fever and comfort Today we will try p.o. with the patient starting with popsicles increase and possibly to a liquid diet if he is not willing or able to accept we will switch possibly to D5 half-normal saline Labs to be checked in a.m. CBC BMP chest x-ray I believe the patient will still need to be kept for admission for the next 72 hours for IV therapy antibiotics secondary to sepsis 11/22/2020. Plan for today is to continue IV antibiotics with vancomycin per pharmacy dose per renal protocol Levaquin per pharmacy per renal protocol Rocephin 1 g IV continue IV fluid hydration at 75 mL's per hour may change to D5 half pending patient's condition by mid day after encouraged to take p.o. Patient will be set up to chair today Continue supportive measures only respiratory such as breathing treatments p.o. atropine We will continue Lovenox 30 mg subcu daily for DVT prophylaxis Pending the patient taking p.o. today we will transition to Levaquin 750 p.o. starting tomorrow Plan is to discharge back to intermediate with possible tomorrow if there is no more signs or symptoms of sepsis returning normal vital signs normal lab work and pending signs of patient's condition.
[2020-11-22] MEDS: cefTRIAXone 1 GM in Sodium Chloride 0.9% 100 ML IV SCH ×2 (07:59→20:24)
[2020-11-22] MEDS ORDERED: Levofloxacin/Dextrose 5%-Water 750 MG in Premix Bag 1 BAG IV SCH (09:00)
[2020-11-22 09:50] LABS: CHLORIDE,CL 114 mmol/L (98-107); SODIUM,NA 150 mmol/L (136-145)
[2020-11-22 10:05] LABS: ANION GAP 11.1 meq/L (7-15)
--- NOTE | 2020-11-22 10:44 | PCM.SN.2 ---
- Free Text/Narrative Note: Care taken over at change of shift. Patient has 3/3 positive blood cultures, indwelling catheter probably colonized Laboratory Results - last 24 hr 11/22/20 11/22/20 11/22/20 Range/Units 09:24 09:24 09:24 WBC 16.0 H (4.0-10.2) K/uL RBC 4.40 (4.33-5.41) M/uL Hgb 12.4 L (13.1-16.8) g/dL Hct 36.5 L (39.0-49.0) % MCV 83.0 L (84.0-98.0) fL MCH 28.2 (28.2-33.3) pg MCHC 34.0 (31.7-36.0) g/dL RDW 16.1 H (11.2-14.1) % Plt Count 186 (150-350) K/uL Neut % (Auto) 85.2 H (45.0-80.0) % Lymph % (Auto) 8.5 L (10.0-50.0) % [place] % (Auto) 5.8 (2.0-14.0) % Eos % (Auto) 0.3 (0.0-5.0) % Baso % (Auto) 0.2 (0.0-2.0) % Neut # (Auto) 13.59 H (1.40-7.00) K/uL Lymph # (Auto) 1.36 (0.50-3.50) K/uL [place] # (Auto) 0.93 (0.00-1.00) K/uL Eos # (Auto) 0.04 (0.00-0.50) K/uL Baso # (Auto) 0.03 (0.00-0.20) K/uL Sodium 150 H (136-145) mmol/L Potassium 3.3 L (3.5-5.1) mmol/L Chloride 114 H (98-107) mmol/L Carbon Dioxide 28.2 (21.0-32.0) mmol/L Anion Gap 11.1 (7-15) meq/L BUN 20 H (7-18) mg/dL Creatinine 1.12 (0.51-1.17) mg/dL Est Cr Clr Drug Dosing 57.55 mL/min Estimated GFR (MDRD) > 60 mL/min Glucose 100 H (70-99) mg/dL Calcium 8.6 (8.5-10.1) mg/dL Vancomycin Trough 8.7 L (10-20) ug/mL . Not taking PO medications or food well. Concern for failure with oral antibiotics and need for continued IV antibiotics over the weekend. Will advise the [facility] on this. Continue IV antibiotics. Vital Signs Temp 36.9 C 11/22/20 08:00 Pulse 98 11/22/20 08:00 Resp 14 11/22/20 08:00 BP 108/60 11/22/20 08:00 Pulse Ox 98 11/22/20 08:00 Intake & Output 11/21/20 11/22/20 11/22/20 22:59 06:59 14:59 Intake Total 886 859 Output Total 275 1800 Balance 611 -941 Intake: Intake, Oral Amount 100 Oral Fluids 100 Intake, IV Amount 886 759 Normal Saline 1,000 ML @ 536 50 mls/hr IV ASDIRECTED [facility] Rx#:[id number] Normal Saline 1,000 ML @ 664 75 mls/hr IV ASDIRECTED [facility] Rx#:[id number] Rocephin 1 GM In Normal 100 95 Saline 100 ML @ 200 mls/ hr IV Q12H [facility] Rx#: [id number] Vancomycin 1 GM In Normal 250 Saline 250 ML @ 165 mls/ hr IV Q24H [facility] Rx#: [id number] Output: Output, Catheter Amount 275 1800 [place] 275 1800 Other: Breakfast Percent 5 Consumed Dinner Percent Consumed 5 Total, Intake Amount 100 Total, Output Amount 275 600 Medications Generic Name Dose Route Start Last Admin Trade Name Freq PRN Reason Stop Dose Admin Acetaminophen 650 mg 11/20/20 11:23 11/21/20 23:30 Acetaminophen 650 Mg Supp RECTAL 650 mg Q4H PRN Administration analgesia/fever Aspirin 300 mg 11/20/20 18:42 11/20/20 19:34 Aspirin 300 Mg Supp RECTAL 300 mg Q4H PRN Administration Fever Atropine Sulfate 0 ml 11/20/20 18:53 11/22/20 10:02 Atropine 1% Ophth Soln 5 Ml Bottle SL 5 ml Q2H PRN Administration secretions Enoxaparin Sodium 30 mg 11/20/20 11:30 11/22/20 07:58 Enoxaparin 30 Mg/0.3 Ml Syringe SUBCUT 30 mg DAILY [facility] Administration Ceftriaxone Sodium 1 gm/ 100 mls @ 200 mls/hr 11/20/20 20:00 11/22/20 07:59 Sodium Chloride IV 200 mls/hr Q12H [facility] Administration Levofloxacin/Dextrose 750 mg/ 150 mls @ 100 mls/hr 11/22/20 09:00 11/22/20 09:41 Premix IV 100 mls/hr Q48H [facility] Administration Vancomycin HCl 1 gm/ Sodium 250 mls @ 165 mls/hr 11/21/20 10:00 11/21/20 09:35 Chloride IV 165 mls/hr Q24H [facility] Administration Sodium Chloride 1,000 mls @ 75 mls/hr 11/22/20 00:09 11/22/20 00:19 Normal Saline IV 75 mls/hr ASDIRECTED [facility] Administration Levalbuterol HCl 1.25 mg 11/20/20 20:00 11/22/20 07:58 Levalbuterol Hcl 1.25 Mg/3 Ml Neb NEB 1.25 mg Q6HRRT [facility] Administration Sodium Chloride 10 ml 11/21/20 07:37 11/22/20 00:17 Sodium Chloride 0.9% 10 Ml Syringe FLUSH 10 ml ASDIRECTED PRN Administration IV Use Vancomycin HCl 1 dose 11/20/20 11:45 Pharmacy To Dose - Vancomycin .XX ASDIRECTED [facility] Discontinued Medications Generic Name Dose Route Start Last Admin Trade Name Freq PRN Reason Stop Dose Admin Acetaminophen 650 mg 11/20/20 06:59 11/20/20 07:04 Acetaminophen 650 Mg Supp RECTAL 11/20/20 07:00 650 mg NOW ONE Administration Albuterol/Ipratropium 3 ml 11/20/20 15:40 11/20/20 15:47 Albuterol/Ipratropium 3.0-0.5 Mg/3 Ml Neb Soln NEB 11/20/20 15:41 3 ml ONETIME ONE Administration Furosemide 20 mg 11/20/20 23:15 11/20/20 23:27 Furosemide 20 Mg/2 Ml Vial IVPUSH 11/20/20 23:16 10 mg ONETIME ONE Administration Furosemide 20 mg 11/22/20 00:02 11/22/20 00:17 Furosemide 20 Mg/2 Ml Vial IVPUSH 11/22/20 00:03 20 mg ONETIME ONE Administration Ceftriaxone Sodium 1 gm/ 100 mls @ 200 mls/hr 11/20/20 08:30 11/20/20 08:30 Sodium Chloride IV 200 mls/hr Q24H [facility] Administration Sodium Chloride 1,000 mls @ 999 mls/hr 11/20/20 08:46 11/20/20 08:47 Normal Saline IV 11/20/20 09:46 999 mls/hr .BOLUS ONE Administration Levofloxacin/Dextrose 750 mg/ 150 mls @ 100 mls/hr 11/20/20 08:51 11/20/20 09:20 Premix IV 11/20/20 10:20 100 mls/hr ONETIME ONE Administration Vancomycin HCl 1.5 gm/ Premix 300 mls @ 200 mls/hr 11/20/20 08:51 11/20/20 09:16 IV 11/20/20 10:20 200 mls/hr ONETIME ONE Administration Sodium Chloride 1,000 mls @ 50 mls/hr 11/20/20 12:30 11/21/20 21:49 Normal Saline IV 50 mls/hr ASDIRECTED [facility] Administration
[2020-11-22] MEDS: Acetaminophen 650 MG Supp RECTAL PRN (19:37)
[2020-11-22] MEDS ORDERED: Furosemide 40 MG/4 ML VIAL IVPUSH ONE (19:52)
[2020-11-22] MEDS ORDERED: D5 1/2 NS w/ 20 mEq/L KCl 1,000 ML IV SCH (20:00)
[2020-11-22] MEDS ORDERED: Albuterol 0.083% 2.5 MG/3 ML Neb Soln NEB ONE (20:02)
--- NOTE | 2020-11-22 20:23 | PCM.PN ---
- General Info Date of Service: 11/22/20 Admission Dx/Problem (Free Text): pneumonia, uti, sepsis Subjective Update: Called by nursing for fever, increased sodium, concern for lack out output and decreased intake. Patient now has temp of 102, tylenol suppository given. Sodium is increasing, output has been down. Limited po intake. lungs congested and wet. Not coughing well. Nonverbal and somnolent. Was on normal saline for the last 2 days. - Review of Systems General: Reports: Fever, Fatigue Pulmonary: Reports: Shortness of Breath, Wheezing - Patient Data Vitals - Most Recent: Last Vital Signs Temp 39.0 C H 11/22/20 19:37 Pulse 105 H 11/22/20 16:00 Resp 28 H 11/22/20 16:00 BP 123/69 11/22/20 16:00 Pulse Ox 93 L 11/22/20 16:00 Weight - Most Recent: 58.967 kg I&O - Last 24 Hours: Intake & Output 11/22/20 11/22/20 11/22/20 06:59 14:59 22:59 Intake Total 859 1193 Output Total 1800 425 Balance -941 768 Imaging Impressions - Last 24 Hours: increased pulmonary congestion Lab Results Last 24 Hours: Laboratory Results - last 24 hr 11/22/20 11/22/20 11/22/20 Range/Units 09:24 09:24 09:24 WBC 16.0 H (4.0-10.2) K/uL RBC 4.40 (4.33-5.41) M/uL Hgb 12.4 L (13.1-16.8) g/dL Hct 36.5 L (39.0-49.0) % MCV 83.0 L (84.0-98.0) fL MCH 28.2 (28.2-33.3) pg MCHC 34.0 (31.7-36.0) g/dL RDW 16.1 H (11.2-14.1) % Plt Count 186 (150-350) K/uL Neut % (Auto) 85.2 H (45.0-80.0) % Lymph % (Auto) 8.5 L (10.0-50.0) % [place] % (Auto) 5.8 (2.0-14.0) % Eos % (Auto) 0.3 (0.0-5.0) % Baso % (Auto) 0.2 (0.0-2.0) % Neut # (Auto) 13.59 H (1.40-7.00) K/uL Lymph # (Auto) 1.36 (0.50-3.50) K/uL [place] # (Auto) 0.93 (0.00-1.00) K/uL Eos # (Auto) 0.04 (0.00-0.50) K/uL Baso # (Auto) 0.03 (0.00-0.20) K/uL Sodium 150 H (136-145) mmol/L Potassium 3.3 L (3.5-5.1) mmol/L Chloride 114 H (98-107) mmol/L Carbon Dioxide 28.2 (21.0-32.0) mmol/L Anion Gap 11.1 (7-15) meq/L BUN 20 H (7-18) mg/dL Creatinine 1.12 (0.51-1.17) mg/dL Est Cr Clr Drug Dosing 57.55 mL/min Estimated GFR (MDRD) > 60 mL/min Glucose 100 H (70-99) mg/dL Calcium 8.6 (8.5-10.1) mg/dL Vancomycin Trough 8.7 L (10-20) ug/mL [place] Results Last 24 Hours: Microbiology 11/20/20 07:15 Aerobic Blood Culture - Final Blood - Venous Streptococcus Parasanguis Anaerobic Blood Culture - Final Escherichia Coli 11/20/20 07:25 Aerobic Blood Culture - Final Blood - Venous - Lab Draw Gram Negative Rods Gram Positive Cocci Anaerobic Blood Culture - Final 11/20/20 08:50 Urine Culture - Final Urine, Catheterized Proteus Mirabilis Escherichia Coli Med Orders - Current: Current Medications Acetaminophen (Acetaminophen 650 Mg Supp) 650 mg RECTAL Q4H PRN PRN Reason: analgesia/fever Last Admin: 11/22/20 19:37 Dose: 650 mg Documented by: Albuterol (Albuterol 0.083% 2.5 Mg/3 Ml Neb Soln) 2.5 mg NEB ONETIME ONE Stop: 11/22/20 20:03 Aspirin (Aspirin 300 Mg Supp) 300 mg RECTAL Q4H PRN PRN Reason: Fever Last Admin: 11/20/20 19:34 Dose: 300 mg Documented by: Atropine Sulfate (Atropine 1% Ophth Soln 5 Ml Bottle) 0 ml SL Q2H PRN PRN Reason: secretions Last Admin: 11/22/20 17:53 Dose: 5 ml Documented by: Enoxaparin Sodium (Enoxaparin 30 Mg/0.3 Ml Syringe) 30 mg SUBCUT DAILY [facility] Last Admin: 11/22/20 07:58 Dose: 30 mg Documented by: Ceftriaxone Sodium 1 gm/ (Sodium Chloride) 100 mls @ 200 mls/hr IV Q12H [facility] Last Admin: 11/22/20 07:59 Dose: 200 mls/hr Documented by: Levofloxacin/Dextrose 750 mg/ (Premix) 150 mls @ 100 mls/hr IV Q48H [facility] Last Admin: 11/22/20 09:41 Dose: 100 mls/hr Documented by: Potassium Chloride/Dextrose/Sod Cl (D5 1/2 Ns W/ 20 Meq/L Kcl) 1,000 mls @ 75 mls/hr IV ASDIRECTED [facility] Levalbuterol HCl (Levalbuterol Hcl 1.25 Mg/3 Ml Neb) 1.25 mg NEB Q6HRRT [facility] Last Admin: 11/22/20 13:57 Dose: 1.25 mg Documented by: Sodium Chloride (Sodium Chloride 0.9% 10 Ml Syringe) 10 ml FLUSH ASDIRECTED PRN PRN Reason: IV Use Last Admin: 11/22/20 00:17 Dose: 10 ml Documented by: Discontinued Medications Acetaminophen (Acetaminophen 650 Mg Supp) 650 mg RECTAL NOW ONE Stop: 11/20/20 07:00 Last Admin: 11/20/20 07:04 Dose: 650 mg Documented by: Albuterol/Ipratropium (Albuterol/Ipratropium 3.0-0.5 Mg/3 Ml Neb Soln) 3 ml NEB ONETIME ONE Stop: 11/20/20 15:41 Last Admin: 11/20/20 15:47 Dose: 3 ml Documented by: Furosemide (Furosemide 20 Mg/2 Ml Vial) 20 mg IVPUSH ONETIME ONE Stop: 11/20/20 23:16 Last Admin: 11/20/20 23:27 Dose: 10 mg Documented by: Furosemide (Furosemide 20 Mg/2 Ml Vial) 20 mg IVPUSH ONETIME ONE Stop: 11/22/20 00:03 Last Admin: 11/22/20 00:17 Dose: 20 mg Documented by: Furosemide (Furosemide 40 Mg/4 Ml Vial) 40 mg IVPUSH NOW ONE Stop: 11/22/20 19:53 Ceftriaxone Sodium 1 gm/ (Sodium Chloride) 100 mls @ 200 mls/hr IV Q24H [facility] Last Admin: 11/20/20 08:30 Dose: 200 mls/hr Documented by: Sodium Chloride (Normal Saline) 1,000 mls @ 999 mls/hr IV .BOLUS ONE Stop: 11/20/20 09:46 Last Admin: 11/20/20 08:47 Dose: 999 mls/hr Documented by: Levofloxacin/Dextrose 750 mg/ (Premix) 150 mls @ 100 mls/hr IV ONETIME ONE Stop: 11/20/20 10:20 Last Admin: 11/20/20 09:20 Dose: 100 mls/hr Documented by: Vancomycin HCl 1.5 gm/ Premix 300 mls @ 200 mls/hr IV ONETIME ONE Stop: 11/20/20 10:20 Last Admin: 11/20/20 09:16 Dose: 200 mls/hr Documented by: Sodium Chloride (Normal Saline) 1,000 mls @ 50 mls/hr IV ASDIRECTED [facility] Last Admin: 11/21/20 21:49 Dose: 50 mls/hr Documented by: Vancomycin HCl 1 gm/ Sodium (Chloride) 250 mls @ 165 mls/hr IV Q24H [facility] Last Admin: 11/22/20 11:32 Dose: 165 mls/hr Documented by: Sodium Chloride (Normal Saline) 1,000 mls @ 75 mls/hr IV ASDIRECTED [facility] Last Admin: 11/22/20 15:17 Dose: 75 mls/hr Documented by: Vancomycin HCl (Pharmacy To Dose - Vancomycin) 1 dose .XX ASDIRECTED [facility] - Exam Quality Assessment: Supplemental Oxygen General: Lethargic Lungs: Decreased Breath Sounds, Crackles Cardiovascular: Tachycardia (current fever) Neurological: No New Focal Deficit - Patient Data Lab Results Last 24 hrs: Laboratory Results - last 24 hr 11/22/20 11/22/20 11/22/20 Range/Units 09:24 09:24 09:24 WBC 16.0 H (4.0-10.2) K/uL RBC 4.40 (4.33-5.41) M/uL Hgb 12.4 L (13.1-16.8) g/dL Hct 36.5 L (39.0-49.0) % MCV 83.0 L (84.0-98.0) fL MCH 28.2 (28.2-33.3) pg MCHC 34.0 (31.7-36.0) g/dL RDW 16.1 H (11.2-14.1) % Plt Count 186 (150-350) K/uL Neut % (Auto) 85.2 H (45.0-80.0) % Lymph % (Auto) 8.5 L (10.0-50.0) % [place] % (Auto) 5.8 (2.0-14.0) % Eos % (Auto) 0.3 (0.0-5.0) % Baso % (Auto) 0.2 (0.0-2.0) % Neut # (Auto) 13.59 H (1.40-7.00) K/uL Lymph # (Auto) 1.36 (0.50-3.50) K/uL [place] # (Auto) 0.93 (0.00-1.00) K/uL Eos # (Auto) 0.04 (0.00-0.50) K/uL Baso # (Auto) 0.03 (0.00-0.20) K/uL Sodium 150 H (136-145) mmol/L Potassium 3.3 L (3.5-5.1) mmol/L Chloride 114 H (98-107) mmol/L Carbon Dioxide 28.2 (21.0-32.0) mmol/L Anion Gap 11.1 (7-15) meq/L BUN 20 H (7-18) mg/dL Creatinine 1.12 (0.51-1.17) mg/dL Est Cr Clr Drug Dosing 57.55 mL/min Estimated GFR (MDRD) > 60 mL/min Glucose 100 H (70-99) mg/dL Calcium 8.6 (8.5-10.1) mg/dL Vancomycin Trough 8.7 L (10-20) ug/mL Result Diagrams: 11/22/20 09:24 11/22/20 09:24 Miles Results Last 24 hrs: Microbiology 11/20/20 07:15 Aerobic Blood Culture - Final Blood - Venous Streptococcus Parasanguis Anaerobic Blood Culture - Final Escherichia Coli 11/20/20 07:25 Aerobic Blood Culture - Final Blood - Venous - Lab Draw Gram Negative Rods Gram Positive Cocci Anaerobic Blood Culture - Final 11/20/20 08:50 Urine Culture - Final Urine, Catheterized Proteus Mirabilis Escherichia Coli Sepsis Event Note - Evaluation Sepsis Screening Result: Sepsis Risk - Focused Exam Vital Signs: Vital Signs Temp Temp Pulse Resp BP Pulse Ox 11/22/20 19:37 39.0 C H 11/22/20 16:00 37.4 C 105 H 28 H 123/69 93 L 11/22/20 12:00 36.9 C 95 28 H 105/61 95 - Problem List & Annotations (1) Bacteremia SNOMED Code(s): 2957121 Code(s): R78.81 - BACTEREMIA Status: Acute Priority: Medium Current Visit: Yes (2) Dehydration SNOMED Code(s): 55577978 Code(s): E86.0 - DEHYDRATION Status: Acute Priority: Low Current Visit: Yes (3) Sepsis associated hypotension SNOMED Code(s): 57159999 Code(s): A41.9 - SEPSIS, UNSPECIFIED ORGANISM; I95.9 - HYPOTENSION, UNSPECIFIED Status: Acute Priority: High Current Visit: Yes (4) Pneumonia SNOMED Code(s): 746346276 Code(s): J18.9 - PNEUMONIA, UNSPECIFIED ORGANISM Status: Acute Priority: High Current Visit: No Onset Date: ~12/27/17 Annotation/Comment:: Ag gressive DuoNeb treatments with additional IV Rocephin and Zithromax during this hospitalization. Subcutaneous Lovenox was used as DVT prophylaxis. Patient did require supplemental oxygen therapy throughout this hospitalization with this to be continued at discharge. Close follow-up by regular provider as per discharge instructions. Patient will be discharged on oral Zithromax and Augmentin as per discharge instructions. Suspect aspiration pneumonia with aspiration precautions to be initiated. Note that patient's family does not wish to have any further aggressive workup, speech therapy consultation, etc.. Despite evidence of possible aspiration patient did respond well to IV Zithromax and IV Rocephin with no additional oral Flagyl therapy to the prescribed at discharge. - Problem List Review Problem List Initiated/Reviewed/Updated: Yes - My Orders Last 24 Hours: My Active Orders 11/22/20 20:00 Dextrose 5%-1/2 NS w/ 20 mEq/L KCl @ 75 mL/Hr (1000 mL) D5 1/2 NS w/ 20 mEq/L KCl 1,000 ml IV ASDIRECTED 11/22/20 20:02 Albuterol [Proventil Neb Soln] 2.5 mg NEB ONETIME ONE 11/22/20 20:03 RT Aerosol Therapy [RC] ASDIRECTED 11/23/20 05:11 BASIC METABOLIC PANEL,BMP [CHEM] AM CBC WITH AUTO DIFF [HEME] AM 11/24/20 05:11 BASIC METABOLIC PANEL,BMP [CHEM] AM - Assessment Assessment:: Assessment #1 sepsis #2 bacteremia #3 acute renal insufficiency #4 dehydration #5 Down syndrome worsening respiratory problems. fever, hypernatremia - Plan Plan:: Blood cultures revealed gram-positive cocci gram-negative rods Lab work this morning white count is down to 24,000 from 27.7 thousand BUN and creatinine has decreased 27/1.4 was 30/1.75 Patient shown improvement through the night he is more alert this morning d ecreased oxygenation said he is still on nasal cannula blood pressure is normalized. We'll continue IV antibiotic therapy Rocephin 1 g every 12 hours Levaquin per renal dosing per pharmacy every 24 vancomycin per renal dosing per pharmacy every 12 hours We'll continue IV hydration at 75 mL's per hour We will continue Lovenox 30 mg subcu daily for DVT prophylaxis We'll continue the use of Tylenol/aspirin as needed for fever and comfort Today we will try p.o. with the patient starting with popsicles increase and possibly to a liquid diet if he is not willing or able to accept we will switch possibly to D5 half-normal saline Labs to be checked in a.m. CBC BMP chest x-ray I believe the patient will still need to be kept for admission for the next 72 hours for IV therapy antibiotics secondary to sepsis 11/22/2020. Plan for today is to continue IV antibiotics with vancomycin per pharmacy dose per renal protocol Levaquin per pharmacy per renal protocol Rocephin 1 g IV continue IV fluid hydration at 75 mL's per hour may change to D5 half pending patient's condition by mid day after encouraged to take p.o. Patient will be set up to chair today Continue supportive measures only respiratory such as breathing treatments p.o. atropine We will continue Lovenox 30 mg subcu daily for DVT prophylaxis Pending the patient taking p.o. today we will transition to Levaquin 750 p.o. s tarting tomorrow Plan [facility] with possible tomorrow if there is no more signs or symptoms of sepsis returning normal vital signs normal lab work and pending signs of patient's condition. 11/22/2020 20:24. Called, JO Emil, his nephew. Did tell me that he is a DNI,DNR, and understood that this illness is not progressing well. Discussed testing, antibiotics, poor PO intake. States that is has been a problem with getting him to take orals. When asked about continued work up, treatment for this illness, Emil gives us permission to make him comfortable and continue treatment and testing as we see fit and contact him if he continues to decline. We will stop the Normal saline and start D5 .45% NS with 20 KCL at 75 an hour. 40 mg of lasix to see if we can increase his urine output. give xopenex and albuterol neb. Discussed Emerson, concern with interaction with keppra. Do not have Mucomyst available this evening. Will check labs in morning
[2020-11-22] MEDS ORDERED: Ketorolac 30 MG/ML SDV IVPUSH ONE (20:56)
[2020-11-23] MEDS: Atropine 1% Ophth Soln 5 ML BOTTLE SL PRN ×2 (01:49→05:11)
[2020-11-23] MEDS: Levalbuterol HCl 1.25 MG/3 ML Neb NEB SCH ×2 (01:49→08:04)
[2020-11-23] MEDS: Acetaminophen 650 MG Supp RECTAL PRN ×2 (01:50→05:12)
[2020-11-23] MEDS ORDERED: LORazepam 2 MG/ML SDV IVPUSH ONE ×2 (02:01→04:54)
[2020-11-23] MEDS ORDERED: LORazepam 2 MG/ML SDV IVPUSH PRN (05:16)
[2020-11-23] MEDS: cefTRIAXone 1 GM in Sodium Chloride 0.9% 100 ML IV SCH (07:58)
[2020-11-23 07:59] LABS: ANION GAP 11.5 meq/L (7-15)
[2020-11-23] MEDS: Enoxaparin 30 MG/0.3 ML Syringe SUBCUT SCH (07:59)
[2020-11-23] MEDS ORDERED: Acetylcysteine 20% 200 MG/ML 30 ML Nebulizer Soln SDV ONE (08:16)
[2020-11-23] MEDS ORDERED: Acetylcysteine 20% 200 MG/ML 30 ML Nebulizer Soln SDV NEB ONE (08:17)
[2020-11-23] MEDS ORDERED: Dextrose 5%-0.45% NaCl 1,000 ML IV ONE (08:30)
--- NOTE | 2020-11-23 08:57 | PCM.PN ---
- General Info Date of Service: 11/23/20 Admission Dx/Problem (Free Text): UTI, sepsis, pneumonia, positive blood cultures Subjective Update: Patient did not have a good night. Was restless, febrile with minimal response to anti pryretics, had tachypnea and agitation. Still not taking in good fluids, continues with fevers and responded well to small doses of ativan for agitation, but now having less responsiveness to stimuli. - Review of Systems General: Reports: Fever HEENT: Reports: No Symptoms Pulmonary: Reports: Cough, Other (tachypnea) Cardiovascular: Reports: No Symptoms Neurological: Reports: Other (decreased response) - Patient Data Vitals - Most Recent: Last Vital Signs Temp 38.8 C H 11/23/20 05:42 Pulse 103 H 11/23/20 05:10 Resp 30 H 11/23/20 05:10 BP 144/79 H 11/23/20 05:10 Pulse Ox 95 11/23/20 05:10 Weight - Most Recent: 58.967 kg I&O - Last 24 Hours: Intake & Output 11/22/20 11/23/20 11/23/20 22:59 06:59 14:59 Intake Total 1193 880 Output Total 425 800 Balance 768 80 Lab Results Last 24 Hours: Laboratory Results - last 24 hr 11/22/20 11/22/20 11/22/20 Range/Units 09:24 09:24 09:24 WBC 16.0 H (4.0-10.2) K/uL RBC 4.40 (4.33-5.41) M/uL Hgb 12.4 L (13.1-16.8) g/dL Hct 36.5 L (39.0-49.0) % MCV 83.0 L (84.0-98.0) fL MCH 28.2 (28.2-33.3) pg MCHC 34.0 (31.7-36.0) g/dL RDW 16.1 H (11.2-14.1) % Plt Count 186 (150-350) K/uL Neut % (Auto) 85.2 H (45.0-80.0) % Lymph % (Auto) 8.5 L (10.0-50.0) % [place] % (Auto) 5.8 (2.0-14.0) % Eos % (Auto) 0.3 (0.0-5.0) % Baso % (Auto) 0.2 (0.0-2.0) % Neut # (Auto) 13.59 H (1.40-7.00) K/uL Lymph # (Auto) 1.36 (0.50-3.50) K/uL [place] # (Auto) 0.93 (0.00-1.00) K/uL Eos # (Auto) 0.04 (0.00-0.50) K/uL Baso # (Auto) 0.03 (0.00-0.20) K/uL Sodium 150 H (136-145) mmol/L Potassium 3.3 L (3.5-5.1) mmol/L Chloride 114 H (98-107) mmol/L Carbon Dioxide 28.2 (21.0-32.0) mmol/L Anion Gap 11.1 (7-15) meq/L BUN 20 H (7-18) mg/dL Creatinine 1.12 (0.51-1.17) mg/dL Est Cr Clr Drug Dosing 57.55 mL/min Estimated GFR (MDRD) > 60 mL/min Glucose 100 H (70-99) mg/dL Calcium 8.6 (8.5-10.1) mg/dL Vancomycin Trough 8.7 L (10-20) ug/mL 11/23/20 11/23/20 Range/Units 07:25 07:25 WBC 26.0 H (4.0-10.2) K/uL RBC 4.21 L (4.33-5.41) M/uL Hgb 11.9 L (13.1-16.8) g/dL Hct 34.2 L (39.0-49.0) % MCV 81.2 L (84.0-98.0) fL MCH 28.3 (28.2-33.3) pg MCHC 34.8 (31.7-36.0) g/dL RDW 15.6 H (11.2-14.1) % Plt Count 196 (150-350) K/uL Neut % (Auto) 88.8 H (45.0-80.0) % Lymph % (Auto) 6.2 L (10.0-50.0) % [place] % (Auto) 4.7 (2.0-14.0) % Eos % (Auto) 0.1 (0.0-5.0) % Baso % (Auto) 0.2 (0.0-2.0) % Neut # (Auto) 23.08 H (1.40-7.00) K/uL Lymph # (Auto) 1.61 (0.50-3.50) K/uL [place] # (Auto) 1.22 H (0.00-1.00) K/uL Eos # (Auto) 0.02 (0.00-0.50) K/uL Baso # (Auto) 0.04 (0.00-0.20) K/uL Sodium 148 H (136-145) mmol/L Potassium 3.4 L (3.5-5.1) mmol/L Chloride 113 H (98-107) mmol/L Carbon Dioxide 26.9 (21.0-32.0) mmol/L Anion Gap 11.5 (7-15) meq/L BUN 22 H (7-18) mg/dL Creatinine 1.70 H (0.51-1.17) mg/dL Est Cr Clr Drug Dosing 37.92 mL/min Estimated GFR (MDRD) 42 mL/min Glucose 124 H (70-99) mg/dL Calcium 7.9 L (8.5-10.1) mg/dL Vancomycin Trough (10-20) ug/mL Miles Results Last 24 Hours: Microbiology 11/20/20 07:15 Aerobic Blood Culture - Final Blood - Venous Streptococcus Parasanguis Anaerobic Blood Culture - Final Escherichia Coli 11/20/20 07:25 Aerobic Blood Culture - Final Blood - Venous - Lab Draw Gram Negative Rods Gram Positive Cocci Anaerobic Blood Culture - Final 11/20/20 08:50 Urine Culture - Final Urine, Catheterized Proteus Mirabilis Escherichia Coli Med Orders - Current: Current Medications Acetaminophen (Acetaminophen 650 Mg Supp) 650 mg RECTAL Q4H PRN PRN Reason: analgesia/fever Last Admin: 11/23/20 05:12 Dose: 650 mg Documented by: Aspirin (Aspirin 300 Mg Supp) 300 mg RECTAL Q4H PRN PRN Reason: Fever Last Admin: 11/20/20 19:34 Dose: 300 mg Documented by: Atropine Sulfate (Atropine 1% Ophth Soln 5 Ml Bottle) 0 ml SL Q2H PRN PRN Reason: secretions Last Admin: 11/23/20 05:11 Dose: 5 ml Documented by: Enoxaparin Sodium (Enoxaparin 30 Mg/0.3 Ml Syringe) 30 mg SUBCUT DAILY [facility] Last Admin: 11/23/20 07:59 Dose: 30 mg Documented by: Ceftriaxone Sodium 1 gm/ (Sodium Chloride) 100 mls @ 200 mls/hr IV Q12H [facility] Last Admin: 11/23/20 07:58 Dose: 200 mls/hr Documented by: Levofloxacin/Dextrose 750 mg/ (Premix) 150 mls @ 100 mls/hr IV Q48H [facility] Last Admin: 11/22/20 09:41 Dose: 100 mls/hr Documented by: Potassium Chloride/Dextrose/Sod Cl (D5 1/2 Ns W/ 20 Meq/L Kcl) 1,000 mls @ 75 mls/hr IV ASDIRECTED [facility] Last Admin: 11/22/20 20:53 Dose: 75 mls/hr Documented by: Dextrose/Sodium Chloride (Dextrose 5%-1/2 Ns) 1,000 mls @ 1,000 mls/hr IV ONETIME ONE Stop: 11/23/20 09:29 Last Admin: 11/23/20 08:48 Dose: 1,000 mls/hr Documented by: Levalbuterol HCl (Levalbuterol Hcl 1.25 Mg/3 Ml Neb) 1.25 mg NEB Q6HRRT [facility] Last Admin: 11/23/20 08:04 Dose: 1.25 mg Documented by: Sodium Chloride (Sodium Chloride 0.9% 10 Ml Syringe) 10 ml FLUSH ASDIRECTED PRN PRN Reason: IV Use Last Admin: 11/22/20 00:17 Dose: 10 ml Documented by: Discontinued Medications Acetaminophen (Acetaminophen 650 Mg Supp) 650 mg RECTAL NOW ONE Stop: 11/20/20 07:00 Last Admin: 11/20/20 07:04 Dose: 650 mg Documented by: Acetylcysteine (Acetylcysteine 20% 200 Mg/Ml 30 Ml Nebulizer Soln Sdv) Confirm Administered Dose 6,000 mg .ROUTE .STK-MED ONE Stop: 11/23/20 08:17 Last Admin: 11/23/20 08:24 Dose: Not Given Documented by: Acetylcysteine (Acetylcysteine 20% 200 Mg/Ml 30 Ml Nebulizer Soln Sdv) 400 mg NEB ONETIME ONE Stop: 11/23/20 08:18 Last Admin: 11/23/20 08:47 Dose: 400 mg Documented by: Albuterol (Albuterol 0.083% 2.5 Mg/3 Ml Neb Soln) 2.5 mg NEB ONETIME ONE Stop: 11/22/20 20:03 Last Admin: 11/22/20 20:49 Dose: 2.5 mg Documented by: Albuterol/Ipratropium (Albuterol/Ipratropium 3.0-0.5 Mg/3 Ml Neb Soln) 3 ml NEB ONETIME ONE Stop: 11/20/20 15:41 Last Admin: 11/20/20 15:47 Dose: 3 ml Documented by: Furosemide (Furosemide 20 Mg/2 Ml Vial) 20 mg IVPUSH ONETIME ONE Stop: 11/20/20 23:16 Last Admin: 11/20/20 23:27 Dose: 10 mg Documented by: Furosemide (Furosemide 20 Mg/2 Ml Vial) 20 mg IVPUSH ONETIME ONE Stop: 11/22/20 00:03 Last Admin: 11/22/20 00:17 Dose: 20 mg Documented by: Furosemide (Furosemide 40 Mg/4 Ml Vial) 40 mg IVPUSH NOW ONE Stop: 11/22/20 19:53 Last Admin: 11/22/20 20:27 Dose: 40 mg Documented by: Ceftriaxone Sodium 1 gm/ (Sodium Chloride) 100 mls @ 200 mls/hr IV Q24H [facility] Last Admin: 11/20/20 08:30 Dose: 200 mls/hr Documented by: Sodium Chloride (Normal Saline) 1,000 mls @ 999 mls/hr IV .BOLUS ONE Stop: 11/20/20 09:46 Last Admin: 11/20/20 08:47 Dose: 999 mls/hr Documented by: Levofloxacin/Dextrose 750 mg/ (Premix) 150 mls @ 100 mls/hr IV ONETIME ONE Stop: 11/20/20 10:20 Last Admin: 11/20/20 09:20 Dose: 100 mls/hr Documented by: Vancomycin HCl 1.5 gm/ Premix 300 mls @ 200 mls/hr IV ONETIME ONE Stop: 11/20/20 10:20 Last Admin: 11/20/20 09:16 Dose: 200 mls/hr Documented by: Sodium Chloride (Normal Saline) 1,000 mls @ 50 mls/hr IV ASDIRECTED [facility] Last Admin: 11/21/20 21:49 Dose: 50 mls/hr Documented by: Vancomycin HCl 1 gm/ Sodium (Chloride) 250 mls @ 165 mls/hr IV Q24H [facility] Last Admin: 11/22/20 11:32 Dose: 165 mls/hr Documented by: Sodium Chloride (Normal Saline) 1,000 mls @ 75 mls/hr IV ASDIRECTED [facility] Last Admin: 11/22/20 15:17 Dose: 75 mls/hr Documented by: Ketorolac Tromethamine (Ketorolac 30 Mg/Ml Sdv) 30 mg IVPUSH ONETIME ONE Stop: 11/22/20 20:57 Last Admin: 11/22/20 21:10 Dose: 30 mg Documented by: Lorazepam (Lorazepam 2 Mg/Ml Sdv) 0.5 mg IVPUSH ONETIME ONE Stop: 11/23/20 02:02 Last Admin: 11/23/20 02:26 Dose: 0.5 mg Documented by: Lorazepam (Lorazepam 2 Mg/Ml Sdv) 0.5 mg IVPUSH ONETIME ONE Stop: 11/23/20 04:55 Last Admin: 11/23/20 05:12 Dose: 0.5 mg Documented by: Lorazepam (Lorazepam 2 Mg/Ml Sdv) 0.5 mg IVPUSH Q1H PRN PRN Reason: Agitation Stop: 11/23/20 08:31 Vancomycin HCl (Pharmacy To Dose - Vancomycin) 1 dose .XX ASDIRECTED [facility] - Exam Quality Assessment: Supplemental Oxygen General: Obtunded Lungs: Decreased Breath Sounds, Crackles, Rales, Rhonchi, Other (tachypnea) GI/Abdominal Exam: Abnormal Bowel Sounds (decreased) - Patient Data Lab Results Last 24 hrs: Laboratory Results - last 24 hr 11/22/20 11/22/20 11/22/20 Range/Units 09:24 09:24 09:24 WBC 16.0 H (4.0-10.2) K/uL RBC 4.40 (4.33-5.41) M/uL Hgb 12.4 L (13.1-16.8) g/dL Hct 36.5 L (39.0-49.0) % MCV 83.0 L (84.0-98.0) fL MCH 28.2 (28.2-33.3) pg MCHC 34.0 (31.7-36.0) g/dL RDW 16.1 H (11.2-14.1) % Plt Count 186 (150-350) K/uL Neut % (Auto) 85.2 H (45.0-80.0) % Lymph % (Auto) 8.5 L (10.0-50.0) % [place] % (Auto) 5.8 (2.0-14.0) % Eos % (Auto) 0.3 (0.0-5.0) % Baso % (Auto) 0.2 (0.0-2.0) % Neut # (Auto) 13.59 H (1.40-7.00) K/uL Lymph # (Auto) 1.36 (0.50-3.50) K/uL [place] # (Auto) 0.93 (0.00-1.00) K/uL Eos # (Auto) 0.04 (0.00-0.50) K/uL Baso # (Auto) 0.03 (0.00-0.20) K/uL Sodium 150 H (136-145) mmol/L Potassium 3.3 L (3.5-5.1) mmol/L Chloride 114 H (98-107) mmol/L Carbon Dioxide 28.2 (21.0-32.0) mmol/L Anion Gap 11.1 (7-15) meq/L BUN 20 H (7-18) mg/dL Creatinine 1.12 (0.51-1.17) mg/dL Est Cr Clr Drug Dosing 57.55 mL/min Estimated GFR (MDRD) > 60 mL/min Glucose 100 H (70-99) mg/dL Calcium 8.6 (8.5-10.1) mg/dL Vancomycin Trough 8.7 L (10-20) ug/mL 11/23/20 11/23/20 Range/Units 07:25 07:25 WBC 26.0 H (4.0-10.2) K/uL RBC 4.21 L (4.33-5.41) M/uL Hgb 11.9 L (13.1-16.8) g/dL Hct 34.2 L (39.0-49.0) % MCV 81.2 L (84.0-98.0) fL MCH 28.3 (28.2-33.3) pg MCHC 34.8 (31.7-36.0) g/dL RDW 15.6 H (11.2-14.1) % Plt Count 196 (150-350) K/uL Neut % (Auto) 88.8 H (45.0-80.0) % Lymph % (Auto) 6.2 L (10.0-50.0) % [place] % (Auto) 4.7 (2.0-14.0) % Eos % (Auto) 0.1 (0.0-5.0) % Baso % (Auto) 0.2 (0.0-2.0) % Neut # (Auto) 23.08 H (1.40-7.00) K/uL Lymph # (Auto) 1.61 (0.50-3.50) K/uL [place] # (Auto) 1.22 H (0.00-1.00) K/uL Eos # (Auto) 0.02 (0.00-0.50) K/uL Baso # (Auto) 0.04 (0.00-0.20) K/uL Sodium 148 H (136-145) mmol/L Potassium 3.4 L (3.5-5.1) mmol/L Chloride 113 H (98-107) mmol/L Carbon Dioxide 26.9 (21.0-32.0) mmol/L Anion Gap 11.5 (7-15) meq/L BUN 22 H (7-18) mg/dL Creatinine 1.70 H (0.51-1.17) mg/dL Est Cr Clr Drug Dosing 37.92 mL/min Estimated GFR (MDRD) 42 mL/min Glucose 124 H (70-99) mg/dL Calcium 7.9 L (8.5-10.1) mg/dL Vancomycin Trough (10-20) ug/mL Result Diagrams: 11/23/20 07:25 11/23/20 07:25 Miles Results Last 24 hrs: Microbiology 11/20/20 07:15 Aerobic Blood Culture - Final Blood - Venous Streptococcus Parasanguis Anaerobic Blood Culture - Final Escherichia Coli 11/20/20 07:25 Aerobic Blood Culture - Final Blood - Venous - Lab Draw Gram Negative Rods Gram Positive Cocci Anaerobic Blood Culture - Final 11/20/20 08:50 Urine Culture - Final Urine, Catheterized Proteus Mirabilis Escherichia Coli Sepsis Event Note - Evaluation Sepsis Screening Result: Sepsis Risk Current Stage of Sepsis: Sepsis Possible Source of Sepsis: GI Tract/Intra-abdominal - Focused Exam Sepsis Event Note Statement: Focused Sepsis Exam Completed Vital Signs: Vital Signs Temp Temp Pulse Resp BP Pulse Ox 11/23/20 05:42 38.8 C H 11/23/20 05:12 38.0 C 11/23/20 05:10 38.0 C 103 H 30 H 144/79 H 95 11/23/20 04:00 38.0 C 11/23/20 02:20 37.6 C 11/23/20 01:58 37.6 C 110 H 30 H 73/45 L 96 11/23/20 01:50 37.9 C 11/23/20 00:00 37.9 C 105 H 32 H 95/61 95 Respiratory Effort Without Exertion: Dyspneic Pulse Description: 2+ Normal Peripheral Pulse Location: Radial Skin Exam (Focused Sepsis): Flushed Date Exam was Performed: 11/23/20 - Problem List & Annotations (1) Bacteremia SNOMED Code(s): 1207374 Code(s): R78.81 - BACTEREMIA Status: Acute Priority: High Current Visit: Yes (2) Dehydration SNOMED Code(s): 67376046 Code(s): E86.0 - DEHYDRATION Status: Acute Priority: Medium Current Visit: Yes (3) Sepsis associated hypotension SNOMED Code(s): 53593126 Code(s): A41.9 - SEPSIS, UNSPECIFIED ORGANISM; I95.9 - HYPOTENSION, UNSPECIF IED Status: Acute Priority: High Current Visit: Yes (4) Pneumonia SNOMED Code(s): 191907344 Code(s): J18.9 - PNEUMONIA, UNSPECIFIED ORGANISM Status: Acute Priority: High Current Visit: No Onset Date: ~12/27/17 - Problem List Review Problem List Initiated/Reviewed/Updated: Yes - My Orders Last 24 Hours: My Active Orders 11/22/20 20:00 D5 1/2 NS w/ 20 mEq/L KCl 1,000 ml IV ASDIRECTED 11/22/20 20:03 RT Aerosol Therapy [RC] ASDIRECTED 11/23/20 08:19 RT Aerosol Therapy [RC] ASDIRECTED 11/23/20 08:30 Dextrose 5%-0.45% NaCl [Dextrose 5%-1/2 NS] 1,000 ml IV ASDIRECTED 11/24/20 05:11 BASIC METABOLIC PANEL,BMP [CHEM] AM - Assessment Assessment:: Assessment #1 sepsis #2 bacteremia #3 acute renal insufficiency #4 dehydration #5 Down syndrome worsening respiratory problems. fever, hypernatremia worsening respiratory problems, increased leukocytosis, fever not responding to medications, decreased alertness, worsening sepsis - Plan Plan:: Blood cultures revealed gram-positive cocci gram-negative rods Lab work this morning white count is down to 24,000 from 27.7 thousand BUN and creatinine has decreased /.4 was 01/06.75 Patient shown improvement through the night he is more alert this morning decreased oxygenation said he is still on nasal cannula blood pressure is normalized. We'll continue IV antibiotic therapy Rocephin 1 g every 12 hours Levaquin per renal dosing per pharmacy every 24 vancomycin per renal dosing per pharmacy every 12 hours We'll continue IV hydration at 75 mL's per hour We will continue Lovenox 30 mg subcu daily for DVT prophylaxis We'll continue the use of Tylenol/aspirin as needed for fever and comfort Today we will try p.o. with the patient starting with popsicles increase and possibly to a liquid diet if he is not willing or able to accept we will switch possibly to D5 half-normal saline Labs to be checked in a.m. CBC BMP chest x-ray I believe the patient will still need to be kept for admission for the next 72 hours for IV therapy antibiotics secondary to sepsis 11/22/2020. Plan for today is to continue IV antibiotics with vancomycin per pharmacy dose per renal protocol Levaquin per pharmacy per renal protocol Rocephin 1 g IV continue IV fluid hydration at 75 mL's per hour may change to D5 half pending patient's condition by mid day after encouraged to take p.o. Patient will be set up to chair today Continue supportive measures only respiratory such as breathing treatments p.o. atropine We will continue Lovenox 30 mg subcu daily for DVT prophylaxis Pending the patient taking p.o. today we will transition to Levaquin 750 p.o. starting tomorrow Plan is to discharge back to [facility] with possible tomorrow if there is no more signs or symptoms of sepsis returning normal vital signs normal lab work and pending signs of patient's condition. 11/22/2020 20:24. Called, JO Stein, his nephew. Did tell me that he is a DNI,DNR, and understood that this illness is not progressing well. Discussed testing, antibiotics, poor PO intake. States that is has been a problem with getting him to take orals. When asked about continued work up, treatment for this illness, Emil gives us pe rmission to make him comfortable and continue treatment and testing as we see fit and contact him if he continues to decline. We will stop the Normal saline and start D5 .45% NS with 20 KCL at 75 an hour. 40 mg of lasix to see if we can increase his urine output. give xopenex and albuterol neb. Discussed Levisn, concern with interaction with keppra. Do not have Mucomyst available this evening. Will check labs in morning 11/23/2020 9:00 Patient has worsening sepsis, white count elevated today, unrelenting fever through medications last night. Continues to not take in any PO fluids. Lasix yesterday did produce more output, but did not improve lungs or fluid, and does not respond to staff anymore. agitated over the night, given 0.5 mg of ativan every hour for this and did make him more comfortable. after labs returned with worsening illness and decreased responsiveness to cares, call to JO Stein. Discussed turn of events with him. He is agreeable to comfort cares at this [facility]. Patient's mother in [facility] with him and is lucid. May like to have him there as end of life occurs. This is a weekend and we need to figure out how to get him ativan and or pain medication for comfort care at [facility]. Did discuss this with nurse at the [facility]. They are able to give PO, rectal or IM medications. Call to pharmacist for ability to get on a Wednesday, awaiting call back. Did receive his Rocephin today, not due to levaquin until tomorrow. Will give a liter bolus of d 5 /.45% ns, and resume previous fluids at 75/hr for now. Pain is controlled, continue to give rectal tylenol and aspirin for fevers./ Did give a 2 ml nebulized dose of mucomyst to help with airway secretions. The ativan is helping him to rest comfortably 9:30 Pharmacy is able to get us morphine sulfate solution 20mg/ml ( sig 0.5-1 ml every 4 hrs prn pain #20 ml no refill) and lorazepam solution 2 mg/ml ( 0.5-1 ml every 3 hours prn agitation #20 ml no refill). Will be filled and EMS transfer back to [facility] for end of life care. Emil is aware, mother at [facility] is aware.
--- NOTE | 2020-11-23 09:39 | PCM.DCSUM1 ---
Discharge Summary - Hospital Course Free Text/Narrative:: admitted to the hospital for sepsis, was improving with initial cares, worsening, decision made to send back to group home for end of life care, family aware and desire this plan HPI Initial Comments: see hospital course, positive blood cultures, uti, pneuonia, sepsis. Not improving DNI/DNR, worsening condition. decsions for comfort care made. POA aware and in agreement. Send back to group home with liquid morphine and lo razepam Diagnosis: Stroke: No Modified Cabery Scale: Sev.Disablility Bedridden,Incont.&Require Constant Nrsg.Care/Attention Modified Leonor Scale Score: 5 - Discharge Data Discharge Date: 11/23/20 (comfort care) Discharge Disposition: DC/Tfer to [facility] Condition: Poor - Referral to Home Health Primary Care Physician: Maciel Weiss MD - Discharge Diagnosis/Problem(s) (1) Bacteremia SNOMED Code(s): 4220308 ICD Code: R78.81 - BACTEREMIA Status: Acute Priority: High Current Visit: Yes (2) Dehydration SNOMED Code(s): 31746608 ICD Code: E86.0 - DEHYDRATION Status: Acute Priority: Medium Current Visit: Yes (3) Sepsis associated hypotension SNOMED Code(s): 61252050 ICD Code: A41.9 - SEPSIS, UNSPECIFIED ORGANISM; I95.9 - HYPOTENSION, UNSPECIFIED Status: Acute Priority: High Current Visit: Yes (4) Pneumonia SNOMED Code(s): 897439950 ICD Code: J18.9 - PNEUMONIA, UNSPECIFIED ORGANISM Status: Acute Priority: High Current Visit: No Onset Date: ~12/27/17 - Patient Summary/Data Complications: sepsis, not improving, no oral intake - Discharge Plan *PRESCRIPTION DRUG MONITORING PROGRAM REVIEWED*: No *COPY OF PRESCRIPTION DRUG MONITORING REPORT IN PATIENT GEOVANNA: No Home Medications: Home Meds Acetaminophen [Tylenol] 650 mg RECTAL Q4H PRN supp 11/23/20 [Rx] Aspirin 300 mg RECTAL Q4H PRN supp 11/23/20 [Rx] Oxygen Therapy Mode: Nasal Cannula (4-5 liters) Oxygen Flow Rate (L/min): 4 Forms: ED Department Discharge, ED Department Discharge Referrals: Maciel Weiss MD [Primary Care Provider] - - Discharge Summary/Plan Comment DC Time >30 min.: No Discharge Summary/Plan Comment: Patient is being sent back to group home for strict comfort cares and end of life care due to sepsis. Will DC all medications other than rectal tylenol and rectal aspirin. Prescribed oral morphine sulfate 20mg/ml, take 0.5-1 ml every 4 hours as needed for pain. Also prescribed oral lorazepam, 2 mg/ml, 0.5-1 ml every 3-4 hours prn agitiation. JO Stein is aware of end of life cares. Worsening sepsis, unrelenting fevers and no oral intake. Continue oxygen as needed. [facility] - Patient Data Vitals - Most Recent: Last Vital Signs Temp 38.2 C H 11/23/20 08:00 Pulse 100 11/23/20 08:00 Resp 40 H 11/23/20 08:00 BP 137/71 11/23/20 08:00 Pulse Ox 90 L 11/23/20 08:00 Weight - Most Recent: 58.967 kg I&O - Last 24 hours: Intake & Output 11/22/20 11/23/20 11/23/20 22:59 06:59 14:59 Intake Total 1193 880 Output Total 425 800 Balance 768 80 Lab Results - Last 24 hrs: Laboratory Results - last 24 hr 11/22/20 11/22/20 11/22/20 Range/Units 09:24 09:24 09:24 WBC 16.0 H (4.0-10.2) K/uL RBC 4.40 (4.33-5.41) M/uL Hgb 12.4 L (13.1-16.8) g/dL Hct 36.5 L (39.0-49.0) % MCV 83.0 L (84.0-98.0) fL MCH 28.2 (28.2-33.3) pg MCHC 34.0 (31.7-36.0) g/dL RDW 16.1 H (11.2-14.1) % Plt Count 186 (150-350) K/uL Neut % (Auto) 85.2 H (45.0-80.0) % Lymph % (Auto) 8.5 L (10.0-50.0) % [place] % (Auto) 5.8 (2.0-14.0) % Eos % (Auto) 0.3 (0.0-5.0) % Baso % (Auto) 0.2 (0.0-2.0) % Neut # (Auto) 13.59 H (1.40-7.00) K/uL Lymph # (Auto) 1.36 (0.50-3.50) K/uL [place]kin # (Auto) 0.93 (0.00-1.00) K/uL Eos # (Auto) 0.04 (0.00-0.50) K/uL Baso # (Auto) 0.03 (0.00-0.20) K/uL Sodium 150 H (136-145) mmol/L Potassium 3.3 L (3.5-5.1) mmol/L Chloride 114 H (98-107) mmol/L Carbon Dioxide 28.2 (21.0-32.0) mmol/L Anion Gap 11.1 (7-15) meq/L BUN 20 H (7-18) mg/dL Creatinine 1.12 (0.51-1.17) mg/dL Est Cr Clr Drug Dosing 57.55 mL/min Estimated GFR (MDRD) > 60 mL/min Glucose 100 H (70-99) mg/dL Calcium 8.6 (8.5-10.1) mg/dL Vancomycin Trough 8.7 L (10-20) ug/mL 11/23/20 11/23/20 Range/Units 07:25 07:25 WBC 26.0 H (4.0-10.2) K/uL RBC 4.21 L (4.33-5.41) M/uL Hgb 11.9 L (13.1-16.8) g/dL Hct 34.2 L (39.0-49.0) % MCV 81.2 L (84.0-98.0) fL MCH 28.3 (28.2-33.3) pg MCHC 34.8 (31.7-36.0) g/dL RDW 15.6 H (11.2-14.1) % Plt Count 196 (150-350) K/uL Neut % (Auto) 88.8 H (45.0-80.0) % Lymph % (Auto) 6.2 L (10.0-50.0) % [place] % (Auto) 4.7 (2.0-14.0) % Eos % (Auto) 0.1 (0.0-5.0) % Baso % (Auto) 0.2 (0.0-2.0) % Neut # (Auto) 23.08 H (1.40-7.00) K/uL Lymph # (Auto) 1.61 (0.50-3.50) K/uL [place] # (Auto) 1.22 H (0.00-1.00) K/uL Eos # (Auto) 0.02 (0.00-0.50) K/uL Baso # (Auto) 0.04 (0.00-0.20) K/uL Sodium 148 H (136-145) mmol/L Potassium 3.4 L (3.5-5.1) mmol/L Chloride 113 H (98-107) mmol/L Carbon Dioxide 26.9 (21.0-32.0) mmol/L Anion Gap 11.5 (7-15) meq/L BUN 22 H (7-18) mg/dL Creatinine 1.70 H (0.51-1.17) mg/dL Est Cr Clr Drug Dosing 37.92 mL/min Estimated GFR (MDRD) 42 mL/min Glucose 124 H (70-99) mg/dL Calcium 7.9 L (8.5-10.1) mg/dL Vancomycin Trough (10-20) ug/mL REESE Results - Last 24 hrs: Microbiology 11/20/20 07:15 Aerobic Blood Culture - Final Blood - Venous Streptococcus Parasanguis Anaerobic Blood Culture - Final Escherichia Coli 11/20/20 07:25 Aerobic Blood Culture - Final Blood - Venous - Lab Draw Gram Negative Rods Gram Positive Cocci Anaerobic Blood Culture - Final 11/20/20 08:50 Urine Culture - Final Urine, Catheterized Proteus Mirabilis Escherichia Coli Med Orders - Current: Current Medications Acetaminophen (Acetaminophen 650 Mg Supp) 650 mg RECTAL Q4H PRN PRN Reason: analgesia/fever Last Admin: 11/23/20 05:12 Dose: 650 mg Documented by: Aspirin (Aspirin 300 Mg Supp) 300 mg RECTAL Q4H PRN PRN Reason: Fever Last Admin: 11/20/20 19:34 Dose: 300 mg Documented by: Atropine Sulfate (Atropine 1% Ophth Soln 5 Ml Bottle) 0 ml SL Q2H PRN PRN Reason: secretions Last Admin: 11/23/20 05:11 Dose: 5 ml Documented by: Enoxaparin Sodium (Enoxaparin 30 Mg/0.3 Ml Syringe) 30 mg SUBCUT DAILY [facility] Last Admin: 11/23/20 07:59 Dose: 30 mg Documented by: Ceftriaxone Sodium 1 gm/ (Sodium Chloride) 100 mls @ 200 mls/hr IV Q12H [facility] Last Admin: 11/23/20 07:58 Dose: 200 mls/hr Documented by: Levofloxacin/Dextrose 750 mg/ (Premix) 150 mls @ 100 mls/hr IV Q48H [facility] Last Admin: 11/22/20 09:41 Dose: 100 mls/hr Documented by: Potassium Chloride/Dextrose/Sod Cl (D5 1/2 Ns W/ 20 Meq/L Kcl) 1,000 mls @ 75 mls/hr IV ASDIRECTED [facility] Last Admin: 11/22/20 20:53 Dose: 75 mls/hr Documented by: Levalbuterol HCl (Levalbuterol Hcl 1.25 Mg/3 Ml Neb) 1.25 mg NEB Q6HRRT [facility] Last Admin: 11/23/20 08:04 Dose: 1.25 mg Documented by: Sodium Chloride (Sodium Chloride 0.9% 10 Ml Syringe) 10 ml FLUSH ASDIRECTED PRN PRN Reason: IV Use Last Admin: 11/22/20 00:17 Dose: 10 ml Documented by: Discontinued Medications Acetaminophen (Acetaminophen 650 Mg Supp) 650 mg RECTAL NOW ONE Stop: 11/20/20 07:00 Last Admin: 11/20/20 07:04 Dose: 650 mg Documented by: Acetylcysteine (Acetylcysteine 20% 200 Mg/Ml 30 Ml Nebulizer Soln Sdv) Confirm Administered Dose 6,000 mg .ROUTE .STK-MED ONE Stop: 11/23/20 08:17 Last Admin: 11/23/20 08:24 Dose: Not Given Documented by: Acetylcysteine (Acetylcysteine 20% 200 Mg/Ml 30 Ml Nebulizer Soln Sdv) 400 mg NEB ONETIME ONE Stop: 11/23/20 08:18 Last Admin: 11/23/20 08:47 Dose: 400 mg Documented by: Albuterol (Albuterol 0.083% 2.5 Mg/3 Ml Neb Soln) 2.5 mg NEB ONETIME ONE Stop: 11/22/20 20:03 Last Admin: 11/22/20 20:49 Dose: 2.5 mg Documented by: Albuterol/Ipratropium (Albuterol/Ipratropium 3.0-0.5 Mg/3 Ml Neb Soln) 3 ml NEB ONETIME ONE Stop: 11/20/20 15:41 Last Admin: 11/20/20 15:47 Dose: 3 ml Documented by: Furosemide (Furosemide 20 Mg/2 Ml Vial) 20 mg IVPUSH ONETIME ONE Stop: 11/20/20 23:16 Last Admin: 11/20/20 23:27 Dose: 10 mg Documented by: Furosemide (Furosemide 20 Mg/2 Ml Vial) 20 mg IVPUSH ONETIME ONE Stop: 11/22/20 00:03 Last Admin: 11/22/20 00:17 Dose: 20 mg Documented by: Furosemide (Furosemide 40 Mg/4 Ml Vial) 40 mg IVPUSH NOW ONE Stop: 11/22/20 19:53 Last Admin: 11/22/20 20:27 Dose: 40 mg Documented by: Ceftriaxone Sodium 1 gm/ (Sodium Chloride) 100 mls @ 200 mls/hr IV Q24H [facility] Last Admin: 11/20/20 08:30 Dose: 200 mls/hr Documented by: Sodium Chloride (Normal Saline) 1,000 mls @ 999 mls/hr IV .BOLUS ONE Stop: 11/20/20 09:46 Last Admin: 11/20/20 08:47 Dose: 999 mls/hr Documented by: Levofloxacin/Dextrose 750 mg/ (Premix) 150 mls @ 100 mls/hr IV ONETIME ONE Stop: 11/20/20 10:20 Last Admin: 11/20/20 09:20 Dose: 100 mls/hr Documented by: Vancomycin HCl 1.5 gm/ Premix 300 mls @ 200 mls/hr IV ONETIME ONE Stop: 11/20/20 10:20 Last Admin: 11/20/20 09:16 Dose: 200 mls/hr Documented by: Sodium Chloride (Normal Saline) 1,000 mls @ 50 mls/hr IV ASDIRECTED [facility] Last Admin: 11/21/20 21:49 Dose: 50 mls/hr Documented by: Vancomycin HCl 1 gm/ Sodium (Chloride) 250 mls @ 165 mls/hr IV Q24H [facility] Last Admin: 11/22/20 11:32 Dose: 165 mls/hr Documented by: Sodium Chloride (Normal Saline) 1,000 mls @ 75 mls/hr IV ASDIRECTED [facility] Last Admin: 11/22/20 15:17 Dose: 75 mls/hr Documented by: Dextrose/Sodium Chloride (Dextrose 5%-1/2 Ns) 1,000 mls @ 1,000 mls/hr IV ONETIME ONE Stop: 11/23/20 09:29 Last Admin: 11/23/20 08:48 Dose: 1,000 mls/hr Documented by: Ketorolac Tromethamine (Ketorolac 30 Mg/Ml Sdv) 30 mg IVPUSH ONETIME ONE Stop: 11/22/20 20:57 Last Admin: 11/22/20 21:10 Dose: 30 mg Documented by: Lorazepam (Lorazepam 2 Mg/Ml Sdv) 0.5 mg IVPUSH ONETIME ONE Stop: 11/23/20 02:02 Last Admin: 11/23/20 02:26 Dose: 0.5 mg Documented by: Lorazepam (Lorazepam 2 Mg/Ml Sdv) 0.5 mg IVPUSH ONETIME ONE Stop: 11/23/20 04:55 Last Admin: 11/23/20 05:12 Dose: 0.5 mg Documented by: Lorazepam (Lorazepam 2 Mg/Ml Sdv) 0.5 mg IVPUSH Q1H PRN PRN Reason: Agitation Stop: 11/23/20 08:31 Vancomycin HCl (Pharmacy To Dose - Vancomycin) 1 dose .XX ASDIRECTED [facility]
[2020-11-23] MEDS ORDERED: VANCOmycin 1.5 GM/300 ML 1.5 GM in Premix Bag 1 BAG IV SCH (10:00)
== END 2020-11-23 10:35 | DRG 698 ==
LOC: LL.ED 06:44 → LL.MS 10:54
PROVIDERS: ADMIT Physician Assistant Medical; ATTEND Physician Assistant Medical
DX: T83.511A Infection and inflammatory reaction due to indwelling urethral catheter, initial encounter (principal); A41.9 Sepsis, unspecified organism; J18.9 Pneumonia, unspecified organism; R78.81 Bacteremia; E87.0 Hyperosmolality and hypernatremia; G81.14 Spastic hemiplegia affecting left nondominant side; N39.0 Urinary tract infection, site not specified; Z51.5 Encounter for palliative care; Z66 Do not resuscitate; N28.9 Disorder of kidney and ureter, unspecified; E86.0 Dehydration; I95.9 Hypotension, unspecified; Q90.9 Down syndrome, unspecified; Z93.6 Other artificial openings of urinary tract status; E03.9 Hypothyroidism, unspecified; F03.90 Unspecified dementia, unspecified severity, without behavioral disturbance, psychotic disturbance, mood disturbance, and anxiety; Z79.82 Long term (current) use of aspirin; Z79.890 Hormone replacement therapy; Z79.899 Other long term (current) drug therapy
CPT/HCPCS: 36415; 36416; 71045; 80048; 80202; 81001; 83605; 85025; 85610; 87040; 87077; 87086; 87088; 87186; 94640; 96365; 96367; 96368; 99223; 99232; 99233; 99238; 99285-25; A9270-GY; J0696; J1650; J1885; J1940; J1956; J2060; J3370; J3480; J7030; J7042; J7050; J7612-GY; J7613-GY; J7620-GY

== ENCOUNTER 2021-04-09 09:30 | Inpatient (IN) | payer MEDICARE, MEDICAID ==
[2021-04-09] MEDS ORDERED: Lactated Ringers 1,000 ML IV ONE (09:37)
[2021-04-09] MEDS ORDERED: cefTRIAXone 2 GM Vial IV ONE (09:37)
--- NOTE | 2021-04-09 09:44 | EDM.PDOC ---
ED HPI GENERAL MEDICAL PROBLEM - General Chief Complaint: Fever Stated Complaint: hematuria, fever, tachycardia Time Seen by Provider: 04/09/21 10:05 Source of Information: Reports: Family, Provider History Limitations: Reports: Other (non verbal at [facility]) - History of Present Illness INITIAL COMMENTS - FREE TEXT/NARRATIVE: Facundo Hawkins is a 55 year old with PMH significant for downs syndrome, dementia, left sided hemiplegia, hypothyroidism and chronic indwelling alegre catheter secondary to neurogenic bladder who presented to the ED on 04/09/21 via EMS from his nursing facility with complaints of altered mental status, brb in alegre bag. of note, facundo in non verbal at baseline so was unable to contribute to the HPI. per EMS symptoms began within hours of presentation. there were no reports of fever, chills, SOB. Onset: Today, Sudden - Related Data Allergies Allergy/AdvReac Type Severity Reaction Status Date / Time No Known Allergies Allergy Verified 11/20/20 06:53 Home Meds: Home Meds Acetaminophen [Tylenol] 650 mg RECTAL Q4H PRN supp 11/23/20 [Rx] Acetaminophen [Tylenol Bulk Bottle] 650 mg PO Q4H PRN 04/09/21 [History] LORazepam [LORazepam Intensol] 0.5 ml PO Q3H PRN 04/09/21 [History] Non-Formulary Medication [NF Drug] 0.5 ml PO Q4HR PRN 04/09/21 [History] Past Medical History HEENT History: Reports: Other (See Below) Other HEENT History: non verbal at baseline Cardiovascular History: Reports: None Respiratory History: Reports: None Genitourinary History: Reports: Other (See Below) Other Genitourinary History: indwelling alegre catheter Musculoskeletal History: Reports: Other (See Below) Other Musculoskeletal History: spastic hemiplegia affecting left nondominant side, brace to LLE when ever pt is up with stocking Neurological History: Reports: Other (See Below) Other Neuro History: down syndrome, unspecified dementia, spastic hemiplegia affecting left nondominate side Psychiatric History: Reports: Dementia, Other (See Below) Other Psychiatric History: down syndrome, unable to answer questions Endocrine/Metabolic History: Reports: Hypothyroidism Hematologic History: Reports: None Immunologic History: Reports: None Oncologic (Cancer) History: Reports: None Dermatologic History: Reports: Other (See Below) Other Dermatologic History: rosacea - Past Surgical History Head Surgeries/Procedures: Reports: None GI Surgical History: Reports: Cholecystectomy, Hernia, Inguinal Male Surgical History: Reports: None Social & Family History - Family History Family Medical History: No Pertinent Family History - Tobacco Use Tobacco Use Status *Q: Never Tobacco User - Caffeine Use Caffeine Use: Reports: None - Alcohol Use Alcohol Use History: No - Recreational Drug Use Recreational Drug Use: No - Sexual History Sexual History: Reports: None - Living Situation & Occupation Living situation: Reports: Single, Extended Care Facility Occupation: Disabled ED ROS GENERAL - Review of Systems Review Of Systems: Unable To Obtain Reason Not Obtained: pt non verbal at baseline with dementia ED EXAM, SEPSIS - Physical Exam Exam: See Below Exam Limited By: No Limitations General Appearance: Lethargic, Moderate Distress, Other (appears acutely ill. mildly diaphoretic. responsive to painful stimuli only) Ears: Normal External Exam Nose: Normal Inspection Throat/Mouth: Other (extremely dry mucous membranes) Head: Atraumatic, Normocephalic Neck: Normal Inspection Respiratory/Chest: No Accessory Muscle Use, Crackles, Rales (diffuse throughout bilateral lung pelaez) Cardiovascular: Regular Rate, Rhythm, No Edema, No JVD, No Murmur GI/Abdominal Exam: Soft, Non-Tender, Other (incontinent of bowel) (Male) Exam: Other (indwelling alegre catheter present. kanwal blood present in alegre bag) Rectal (Males) Exam: Deferred Neurological: Unresponsive Skin: Warm, Diaphoretic. No: Jaundice, Mottled, Rash Course - Orders/Labs/Meds Orders: Active Orders 24 hr Category Date Time Status Blood Pressure Mgt: Sepsis [RC] Q15MX2 Care 04/09/21 09:37 Active Cardiac Monitoring [RC] CONTINUOUS Care 04/09/21 09:38 Active EKG Documentation Completion [RC] ASDIRECTED Care 04/09/21 09:38 Active Overnight Pulse Oximetry [RC] Click to Edit Care 04/09/21 09:38 Active Oxygen Therapy, ED [RC] STAT Care 04/09/21 09:38 Active Chest 1V Frontal [CR] Stat Exams 04/09/21 09:37 Taken CULTURE BLOOD [BC] Stat Lab 04/09/21 09:47 Received CULTURE BLOOD [BC] Stat Lab 04/09/21 10:05 Received LACTIC ACID SEPSIS W/ REFLEX [LACTATE SEPSIS W/ REFLEX] Lab 04/09/21 13:30 Ordered [CHEM] Routine REFLEX LACTIC ACID YES OR NO [CHEM] Routine Lab 04/09/21 10:29 Received UA W/MICROSCOPIC [URIN] Stat Lab 04/09/21 09:37 Ordered Magnesium Sulfate/Water [Magnesium Sulfate in Water 2 Med 04/09/21 11:01 Active GM/50 ML] 2 gm Premix Bag 1 bag IV ONETIME Pharmacy to Dose - Vancomycin Med 04/09/21 09:45 Pending 1 dose .XX ASDIRECTED Potassium Chloride Riders [KCl in Water 10 MEQ/50 ML] Med 04/09/21 10:30 Active 10 meq Premix Bag 1 bag IV Q1H Sodium Chloride 0.9% [Saline Flush] Med 04/09/21 09:37 Active 10 ml FLUSH ASDIRECTED PRN Blood Culture x2 Reflex Set [OM.PC] Stat Oth 04/09/21 09:37 Ordered Pulse Oximetry Continuous Monitoring [OM.PC] Routine Oth 04/09/21 09:37 Ordered Saline Lock Insert [OM.PC] Stat Oth 04/09/21 09:37 Ordered Severe Sepsis Onset Time [OM.PC] Stat Oth 04/09/21 09:37 Ordered Medication Orders Potassium Chloride 10 meq/ (Premix) 50 mls @ 50 mls/hr IV Q1H GAVI Stop: 04/09/21 14:29 Magnesium Sulfate 2 gm/ Premix 50 mls @ 25 mls/hr IV ONETIME ONE Stop: 04/09/21 13:00 Sodium Chloride (Sodium Chloride 0.9% 10 Ml Syringe) 10 ml FLUSH ASDIRECTED PRN PRN Reason: Keep Vein Open Last Admin: 04/09/21 10:02 Dose: 10 ml Documented by: OMAR Vancomycin HCl (Pharmacy To Dose - Vancomycin) 1 dose .XX ASDIRECTED [facility] Labs: Laboratory Tests 04/09/21 04/09/21 04/09/21 Range/Units 09:47 09:47 09:47 WBC 28.4 H (4.0-10.2) K/uL RBC 5.44 H (4.33-5.41) M/uL Hgb 15.1 D (13.1-16.8) g/dL Hct 44.9 (39.0-49.0) % MCV 82.5 L (84.0-98.0) fL MCH 27.8 L (28.2-33.3) pg MCHC 33.6 (31.7-36.0) g/dL RDW 16.4 H (11.2-14.1) % Plt Count 378 H D (150-350) K/uL Neut % (Auto) 97.5 H (45.0-80.0) % Lymph % (Auto) 1.6 L (10.0-50.0) % Elmore % (Auto) 0.7 L (2.0-14.0) % Eos % (Auto) 0.1 (0.0-5.0) % Baso % (Auto) 0.1 (0.0-2.0) % Neut # (Auto) 27.65 H (1.40-7.00) K/uL Lymph # (Auto) 0.45 L (0.50-3.50) K/uL Elmore # (Auto) 0.19 (0.00-1.00) K/uL Eos # (Auto) 0.04 (0.00-0.50) K/uL Baso # (Auto) 0.04 (0.00-0.20) K/uL Sodium 141 (136-145) mmol/L Potassium 3.2 L (3.5-5.1) mmol/L Chloride 105 (98-107) mmol/L Carbon Dioxide 22.4 (21.0-32.0) mmol/L Anion Gap 16.8 H (7-15) meq/L BUN 13 (7-18) mg/dL Creatinine 1.26 H (0.51-1.17) mg/dL Est Cr Clr Drug Dosing TNP Estimated GFR (MDRD) 59 mL/min Glucose 93 (70-99) mg/dL Lactic Acid 4.5 H (0.4-2.0) mmol/L Calcium 8.7 (8.5-10.1) mg/dL Magnesium (1.8-2.4) mg/dL Total Bilirubin 0.9 (0.2-1.0) mg/dL AST 25 (15-37) U/L ALT 22 (12-78) U/L Alkaline Phosphatase 100 (46-116) IU/L Total Protein 7.7 (6.4-8.2) g/dL Albumin 2.6 L (3.4-5.0) g/dL 04/09/21 Range/Units 09:47 WBC (4.0-10.2) K/uL RBC (4.33-5.41) M/uL Hgb (13.1-16.8) g/dL Hct (39.0-49.0) % MCV (84.0-98.0) fL MCH (28.2-33.3) pg MCHC (31.7-36.0) g/dL RDW (11.2-14.1) % Plt Count (150-350) K/uL Neut % (Auto) (45.0-80.0) % Lymph % (Auto) (10.0-50.0) % Elmore % (Auto) (2.0-14.0) % Eos % (Auto) (0.0-5.0) % Baso % (Auto) (0.0-2.0) % Neut # (Auto) (1.40-7.00) K/uL Lymph # (Auto) (0.50-3.50) K/uL Elmore # (Auto) (0.00-1.00) K/uL Eos # (Auto) (0.00-0.50) K/uL Baso # (Auto) (0.00-0.20) K/uL Sodium (136-145) mmol/L Potassium (3.5-5.1) mmol/L Chloride (98-107) mmol/L Carbon Dioxide (21.0-32.0) mmol/L Anion Gap (7-15) meq/L BUN (7-18) mg/dL Creatinine (0.51-1.17) mg/dL Est Cr Clr Drug Dosing Estimated GFR (MDRD) mL/min Glucose (70-99) mg/dL Lactic Acid (0.4-2.0) mmol/L Calcium (8.5-10.1) mg/dL Magnesium 1.6 L (1.8-2.4) mg/dL Total Bilirubin (0.2-1.0) mg/dL AST (15-37) U/L ALT (12-78) U/L Alkaline Phosphatase (46-116) IU/L Total Protein (6.4-8.2) g/dL Albumin (3.4-5.0) g/dL Meds: Medications Generic Name Dose Route Start Last Admin Trade Name Freq PRN Reason Stop Dose Admin Potassium Chloride 10 meq/ 50 mls @ 50 mls/hr 04/09/21 10:30 Premix IV 04/09/21 14:29 Q1H GAVI Magnesium Sulfate 2 gm/ Premix 50 mls @ 25 mls/hr 04/09/21 11:01 IV 04/09/21 13:00 ONETIME ONE Sodium Chloride 10 ml 04/09/21 09:37 04/09/21 10:02 Sodium Chloride 0.9% 10 Ml Syringe FLUSH 10 ml ASDIRECTED PRN Administration Keep Vein Open Vancomycin HCl 1 dose 04/09/21 09:45 Pharmacy To Dose - Vancomycin .XX ASDIRECTED GAVI Discontinued Medications Generic Name Dose Route Start Last Admin Trade Name Freq PRN Reason Stop Dose Admin Ceftriaxone Sodium 2 gm 04/09/21 09:37 04/09/21 10:00 Ceftriaxone 2 Gm Vial IV 04/09/21 09:38 2 gm STAT ONE Administration Lactated Ringer's 1,000 mls @ 999 mls/hr 04/09/21 09:37 04/09/21 09:50 Ringers, Lactated IV 04/09/21 10:37 999 mls/hr BOLUS ONE Administration Protocol Vancomycin HCl 1 gm/ Sodium 250 mls @ 165 mls/hr 04/09/21 10:15 04/09/21 10:18 Chloride IV 04/09/21 11:45 165 mls/hr ONETIME ONE Administration - Re-Assessments/Exams Free Text/Narrative Re-Assessment/Exam: 04/09/21 09:44 sepsis order set initiated. pt febrile and hypotensive. 04/09/21 11:33 WBC elevated, Lactic acid elevated so repeat ordered for 4 hours. low K and Mg with IV supplementation ordered. IV LR starting 2nd liter. IV vanc and ceftriaxone started after parra culture. 04/09/21 12:36 2nd liter of LR in and pt still hypotensive with pressure 80s/40s. discussed with PO and will start maintenance fluids and trend LA but hold off on escalating care to presser support. alegre catheter changed out given large clot volume present. will admit to inpatient for further evaluation and treatment. Departure - Departure Time of Disposition: 11:56 Disposition: Admitted As Inpatient 66 Condition: Serious Clinical Impression: Systemic infection, Sepsis associated hypotension - Discharge Information *PRESCRIPTION DRUG MONITORING PROGRAM REVIEWED*: Not Applicable *COPY OF PRESCRIPTION DRUG MONITORING REPORT IN PATIENT GEOVANNA: Not Applicable ED Communication - Discussed Case With (1) Discussed Case With (1): Pt's POA/Guardian (contacted nephmargarita delvalle to update him on sepsis protocol initiation. no acute concerns or questions. DNR/DNI verified) - Problem List Review Problem List Initiated/Reviewed/Updated: Yes - My Orders Last 24 Hours: My Active Orders 04/09/21 09:37 Blood Pressure Mgt: Sepsis [RC] Q15MX2 Chest 1V Frontal [CR] Stat UA W/MICROSCOPIC [URIN] Stat Sodium Chloride 0.9% [Saline Flush] 10 ml FLUSH ASDIRECTED PRN Blood Culture x2 Reflex Set [OM.PC] Stat Pulse Oximetry Continuous Monitoring [OM.PC] Routine Saline Lock Insert [OM.PC] Stat Severe Sepsis Onset Time [OM.PC] Stat 04/09/21 09:38 Cardiac Monitoring [RC] CONTINUOUS EKG Documentation Completion [RC] ASDIRECTED Overnight Pulse Oximetry [RC] Click to Edit Oxygen Therapy, ED [RC] STAT 04/09/21 09:45 Pharmacy to Dose - Vancomycin 1 dose .XX ASDIRECTED 04/09/21 09:47 CULTURE BLOOD [BC] Stat 04/09/21 10:05 CULTURE BLOOD [BC] Stat 04/09/21 10:29 REFLEX LACTIC ACID YES OR NO [CHEM] Routine 04/09/21 10:30 Potassium Chloride Riders [KCl in Water 10 MEQ/50 ML] 10 meq Premix Bag 1 bag IV Q1H 04/09/21 11:01 Magnesium Sulfate/Water [Magnesium Sulfate in Water 2 GM/50 ML] 2 gm Premix Bag 1 bag IV ONETIME 04/09/21 13:30 LACTIC ACID SEPSIS W/ REFLEX [LACTATE SEPSIS W/ REFLEX] [CHEM] Routine - Assessment/Plan Admission H&P: Please use this note as an admission H&P Last 24 Hours: My Active Orders 04/09/21 09:37 Blood Pressure Mgt: Sepsis [RC] Q15MX2 Chest 1V Frontal [CR] Stat UA W/MICROSCOPIC [URIN] Stat Sodium Chloride 0.9% [Saline Flush] 10 ml FLUSH ASDIRECTED PRN Blood Culture x2 Reflex Set [OM.PC] Stat Pulse Oximetry Continuous Monitoring [OM.PC] Routine Saline Lock Insert [OM.PC] Stat Severe Sepsis Onset Time [OM.PC] Stat 04/09/21 09:38 Cardiac Monitoring [RC] CONTINUOUS EKG Documentation Completion [RC] ASDIRECTED Overnight Pulse Oximetry [RC] Click to Edit Oxygen Therapy, ED [RC] STAT 04/09/21 09:45 Pharmacy to Dose - Vancomycin 1 dose .XX ASDIRECTED 04/09/21 09:47 CULTURE BLOOD [BC] Stat 04/09/21 10:05 CULTURE BLOOD [BC] Stat 04/09/21 10:29 REFLEX LACTIC ACID YES OR NO [CHEM] Routine 04/09/21 10:30 Potassium Chloride Riders [KCl in Water 10 MEQ/50 ML] 10 meq Premix Bag 1 bag IV Q1H 04/09/21 11:01 Magnesium Sulfate/Water [Magnesium Sulfate in Water 2 GM/50 ML] 2 gm Premix Bag 1 bag IV ONETIME 04/09/21 13:30 LACTIC ACID SEPSIS W/ REFLEX [LACTATE SEPSIS W/ REFLEX] [CHEM] Routine Assessment:: Severe sepsis with acute organ dysfunction and hypotension likely UTI, complicated lactic acidosis 2/2 above AGMA likely secondary to lactic acidosis - febrile, WBX 28.4, lactic acid 4.5, creatinine 1.26 - sepsis protocol started in ED: large volume IVF (2L LR bolus), lactic acid with trend every 4 hrs until WNL, panculture, IV vanc and zosyn after cultures drawn - blood pressure continued to be hypotensive at 80s/40s despite 2L bolus. discussed with guardian and he opted for conservative management given overall poor quality of life. will avoid presser support and additional large volume bolus and will continue at 126mL/hr while watching LA trend Plan: - change alegre cathether given lack of urine return - continue broad spec IV abx while we wait for culture results - trend lactic acid. - continue LR at 126/hr as outlined above - telemetry hypokalemia: - K 3.2 - replace with 40mEq IV x1 Hypomagnesemia: - Mg 1.6 - replace with 2g IV x1 Neurogenic bladder with chronic indwelling alegre catheter - obstruction of urine outflow with clots - replace alegre catheter today CHRONIC CONDITIONS: pt currently on palliative care. continue home meds as ordered - acquired hypothyroidism - PVD - OA of multiple sites - Left hemiplegia - depression with anxiety - unspecified dementia without behavioral disturbance - downs syndrome - COPD per chart with no official PFTs on file Code status: DNR/DNI Discussed goals of care with guardian/POA. will continue palliative approach with middle of the line treatment. do not escalate to IV presser support or transfer to higher level of care. continue other current management. verified code status as DNR/DNI. discussed quality of life prior to presentation- which was very poor. will continue to update and adjust plan as treatment progresses.
[2021-04-09] MEDS: Sodium Chloride 0.9% 10 ML Syringe FLUSH PRN (10:02)
[2021-04-09 10:20] LABS: CHLORIDE,CL 105 mmol/L (98-107); SODIUM,NA 141 mmol/L (136-145)
[2021-04-09 10:29] LABS: ANION GAP 16.8 meq/L (7-15)
[2021-04-09] MEDS ORDERED: Lactated Ringers 1,000 ML IV SCH (11:00)
[2021-04-09] MEDS ORDERED: Magnesium Sulfate/Water 2 GM in Premix Bag 1 BAG IV ONE (11:01)
[2021-04-09] MEDS: Lactated Ringers 1,000 ML IV SCH ×2 (12:16→21:59)
[2021-04-09] MEDS ORDERED: Ondansetron 4 MG/2 ML SDV IVPUSH PRN (13:00)
[2021-04-09] MEDS ORDERED: Polyethylene Glycol 3350 Powder 17 GM Packet PO PRN (13:02)
[2021-04-09] MEDS: Potassium Chloride Riders 10 MEQ in Premix Bag 1 BAG IV SCH ×5 (15:08→18:33)
[2021-04-09] MEDS: Acetaminophen 650 MG Supp RECTAL PRN (15:14)
[2021-04-10] MEDS: Lactated Ringers 1,000 ML IV SCH ×3 (05:37→23:59)
[2021-04-10 07:58] LABS: CHLORIDE,CL 111 mmol/L (98-107); SODIUM,NA 144 mmol/L (136-145)
[2021-04-10 07:59] LABS: ANION GAP 9.7 meq/L (7-15)
[2021-04-10] MEDS: cefTRIAXone 2 GM Vial IVPUSH SCH (13:22)
[2021-04-10] MEDS: Sodium Chloride 0.9% 10 ML Syringe FLUSH PRN (13:32)
--- NOTE | 2021-04-10 13:46 | PCM.PN ---
- General Info Date of Service: 04/10/21 Subjective Update: remains cautiously stable and minimally responsive Functional Status: Denies: New Symptoms - Review of Systems Systems Review Comment:: unable to complete 2/2 dementia and nonresponsive status - Patient Data Vitals - Most Recent: Last Vital Signs Temp 98.2 F 04/10/21 11:00 Pulse 95 04/10/21 13:25 Resp 18 04/10/21 13:25 BP 85/55 L 04/10/21 13:25 Pulse Ox 95 04/10/21 13:25 Weight - Most Recent: 114 lb I&O - Last 24 Hours: Intake & Output 04/09/21 04/10/21 04/10/21 22:59 06:59 14:59 Intake Total 2398 1250 Output Total 300 Balance 2398 1250 -300 Lab Results Last 24 Hours: Laboratory Results - last 24 hr 04/09/21 04/10/21 04/10/21 Range/Units 13:53 07:12 07:12 WBC 8.3 (4.0-10.2) K/uL RBC 4.24 L (4.33-5.41) M/uL Hgb 11.8 L D (13.1-16.8) g/dL Hct 36.0 L (39.0-49.0) % MCV 84.9 (84.0-98.0) fL MCH 27.8 L (28.2-33.3) pg MCHC 32.8 (31.7-36.0) g/dL RDW 16.4 H (11.2-14.1) % Plt Count 247 D (150-350) K/uL MPV 9.40 (7.00-11.50) fL Sodium 144 (136-145) mmol/L Potassium 3.6 (3.5-5.1) mmol/L Chloride 111 H (98-107) mmol/L Carbon Dioxide 26.9 (21.0-32.0) mmol/L Anion Gap 9.7 (7-15) meq/L BUN 11 (7-18) mg/dL Creatinine 0.91 (0.51-1.17) mg/dL Est Cr Clr Drug Dosing 73.82 mL/min Estimated GFR (MDRD) > 60 mL/min Glucose 91 (70-99) mg/dL Lactic Acid 1.0 (0.4-2.0) mmol/L Calcium 8.0 L (8.5-10.1) mg/dL Magnesium 2.2 (1.8-2.4) mg/dL Total Bilirubin 0.4 (0.2-1.0) mg/dL AST 25 (15-37) U/L ALT 20 (12-78) U/L Alkaline Phosphatase 74 (46-116) IU/L Total Protein 6.0 L (6.4-8.2) g/dL Albumin 1.9 L (3.4-5.0) g/dL Miles Results Last 24 Hours: Microbiology 04/09/21 10:05 Aerobic Blood Culture - Preliminary Blood - Venous - Lab Draw NO GROWTH AFTER 1 DAY Anaerobic Blood Culture - Preliminary NO GROWTH AFTER 1 DAY 04/09/21 09:47 Aerobic Blood Culture - Preliminary Blood - Venous NO GROWTH AFTER 1 DAY Anaerobic Blood Culture - Preliminary Gram Positive Cocci Med Orders - Current: Current Medications Acetaminophen (Acetaminophen 650 Mg Supp) 650 mg RECTAL Q4H PRN PRN Reason: Pain (mild 1-3) Last Admin: 04/09/21 15:14 Dose: 650 mg Documented by: Ceftriaxone Sodium (Ceftriaxone 2 Gm Vial) 2 gm IVPUSH Q24H [facility] Last Admin: 04/10/21 13:22 Dose: 2 gm Documented by: Lactated Ringer's (Ringers, Lactated) 1,000 mls @ 126 mls/hr IV ASDIRECTED [facility] Last Admin: 04/10/21 05:37 Dose: 126 mls/hr Documented by: Vancomycin HCl 750 mg/ Sodium (Chloride) 250 mls @ 250 mls/hr IV Q12H [facility] Last Admin: 04/10/21 09:41 Dose: 250 mls/hr Documented by: Ondansetron HCl (Ondansetron 4 Mg/2 Ml Sdv) 4 mg IVPUSH Q4H PRN PRN Reason: Nausea/Vomiting Polyethylene Glycol (Polyethylene Glycol 3350 Powder 17 Gm Packet) 17 gm PO DAILY PRN PRN Reason: Constipation Sodium Chloride (Sodium Chloride 0.9% 10 Ml Syringe) 10 ml FLUSH ASDIRECTED PRN PRN Reason: Keep Vein Open Last Admin: 04/10/21 13:32 Dose: 10 ml Documented by: Vancomycin HCl (Pharmacy To Dose - Vancomycin) 1 dose .XX ASDIRECTED [facility] Discontinued Medications Ceftriaxone Sodium (Ceftriaxone 2 Gm Vial) 2 gm IV STAT ONE Stop: 04/09/21 09:38 Last Admin: 04/09/21 10:00 Dose: 2 gm Documented by: Lactated Ringer's (Ringers, Lactated) 1,000 mls @ 999 mls/hr IV BOLUS ONE; Protocol Stop: 04/09/21 10:37 Last Admin: 04/09/21 09:50 Dose: 999 mls/hr Documented by: Vancomycin HCl 1 gm/ Sodium (Chloride) 250 mls @ 165 mls/hr IV ONETIME ONE Stop: 04/09/21 11:45 Last Admin: 04/09/21 10:18 Dose: 165 mls/hr Documented by: Potassium Chloride 10 meq/ (Premix) 50 mls @ 50 mls/hr IV Q1H [facility] Stop: 04/09/21 14:29 Last Admin: 04/09/21 15:56 Dose: Not Given Documented by: Magnesium Sulfate 2 gm/ Premix 50 mls @ 25 mls/hr IV ONETIME ONE Stop: 04/09/21 13:00 Last Admin: 04/09/21 12:41 Dose: 25 mls/hr Documented by: Lactated Ringer's (Ringers, Lactated) 1,000 mls @ 999 mls/hr IV ASDIRECTED [facility] Last Admin: 04/09/21 11:00 Dose: 999 mls/hr Documented by: Potassium Chloride 10 meq/ (Premix) 50 mls @ 50 mls/hr IV Q1H [facility] Stop: 04/09/21 18:59 Last Admin: 04/09/21 18:33 Dose: 50 mls/hr Documented by: - Exam Quality Assessment: Supplemental Oxygen, Urine Catheter, DVT Prophylaxis. No: Central Line/PICC, Skin Breakdown Urinary Catheter Total Time: 0Days 20Hours General: No Acute Distress, Other (smnolent. oriented x0. baseline) HEENT: Pupils Reactive, Mucous Membr. Moist/[place] Neck: Supple, No JVD Lungs: Clear to Auscultation. No: Crackles, Rales, Rub, Wheezing Cardiovascular: Regular Rate, Regular Rhythm, No Murmurs GI/Abdominal Exam: Soft, Non-Tender (Male) Exam: Other (alegre catheter present. pink tinged urine present) Extremities: No Pedal Edema, Normal Capillary Refill Skin: Warm, Dry, Intact Neurological: No New Focal Deficit - Patient Data Lab Results Last 24 hrs: Laboratory Results - last 24 hr 04/09/21 04/10/21 04/10/21 Range/Units 13:53 07:12 07:12 WBC 8.3 (4.0-10.2) K/uL RBC 4.24 L (4.33-5.41) M/uL Hgb 11.8 L D (13.1-16.8) g/dL Hct 36.0 L (39.0-49.0) % MCV 84.9 (84.0-98.0) fL MCH 27.8 L (28.2-33.3) pg MCHC 32.8 (31.7-36.0) g/dL RDW 16.4 H (11.2-14.1) % Plt Count 247 D (150-350) K/uL MPV 9.40 (7.00-11.50) fL Sodium 144 (136-145) mmol/L Potassium 3.6 (3.5-5.1) mmol/L Chloride 111 H (98-107) mmol/L Carbon Dioxide 26.9 (21.0-32.0) mmol/L Anion Gap 9.7 (7-15) meq/L BUN 11 (7-18) mg/dL Creatinine 0.91 (0.51-1.17) mg/dL Est Cr Clr Drug Dosing 73.82 mL/min Estimated GFR (MDRD) > 60 mL/min Glucose 91 (70-99) mg/dL Lactic Acid 1.0 (0.4-2.0) mmol/L Calcium 8.0 L (8.5-10.1) mg/dL Magnesium 2.2 (1.8-2.4) mg/dL Total Bilirubin 0.4 (0.2-1.0) mg/dL AST 25 (15-37) U/L ALT 20 (12-78) U/L Alkaline Phosphatase 74 (46-116) IU/L Total Protein 6.0 L (6.4-8.2) g/dL Albumin 1.9 L (3.4-5.0) g/dL Result Diagrams: 04/10/21 07:12 04/10/21 07:12 Miles Results Last 24 hrs: Microbiology 04/09/21 10:05 Aerobic Blood Culture - Preliminary Blood - Venous - Lab Draw NO GROWTH AFTER 1 DAY Anaerobic Blood Culture - Preliminary NO GROWTH AFTER 1 DAY 04/09/21 09:47 Aerobic Blood Culture - Preliminary Blood - Venous NO GROWTH AFTER 1 DAY Anaerobic Blood Culture - Preliminary Gram Positive Cocci Sepsis Event Note - Evaluation Sepsis Screening Result: No Definite Risk - Focused Exam Vital Signs: Vital Signs Temp Pulse Resp BP Pulse Ox 04/10/21 13:25 95 18 85/55 L 95 04/10/21 11:00 98.2 F 95 18 88/52 L 97 04/10/21 08:00 98 F 82 16 106/58 L 97 04/10/21 07:45 99.1 F 20 93 L 04/10/21 07:30 95 04/10/21 07:20 99.1 F 97 20 91/50 L 96 04/10/21 06:00 99.2 F 93 18 89/53 L 04/10/21 05:00 99.4 F 102 H 18 83/62 L 98 04/10/21 04:00 99.2 F 89 14 78/44 L 98 04/10/21 03:00 99.3 F 87 18 65/41 L 95 - Problem List Review Problem List Initiated/Reviewed/Updated: Yes - My Orders Last 24 Hours: My Active Orders 04/09/21 13:00 Acetaminophen [Tylenol] 650 mg RECTAL Q4H PRN Ondansetron [Zofran] 4 mg IVPUSH Q4H PRN 04/09/21 13:02 Patient Status [ADT] Routine Bedrest Bedside Commode [RC] .PRN Height and Weight [RC] DAILY Oxygen Therapy [RC] 2300 VTE/DVT Education [RC] DAILY polyethylene glycoL 3350 [MiraLAX] 17 gm PO DAILY PRN Resuscitation Status Routine 04/09/21 13:06 Intake and Output [RC] 06,18 Sequential Compression Device [OM.PC] Per Unit Routine 04/09/21 13:08 Antiembolic Devices [RC] .PRN 04/09/21 22:00 Vancomycin 750 mg Sodium Chloride 0.9% [Normal Saline AdvBag] 250 ml IV Q12H 04/10/21 02:00 Vital Signs [RC] Q2H 04/10/21 07:56 Renew/Continue Urinary Catheter [OM.PC] Routine 04/10/21 12:00 cefTRIAXone [Rocephin] 2 gm IVPUSH Q24H 04/11/21 09:30 VANCOMYCIN TROUGH [CHEM] Timed - Assessment Assessment:: Severe sepsis with acute organ dysfunction and hypotension likely UTI, complicated lactic acidosis 2/2 above AGMA likely secondary to lactic acidosis gram positive bacteremia - febrile, WBX 28.4, lactic acid 4.5, creatinine 1.26 - sepsis protocol started in ED: large volume IVF (2L LR bolus), lactic acid with trend every 4 hrs until WNL, panculture, IV vanc and zosyn after cultures drawn - blood pressure continued to be hypotensive at 80s/40s despite 2L bolus. discussed with guardian and he opted for conservative management given overall poor quality of life. will avoid presser support and additional large volume bolus and will continue at 126mL/hr while watching LA trend - blood culture positive for gram positive cocci Plan: - continue broad spec IV abx (vanc and zosyn) while we wait for culture results - continue LR at 126/hr as outlined above - telemetry - do not escalate care without discussion with POA emil. hypokalemia: - K 3.2 on admit, replaced with 40mEq IV x1 - recheck early am Hypomagnesemia: - Mg 1.6 on admit, replaced with 2g IV x1 - recheck early am Neurogenic bladder with chronic indwelling alegre catheter - obstruction of urine outflow with clots - replace alegre catheter 04/09/21 CHRONIC CONDITIONS: pt currently on palliative care. continue home meds as ordered - acquired hypothyroidism - PVD - OA of multiple sites - Left hemiplegia - depression with anxiety - unspecified dementia without behavioral disturbance - downs syndrome - COPD per chart with no official PFTs on file Code status: DNR/DNI DVT prophylaxis: subQ lovenox MDM/interval history: remained relatively stable overnight. SBP down to 78 at one point. per discussion with Emil (POA) we will not escalate cares beyond current management and will plan to discuss any changes we would like to make prior so that decision can be made to either continue or change goal of care to comfort only. Sher is currently following with palliative care as an outpatient but has not been thought to be end of life or ready for hospice yet. blood cultures positive today. continue current broad spec abx. repeat cultures today.
[2021-04-10] MEDS: Acetaminophen 650 MG Supp RECTAL PRN (22:14)
[2021-04-11] MEDS: Lactated Ringers 1,000 ML IV SCH ×2 (07:50→17:26)
[2021-04-11 09:05] LABS: CHLORIDE,CL 108 mmol/L (98-107); SODIUM,NA 143 mmol/L (136-145)
[2021-04-11 09:06] LABS: ANION GAP 10.6 meq/L (7-15)
[2021-04-11] MEDS ORDERED: Sodium Chloride 0.9% 1,000 ML IV ONE (11:06)
[2021-04-11] MEDS: cefTRIAXone 2 GM Vial IVPUSH SCH (11:10)
[2021-04-11] MEDS ORDERED: Piperacillin/Tazobactam 3.375 GM in Sodium Chloride 0.9% 100 ML IV SCH (12:00)
--- NOTE | 2021-04-11 12:24 | PCM.PN ---
- General Info Date of Service: 04/11/21 Admission Dx/Problem (Free Text): Admitted for treatment of severe sepsis, suspected secondary to UTI. Low Mag and K. Subjective Update: Patient awake, watching TV. Makes eye contact when directly spoken to. Functional Status: Reports: Other (Does not respond verbally/physically during exam). Denies: New Symptoms - Review of Systems General: Reports: Other (Unable to obtain ROS as patient is nonresponsive verbally/does not communicate with caregivers) - Patient Data Vitals - Most Recent: Last Vital Signs Temp 36.6 C 04/11/21 11:00 Pulse 75 04/11/21 11:00 Resp 18 04/11/21 11:00 BP 89/58 L 04/11/21 11:00 Pulse Ox 95 04/11/21 11:00 Weight - Most Recent: 53.977 kg I&O - Last 24 Hours: Intake & Output 04/10/21 04/11/21 04/11/21 22:59 06:59 14:59 Intake Total 1295 1247 621 Output Total 550 400 Balance 745 847 621 Lab Results Last 24 Hours: Laboratory Results - last 24 hr 04/11/21 04/11/21 Range/Units 08:40 08:40 WBC 7.1 (4.0-10.2) K/uL RBC 4.70 (4.33-5.41) M/uL Hgb 13.2 (13.1-16.8) g/dL Hct 39.9 (39.0-49.0) % MCV 84.9 (84.0-98.0) fL MCH 28.1 L (28.2-33.3) pg MCHC 33.1 (31.7-36.0) g/dL RDW 16.5 H (11.2-14.1) % Plt Count 231 (150-350) K/uL MPV 9.80 (7.00-11.50) fL Sodium 143 (136-145) mmol/L Potassium 3.3 L (3.5-5.1) mmol/L Chloride 108 H (98-107) mmol/L Carbon Dioxide 27.7 (21.0-32.0) mmol/L Anion Gap 10.6 (7-15) meq/L BUN 7 (7-18) mg/dL Creatinine 0.79 (0.51-1.17) mg/dL Est Cr Clr Drug Dosing 80.66 mL/min Estimated GFR (MDRD) > 60 mL/min Glucose 82 (70-99) mg/dL Calcium 8.0 L (8.5-10.1) mg/dL Miles Results Last 24 Hours: Microbiology 04/09/21 10:05 Aerobic Blood Culture - Preliminary Blood - Venous - Lab Draw NO GROWTH AFTER 2 DAYS Anaerobic Blood Culture - Preliminary NO GROWTH AFTER 2 DAYS 04/09/21 09:47 Aerobic Blood Culture - Preliminary Blood - Venous Gram Positive Rods Anaerobic Blood Culture - Preliminary Gram Positive Cocci Med Orders - Current: Current Medications Acetaminophen (Acetaminophen 650 Mg Supp) 650 mg RECTAL Q4H PRN PRN Reason: Pain (mild 1-3) Last Admin: 04/10/21 22:14 Dose: 650 mg Documented by: Ceftriaxone Sodium (Ceftriaxone 2 Gm Vial) 2 gm IVPUSH Q24H [facility] Last Admin: 04/11/21 11:10 Dose: 2 gm Documented by: Lactated Ringer's (Ringers, Lactated) 1,000 mls @ 126 mls/hr IV ASDIRECTED [facility] Last Admin: 04/11/21 07:50 Dose: 126 mls/hr Documented by: Sodium Chloride (Normal Saline) 1,000 mls @ 500 mls/hr IV .BOLUS ONE Stop: 04/11/21 13:05 Last Admin: 04/11/21 11:22 Dose: 500 mls/hr Documented by: Ondansetron HCl (Ondansetron 4 Mg/2 Ml Sdv) 4 mg IVPUSH Q4H PRN PRN Reason: Nausea/Vomiting Polyethylene Glycol (Polyethylene Glycol 3350 Powder 17 Gm Packet) 17 gm PO DAILY PRN PRN Reason: Constipation Sodium Chloride (Sodium Chloride 0.9% 10 Ml Syringe) 10 ml FLUSH ASDIRECTED PRN PRN Reason: Keep Vein Open Last Admin: 04/10/21 13:32 Dose: 10 ml Documented by: Discontinued Medications Ceftriaxone Sodium (Ceftriaxone 2 Gm Vial) 2 gm IV STAT ONE Stop: 04/09/21 09:38 Last Admin: 04/09/21 10:00 Dose: 2 gm Documented by: Lactated Ringer's (Ringers, Lactated) 1,000 mls @ 999 mls/hr IV BOLUS ONE; Protocol Stop: 04/09/21 10:37 Last Admin: 04/09/21 09:50 Dose: 999 mls/hr Documented by: Vancomycin HCl 1 gm/ Sodium (Chloride) 250 mls @ 165 mls/hr IV ONETIME ONE Stop: 04/09/21 11:45 Last Admin: 04/09/21 10:18 Dose: 165 mls/hr Documented by: Potassium Chloride 10 meq/ (Premix) 50 mls @ 50 mls/hr IV Q1H [facility] Stop: 04/09/21 14:29 Last Admin: 04/09/21 15:56 Dose: Not Given Documented by: Magnesium Sulfate 2 gm/ Premix 50 mls @ 25 mls/hr IV ONETIME ONE Stop: 04/09/21 13:00 Last Admin: 04/09/21 12:41 Dose: 25 mls/hr Documented by: Lactated Ringer's (Ringers, Lactated) 1,000 mls @ 999 mls/hr IV ASDIRECTED [facility] Last Admin: 04/09/21 11:00 Dose: 999 mls/hr Documented by: Potassium Chloride 10 meq/ (Premix) 50 mls @ 50 mls/hr IV Q1H [facility] Stop: 04/09/21 18:59 Last Admin: 04/09/21 18:33 Dose: 50 mls/hr Documented by: Vancomycin HCl 750 mg/ Sodium (Chloride) 250 mls @ 250 mls/hr IV Q12H [facility] Last Admin: 04/10/21 21:34 Dose: 250 mls/hr Documented by: Vancomycin HCl (Pharmacy To Dose - Vancomycin) 1 dose .XX ASDIRECTED [facility] - Exam Quality Assessment: DVT Prophylaxis Urinary Catheter Total Time: 1Days 19Hours General: Alert HEENT: Pupils Equal, Pupils Reactive, EOMI, Mucous Membr. Moist/[place] Lungs: Clear to Auscultation, Normal Respiratory Effort Cardiovascular: Regular Rate, Regular Rhythm GI/Abdominal Exam: Soft, Non-Tender, No Distention (Male) Exam: Deferred Back Exam: No: Muscle Spasm Extremities: Non-Tender, Normal Capillary Refill Skin: Warm, Dry Neurological: No New Focal Deficit Psy/Mental Status: Other (awake, watching TV) - Patient Data Lab Results Last 24 hrs: Laboratory Results - last 24 hr 04/11/21 04/11/21 Range/Units 08:40 08:40 WBC 7.1 (4.0-10.2) K/uL RBC 4.70 (4.33-5.41) M/uL Hgb 13.2 (13.1-16.8) g/dL Hct 39.9 (39.0-49.0) % MCV 84.9 (84.0-98.0) fL MCH 28.1 L (28.2-33.3) pg MCHC 33.1 (31.7-36.0) g/dL RDW 16.5 H (11.2-14.1) % Plt Count 231 (150-350) K/uL MPV 9.80 (7.00-11.50) fL Sodium 143 (136-145) mmol/L Potassium 3.3 L (3.5-5.1) mmol/L Chloride 108 H (98-107) mmol/L Carbon Dioxide 27.7 (21.0-32.0) mmol/L Anion Gap 10.6 (7-15) meq/L BUN 7 (7-18) mg/dL Creatinine 0.79 (0.51-1.17) mg/dL Est Cr Clr Drug Dosing 80.66 mL/min Estimated GFR (MDRD) > 60 mL/min Glucose 82 (70-99) mg/dL Calcium 8.0 L (8.5-10.1) mg/dL Result Diagrams: 04/11/21 08:40 04/11/21 08:40 Miles Results Last 24 hrs: Microbiology 04/09/21 10:05 Aerobic Blood Culture - Preliminary Blood - Venous - Lab Draw NO GROWTH AFTER 2 DAYS Anaerobic Blood Culture - Preliminary NO GROWTH AFTER 2 DAYS 04/09/21 09:47 Aerobic Blood Culture - Preliminary Blood - Venous Gram Positive Rods Anaerobic Blood Culture - Preliminary Gram Positive Cocci Sepsis Event Note - Evaluation Sepsis Screening Result: No Definite Risk - Focused Exam Vital Signs: Vital Signs Temp Pulse Resp BP Pulse Ox Pulse Ox 04/11/21 11:00 36.6 C 75 18 89/58 L 95 04/11/21 09:00 36.8 C 75 18 90/55 L 97 04/11/21 07:53 96 04/11/21 07:00 36.2 C 77 14 93/56 L 99 04/11/21 05:00 36.6 C 83 18 91/58 L 96 12/10/21 03:00 36.5 C 96 18 124/75 94 L 04/11/21 01:00 36.6 C 84 18 88/59 L 95 - Problem List & Annotations (1) Sepsis with acute organ dysfunction SNOMED Code(s): 78302276 Code(s): A41.9 - SEPSIS, UNSPECIFIED ORGANISM; R65.20 - SEVERE SEPSIS WITHOUT SEPTIC SHOCK Status: Acute Priority: High Current Visit: Yes Onset Date: ~04/09/21 Qualifiers: Sepsis type: Escherichia coli Severe sepsis acute organ dysfunction type: acute renal failure Acute renal failure type: unspecified Severe sepsis shock status: unspecified Qualified Code(s): A41.51 - Sepsis due to Escherichia coli [E. coli]; R65.20 - Severe sepsis without septic shock; N17.9 - Acute kidney failure, unspecified Annotation/Comment:: Suspect secondary to UTI. Patient has chronic indwelling Alegre. Blood culture + for E.Coli. Sensitivity pending. Switched to Rocephin today. Patient noted to have frequent episodes of hypotension and this was felt to be secondary to acute sepsis. Low BP measurements have continued despite patient's improving overall status/decreased white count. Call placed to [facility] and staff queried as to patient's usual BPs at that facility. We were informed that this range is normal for him and that he usually runs quite low. (2) Chronic hypotension SNOMED Code(s): 88085807 Code(s): I95.89 - OTHER HYPOTENSION Status: Chronic Priority: Medium Current Visit: Yes Annotation/Comment:: See above. Patient has chronic asymptomatic hypotension per [facility]. (3) Hypokalemia SNOMED Code(s): 42447574 Code(s): E87.6 - HYPOKALEMIA Status: Acute Priority: Low Current Visit: Yes Annotation/Comment:: Potassium replacement initiated. Noted to be low again today. Continue replacement/recheck level in AM (4) Hypomagnesemia SNOMED Code(s): 497770281 Code(s): E83.42 - HYPOMAGNESEMIA Status: Resolved Priority: Medium Current Visit: Yes Annotation/Comment:: Patient's level resonded well to IV Magnesium replacement. (5) Lactic acid blood increased SNOMED Code(s): 4057430 Code(s): R79.89 - OTHER SPECIFIED ABNORMAL FINDINGS OF BLOOD CHEMISTRY Status: Suspected Priority: High Current Visit: No Onset Date: ~04/09/21 Annotation/Comment:: Normalized after initiation of sepsis treatment. (6) Comfort measures only status SNOMED Code(s): 46065688004505 Code(s): Z51.5 - ENCOUNTER FOR PALLIATIVE CARE Status: Chronic Priority: High Current Visit: Yes Annotation/Comment:: Confirmed by POA. Conservative management. (7) Down syndrome SNOMED Code(s): 55990788 Code(s): Q90.9 - DOWN SYNDROME, UNSPECIFIED Status: Chronic Priority: Low Current Visit: No Annotation/Comment:: Associated dementia/cognitive deficits. Dementia and general weakness/less activity has been progressive over recent years per family. Symptoms stable during this hospitalization. (8) Mixed anxiety depressive disorder SNOMED Code(s): 320292252 Code(s): F41.8 - OTHER SPECIFIED ANXIETY DISORDERS Status: Chronic Priority: Medium Current Visit: No Annotation/Comment:: Stable during this hospitalization. Continue home medication (9) Osteoarthritis SNOMED Code(s): 872432337 Code(s): M19.90 - UNSPECIFIED OSTEOARTHRITIS, UNSPECIFIED SITE Status: Chronic Priority: Low Current Visit: No Qualifiers: Osteoarthritis location: multiple joints Osteoarthritis type: primary Qualified Code(s): M15.9 - Polyosteoarthritis, unspecified Annotation/Comment:: Stable during this hospitalization. (10) Peripheral vascular disease SNOMED Code(s): 206668407 Code(s): I73.9 - PERIPHERAL VASCULAR DISEASE, UNSPECIFIED Status: Chronic Priority: Low Current Visit: No Annotation/Comment:: Suspect given dermal changes observed in both lower extremities. Has no formal diagnosis listed. Giv en patient's comfort care status no further evaluation will be performed at this time. (11) Spastic hemiplegia affecting left nondominant side SNOMED Code(s): 494347156564179 Code(s): G81.14 - SPASTIC HEMIPLEGIA AFFECTING LEFT NONDOMINANT SIDE Status: Chronic Priority: Medium Current Visit: No Qualifiers: Hemiplegia etiology: unspecified etiology Qualified Code(s): G81.14 - Spastic hemiplegia affecting left nondominant side Annotation/Comment:: Stable during this hospitalization. (12) Chronic indwelling Alegre catheter SNOMED Code(s): 952845102 Code(s): Z97.8 - PRESENCE OF OTHER SPECIFIED DEVICES Status: Chronic Priority: Medium Current Visit: Yes Annotation/Comment:: Hx neurogenic bladder - Problem List Review Problem List Initiated/Reviewed/Updated: Yes - My Orders Last 24 Hours: My Active Orders 04/11/21 11:06 UA RFX MILES AND CULT IF INDIC [URIN] Routine Sodium Chloride 0.9% [Normal Saline] 1,000 ml IV .BOLUS 04/11/21 12:06 Communication Order [RC] ROUTINE - Assessment Assessment:: 04/10/21 Severe sepsis with acute organ dysfunction and hypotension likely UTI, complicated lactic acidosis 2/2 above AGMA likely secondary to lactic acidosis gram positive bacteremia - febrile, WBX 28.4, lactic acid 4.5, creatinine 1.26 - sepsis protocol started in ED: large volume IVF (2L LR bolus), lactic acid with trend every 4 hrs until WNL, panculture, IV vanc and zosyn after cultures drawn - blood pressure continued to be hypotensive at 80s/40s despite 2L bolus. discussed with guardian and he opted for conservative management given overall p oor quality of life. will avoid presser support and additional large volume bolus and will continue at 126mL/hr while watching LA trend - blood culture positive for gram positive cocci Plan: - continue broad spec IV abx (vanc and zosyn) while we wait for culture results - continue LR at 126/hr as outlined above - telemetry - do not escalate care without discussion with POA emil. hypokalemia: - K 3.2 on admit, replaced with 40mEq IV x1 - recheck early am Hypomagnesemia: - Mg 1.6 on admit, replaced with 2g IV x1 - recheck early am Neurogenic bladder with chronic indwelling alegre catheter - obstruction of urine outflow with clots - replace alegre catheter 04/09/21 CHRONIC CONDITIONS: pt currently on palliative care. continue home meds as ordered - acquired hypothyroidism - PVD - OA of multiple sites - Left hemiplegia - depression with anxiety - unspecified dementia without behavioral disturbance - downs syndrome - COPD per chart with no official PFTs on file Code status: DNR/DNI DVT prophylaxis: subQ lovenox MDM/interval history: remained relatively stable overnight. SBP down to 78 at one point. per discussion with Emil (POA) we will not escalate cares beyond current management and will plan to discuss any changes we would like to make prior so that decision can be made to either continue or change goal of care to comfort only. Sher is currently following with palliative care as an outpatient but has not been thought to be end of life or ready for hospice yet. blood cul tures positive today. continue current broad spec abx. repeat cultures today 04/11/21 as above. Repeat cultures pending. Switched to Rocephin. WBC improved. Afebrile. - Plan Plan:: as above. If patient continues to do well anticipate discharge back to [facility] once blood cultures negative for 72 hours.
[2021-04-11] MEDS ORDERED: Potassium Bicarbonate/Cit Ac 20 MEQ Effervescent Tab PO ONE (12:53)
[2021-04-12] MEDS: Lactated Ringers 1,000 ML IV SCH ×2 (06:44→21:51)
[2021-04-12 09:02] LABS: CHLORIDE,CL 109 mmol/L (98-107); SODIUM,NA 142 mmol/L (136-145)
[2021-04-12] MEDS ORDERED: Potassium Bicarbonate/Cit Ac 20 MEQ Effervescent Tab PO ONE ×3 (10:00→20:00)
[2021-04-12 10:06] LABS: ANION GAP 7.4 meq/L (7-15)
[2021-04-12] MEDS: cefTRIAXone 2 GM Vial IVPUSH SCH (12:56)
--- NOTE | 2021-04-12 17:43 | PCM.PN ---
- General Info Date of Service: 04/12/21 Admission Dx/Problem (Free Text): Admitted for treatment of severe sepsis, suspected secondary to UTI. Low Mag and K. Subjective Update: Patient awake, watching TV. Makes eye contact when directly spoken to. Functional Status: Reports: Pain Controlled, Tolerating Diet. Denies: New Symptoms - Review of Systems General: Reports: Other (unable to perform ROS as patient is not able to communicate). Denies: Fever - Patient Data Vitals - Most Recent: Last Vital Signs Temp 36.6 C 04/12/21 16:00 Pulse 81 04/12/21 16:00 Resp 14 04/12/21 16:00 BP 105/59 L 04/12/21 16:00 Pulse Ox 97 04/12/21 16:00 Weight - Most Recent: 53.977 kg I&O - Last 24 Hours: Intake & Output 04/12/21 04/12/21 04/12/21 06:59 14:59 22:59 Intake Total 915 200 Output Total 1175 550 825 Balance -260 -350 -825 Lab Results Last 24 Hours: Laboratory Results - last 24 hr 04/12/21 04/12/21 04/12/21 Range/Units 04:10 08:30 09:45 WBC 6.1 (4.0-10.2) K/uL RBC 4.58 (4.33-5.41) M/uL Hgb 12.9 L (13.1-16.8) g/dL Hct 38.6 L (39.0-49.0) % MCV 84.3 (84.0-98.0) fL MCH 28.2 (28.2-33.3) pg MCHC 33.4 (31.7-36.0) g/dL RDW 16.1 H (11.2-14.1) % Plt Count 224 (150-350) K/uL Neut % (Auto) 68.8 (45.0-80.0) % Lymph % (Auto) 22.1 (10.0-50.0) % [place] % (Auto) 7.3 (2.0-14.0) % Eos % (Auto) 1.5 (0.0-5.0) % Baso % (Auto) 0.3 (0.0-2.0) % Neut # (Auto) 4.16 (1.40-7.00) K/uL Lymph # (Auto) 1.34 (0.50-3.50) K/uL [place] # (Auto) 0.44 (0.00-1.00) K/uL Eos # (Auto) 0.09 (0.00-0.50) K/uL Baso # (Auto) 0.02 (0.00-0.20) K/uL Sodium 142 (136-145) mmol/L Potassium 3.3 L (3.5-5.1) mmol/L Chloride 109 H (98-107) mmol/L Carbon Dioxide 28.9 (21.0-32.0) mmol/L Anion Gap 7.4 (7-15) meq/L BUN 5 L (7-18) mg/dL Creatinine 0.70 (0.51-1.17) mg/dL Est Cr Clr Drug Dosing 91.03 mL/min Estimated GFR (MDRD) > 60 mL/min Glucose 91 (70-99) mg/dL Calcium 8.2 L (8.5-10.1) mg/dL Specimen Type Urinvoid Urine Color Light yellow Urine Appearance Clear Urine pH 7.0 (5.0-9.0) Ur Specific [place] 1.020 (1.005-1.030) Urine Protein Negative (NEGATIVE) mg/dL Urine Glucose (UA) Negative (NEGATIVE) mg/dL Urine Ketones 15 H (NEGATIVE) mg/dL Urine Occult Blood Trace-intact H (NEGATIVE) Urine Nitrite Negative (NEGATIVE) Urine Bilirubin Negative (NEGATIVE) Urine Urobilinogen 0.2 (0.2-1.0) E.U./dL Ur Leukocyte Esterase Small H (NEGATIVE) Urine RBC 0-5 /HPF Urine WBC 20-30 H /HPF Ur Epithelial Cells Rare /LPF Urine Bacteria Few (NONE TO FEW) /HPF Miles Results Last 24 Hours: Microbiology 04/11/21 08:51 Aerobic Blood Culture - Preliminary Blood - Venous - Lab Draw NO GROWTH AFTER 1 DAY Anaerobic Blood Culture - Preliminary NO GROWTH AFTER 1 DAY 04/11/21 08:40 Aerobic Blood Culture - Preliminary Blood - Venous NO GROWTH AFTER 1 DAY Anaerobic Blood Culture - Preliminary NO GROWTH AFTER 1 DAY 04/10/21 14:05 Aerobic Blood Culture - Preliminary Blood - Venous - Lab Draw NO GROWTH AFTER 2 DAYS Anaerobic Blood Culture - Preliminary NO GROWTH AFTER 2 DAYS 04/10/21 14:00 Aerobic Blood Culture - Preliminary Blood - Venous NO GROWTH AFTER 2 DAYS Anaerobic Blood Culture - Preliminary NO GROWTH AFTER 2 DAYS 04/09/21 10:05 Aerobic Blood Culture - Preliminary Blood - Venous - Lab Draw NO GROWTH AFTER 3 DAYS Anaerobic Blood Culture - Preliminary NO GROWTH AFTER 3 DAYS 04/09/21 09:47 Aerobic Blood Culture - Final Blood - Venous Gram Positive Rods Proteus Mirabilis Anaerobic Blood Culture - Final Gram Positive Cocci Med Orders - Current: Current Medications Acetaminophen (Acetaminophen 650 Mg Supp) 650 mg RECTAL Q4H PRN PRN Reason: Pain (mild 1-3) Last Admin: 04/10/21 22:14 Dose: 650 mg Documented by: Ceftriaxone Sodium (Ceftriaxone 2 Gm Vial) 2 gm IVPUSH Q24H [facility] Last Admin: 04/12/21 12:56 Dose: 2 gm Documented by: Lactated Ringer's (Ringers, Lactated) 1,000 mls @ 75 mls/hr IV ASDIRECTED [facility] Last Admin: 04/12/21 06:44 Dose: 75 mls/hr Documented by: Ondansetron HCl (Ondansetron 4 Mg/2 Ml Sdv) 4 mg IVPUSH Q4H PRN PRN Reason: Nausea/Vomiting Polyethylene Glycol (Polyethylene Glycol 3350 Powder 17 Gm Packet) 17 gm PO DAILY PRN PRN Reason: Constipation Last Admin: 04/12/21 10:32 Dose: 17 gm Documented by: Potassium Bicarbonate (Potassium Bicarbonate/Cit Ac 20 Meq Effervescent Tab) 20 meq PO ONETIME ONE Stop: 04/12/21 20:01 Sodium Chloride (Sodium Chloride 0.9% 10 Ml Syringe) 10 ml FLUSH ASDIRECTED PRN PRN Reason: Keep Vein Open Last Admin: 04/10/21 13:32 Dose: 10 ml Documented by: Discontinued Medications Ceftriaxone Sodium (Ceftriaxone 2 Gm Vial) 2 gm IV STAT ONE Stop: 04/09/21 09:38 Last Admin: 04/09/21 10:00 Dose: 2 gm Documented by: Lactated Ringer's (Ringers, Lactated) 1,000 mls @ 999 mls/hr IV BOLUS ONE; Protocol Stop: 04/09/21 10:37 Last Admin: 04/09/21 09:50 Dose: 999 mls/hr Documented by: Vancomycin HCl 1 gm/ Sodium (Chloride) 250 mls @ 165 mls/hr IV ONETIME ONE Stop: 04/09/21 11:45 Last Admin: 04/09/21 10:18 Dose: 165 mls/hr Documented by: Potassium Chloride 10 meq/ (Premix) 50 mls @ 50 mls/hr IV Q1H [facility] Stop: 04/09/21 14:29 Last Admin: 04/09/21 15:56 Dose: Not Given Documented by: Magnesium Sulfate 2 gm/ Premix 50 mls @ 25 mls/hr IV ONETIME ONE Stop: 04/09/21 13:00 Last Admin: 04/09/21 12:41 Dose: 25 mls/hr Documented by: Lactated Ringer's (Ringers, Lactated) 1,000 mls @ 999 mls/hr IV ASDIRECTED [facility] Last Admin: 04/09/21 11:00 Dose: 999 mls/hr Documented by: Potassium Chloride 10 meq/ (Premix) 50 mls @ 50 mls/hr IV Q1H [facility] Stop: 04/09/21 18:59 Last Admin: 04/09/21 18:33 Dose: 50 mls/hr Documented by: Vancomycin HCl 750 mg/ Sodium (Chloride) 250 mls @ 250 mls/hr IV Q12H [facility] Last Admin: 04/10/21 21:34 Dose: 250 mls/hr Documented by: Sodium Chloride (Normal Saline) 1,000 mls @ 500 mls/hr IV .BOLUS ONE Stop: 04/11/21 13:05 Last Admin: 04/11/21 11:22 Dose: 500 mls/hr Documented by: Potassium Bicarbonate (Potassium Bicarbonate/Cit Ac 20 Meq Effervescent Tab) 20 meq PO ONETIME ONE Stop: 04/11/21 12:54 Last Admin: 04/11/21 14:12 Dose: 20 meq Documented by: Potassium Bicarbonate (Potassium Bicarbonate/Cit Ac 20 Meq Effervescent Tab) 20 meq PO ONETIME ONE Stop: 04/12/21 10:01 Last Admin: 04/12/21 10:32 Dose: 20 meq Documented by: Potassium Bicarbonate (Potassium Bicarbonate/Cit Ac 20 Meq Effervescent Tab) 20 meq PO ONETIME ONE Stop: 04/12/21 16:07 Last Admin: 04/12/21 17:36 Dose: 20 meq Documented by: Vancomycin HCl (Pharmacy To Dose - Vancomycin) 1 dose .XX ASDIRECTED GAVI - Exam Urinary Catheter Total Time: 2Days 22Hours General: Alert HEENT: Pupils Equal, Pupils Reactive, EOMI, Mucous Membr. Moist/[place] Neck: Supple Lungs: Clear to Auscultation, Normal Respiratory Effort Cardiovascular: Regular Rate, Regular Rhythm GI/Abdominal Exam: Soft, Non-Tender, No Distention (Male) Exam: Deferred Back Exam: No: Muscle Spasm, Paraspinal Tenderness, Vertebral Tenderness Extremities: Non-Tender, Normal Capillary Refill Skin: Warm, Dry Neurological: No New Focal Deficit Psy/Mental Status: Alert, Normal Affect, Normal Mood - Patient Data Lab Results Last 24 hrs: Laboratory Results - last 24 hr 04/12/21 04/12/21 04/12/21 Range/Units 04:10 08:30 09:45 WBC 6.1 (4.0-10.2) K/uL RBC 4.58 (4.33-5.41) M/uL Hgb 12.9 L (13.1-16.8) g/dL Hct 38.6 L (39.0-49.0) % MCV 84.3 (84.0-98.0) fL MCH 28.2 (28.2-33.3) pg MCHC 33.4 (31.7-36.0) g/dL RDW 16.1 H (11.2-14.1) % Plt Count 224 (150-350) K/uL Neut % (Auto) 68.8 (45.0-80.0) % Lymph % (Auto) 22.1 (10.0-50.0) % [place] % (Auto) 7.3 (2.0-14.0) % Eos % (Auto) 1.5 (0.0-5.0) % Baso % (Auto) 0.3 (0.0-2.0) % Neut # (Auto) 4.16 (1.40-7.00) K/uL Lymph # (Auto) 1.34 (0.50-3.50) K/uL [place] # (Auto) 0.44 (0.00-1.00) K/uL Eos # (Auto) 0.09 (0.00-0.50) K/uL Baso # (Auto) 0.02 (0.00-0.20) K/uL Sodium 142 (136-145) mmol/L Potassium 3.3 L (3.5-5.1) mmol/L Chloride 109 H (98-107) mmol/L Carbon Dioxide 28.9 (21.0-32.0) mmol/L Anion Gap 7.4 (7-15) meq/L BUN 5 L (7-18) mg/dL Creatinine 0.70 (0.51-1.17) mg/dL Est Cr Clr Drug Dosing 91.03 mL/min Estimated GFR (MDRD) > 60 mL/min Glucose 91 (70-99) mg/dL Calcium 8.2 L (8.5-10.1) mg/dL Specimen Type Urinvoid Urine Color Light yellow Urine Appearance Clear Urine pH 7.0 (5.0-9.0) Ur Specific [place] 1.020 (1.005-1.030) Urine Protein Negative (NEGATIVE) mg/dL Urine Glucose (UA) Negative (NEGATIVE) mg/dL Urine Ketones 15 H (NEGATIVE) mg/dL Urine Occult Blood Trace-intact H (NEGATIVE) Urine Nitrite Negative (NEGATIVE) Urine Bilirubin Negative (NEGATIVE) Urine Urobilinogen 0.2 (0.2-1.0) E.U./dL Ur Leukocyte Esterase Small H (NEGATIVE) Urine RBC 0-5 /HPF Urine WBC 20-30 H /HPF Ur Epithelial Cells Rare /LPF Urine Bacteria Few (NONE TO FEW) /HPF Result Diagrams: 04/12/21 09:45 04/12/21 08:30 Miles Results Last 24 hrs: Microbiology 04/11/21 08:51 Aerobic Blood Culture - Preliminary Blood - Venous - Lab Draw NO GROWTH AFTER 1 DAY Anaerobic Blood Culture - Preliminary NO GROWTH AFTER 1 DAY 04/11/21 08:40 Aerobic Blood Culture - Preliminary Blood - Venous NO GROWTH AFTER 1 DAY Anaerobic Blood Culture - Preliminary NO GROWTH AFTER 1 DAY 04/10/21 14:05 Aerobic Blood Culture - Preliminary Blood - Venous - Lab Draw NO GROWTH AFTER 2 DAYS Anaerobic Blood Culture - Preliminary NO GROWTH AFTER 2 DAYS 04/10/21 14:00 Aerobic Blood Culture - Preliminary Blood - Venous NO GROWTH AFTER 2 DAYS Anaerobic Blood Culture - Preliminary NO GROWTH AFTER 2 DAYS 04/09/21 10:05 Aerobic Blood Culture - Preliminary Blood - Venous - Lab Draw NO GROWTH AFTER 3 DAYS Anaerobic Blood Culture - Preliminary NO GROWTH AFTER 3 DAYS 04/09/21 09:47 Aerobic Blood Culture - Final Blood - Venous Gram Positive Rods Proteus Mirabilis Anaerobic Blood Culture - Final Gram Positive Cocci Sepsis Event Note - Evaluation Sepsis Screening Result: No Definite Risk - Focused Exam Vital Signs: Vital Signs Temp Pulse Resp BP Pulse Ox 04/12/21 16:00 36.6 C 81 14 105/59 L 97 04/12/21 08:00 36.2 C 76 18 97/63 97 - Problem List & Annotations (1) Sepsis with acute organ dysfunction SNOMED Code(s): 67063041 Code(s): A41.9 - SEPSIS, UNSPECIFIED ORGANISM; R65.20 - SEVERE SEPSIS WITHOUT SEPTIC SHOCK Status: Acute Priority: High Current Visit: Yes Onset Date: ~04/09/21 Qualifiers: Sepsis type: sepsis due to unspecified organism Severe sepsis acute organ dysfunction type: acute renal failure Acute renal failure type: unspecified Severe sepsis shock status: unspecified Qualified Code(s): A41.9 - Sepsis, unspecified organism; R65.20 - Severe sepsis without septic shock; N17.9 - Acute kidney failure, unspecified Annotation/Comment:: Suspect secondary to UTI. Patient has chronic indwelling Alegre. Proteus Mirabilis identified. Switched to Rocephin yesterday. Patient noted to have frequent episodes of hypotension and this was felt to be secondary to acute sepsis. Low BP measurements continued despite patient's improving overall status/decreased white count. Call placed to [facility] and staff queried as to patient's usual BPs at that facility. We were informed that this range is normal for him and that he usually runs quite low. (2) Chronic hypotension SNOMED Code(s): 25069552 Code(s): I95.89 - OTHER HYPOTENSION Status: Chronic Priority: Medium Current Visit: Yes Annotation/Comment:: See above. Patient has chronic asymptomatic hypotension per [facility]. (3) Hypokalemia SNOMED Code(s): 23590748 Code(s): E87.6 - HYPOKALEMIA Status: Acute Priority: Low Current Visit: Yes Annotation/Comment:: Potassium replacement initiated. Noted to be low again today. Continue replacement/recheck level in AM (4) Hypomagnesemia SNOMED Code(s): 310911060 Code(s): E83.42 - HYPOMAGNESEMIA Status: Resolved Priority: Medium Current Visit: Yes Annotation/Comment:: Patient's level resonded well to IV Magnesium replacement. (5) Lactic acid blood increased SNOMED Code(s): 7835136 Code(s): R79.89 - OTHER SPECIFIED ABNORMAL FINDINGS OF BLOOD CHEMISTRY Status: Suspected Priority: High Current Visit: No Onset Date: ~04/09/21 Annotation/Comment:: Normalized after initiation of sepsis treatment. (6) Comfort measures only status SNOMED Code(s): 37633225788907 Code(s): Z51.5 - ENCOUNTER FOR PALLIATIVE CARE Status: Chronic Priority: High Current Visit: Yes Annotation/Comment:: Confirmed by POA. Conservative management. (7) Down syndrome SNOMED Code(s): 86345228 Code(s): Q90.9 - DOWN SYNDROME, UNSPECIFIED Status: Chronic Priority: Low Current Visit: No Annotation/Comment:: Associated dementia/cognitive deficits. Dementia and general weakness/less activity has been progressive over recent years per family. Symptoms stable during this hospitalization. (8) Mixed anxiety depressive disorder SNOMED Code(s): 452808661 Code(s): F41.8 - OTHER SPECIFIED ANXIETY DISORDERS Status: Chronic Priority: Medium Current Visit: No Annotation/Comment:: Stable during this hospitalization. Continue home medication (9) Osteoarthritis SNOMED Code(s): 327064151 Code(s): M19.90 - UNSPECIFIED OSTEOARTHRITIS, UNSPECIFIED SITE Status: Chronic Priority: Low Current Visit: No Qualifiers: Osteoarthritis location: multiple joints Osteoarthritis type: primary Qualified Code(s): M15.9 - Polyosteoarthritis, unspecified Annotation/Comment:: Stable during this hospitalization. (10) Peripheral vascular disease SNOMED Code(s): 449867968 Code(s): I73.9 - PERIPHERAL VASCULAR DISEASE, UNSPECIFIED Status: Chronic Priority: Low Current Visit: No Annotation/Comment:: Suspect given dermal changes observed in both lower extremities. Has no formal diagnosis listed. Given patient's comfort care status no further evaluation will be performed at this time. (11) Spastic hemiplegia affecting left nondominant side SNOMED Code(s): 513616003279627 Code(s): G81.14 - SPASTIC HEMIPLEGIA AFFECTING LEFT NONDOMINANT SIDE Status: Chronic Priority: Medium Current Visit: No Qualifiers: Hemiplegia etiology: unspecified etiology Qualified Code(s): G81.14 - Spastic hemiplegia affecting left nondominant side Annotation/Comment:: Stable during this hospitalization. (12) Chronic indwelling Alegre catheter SNOMED Code(s): 901966898 Code(s): Z97.8 - PRESENCE OF OTHER SPECIFIED DEVICES Status: Chronic Priority: Medium Current Visit: Yes Annotation/Comment:: Hx neurogenic bladder - Problem List Review Problem List Initiated/Reviewed/Updated: Yes - My Orders Last 24 Hours: My Active Orders 04/11/21 Dinner Regular Diet [DIET] 04/12/21 04:10 CULTURE URINE [RM] Routine 04/12/21 10:18 Renew/Continue Urinary Catheter [OM.PC] Routine 04/12/21 20:00 Potassium Bicarbonate/Cit Ac [Effer-K] 20 meq PO ONETIME ONE - Assessment Assessment:: 04/10/21 Severe sepsis with acute organ dysfunction and hypotension likely UTI, complicated lactic acidosis 2/2 above AGMA likely secondary to lactic acidosis gram positive bacteremia - febrile, WBX 28.4, lactic acid 4.5, creatinine 1.26 - sepsis protocol started in ED: large volume IVF (2L LR bolus), lactic acid with trend every 4 hrs until WNL, panculture, IV vanc and zosyn after cultures drawn - blood pressure continued to be hypotensive at 80s/40s despite 2L bolus. discussed with guardian and he opted for conservative management given overall poor quality of life. will avoid presser support and additional large volume bolus and will continue at 126mL/hr while watching LA trend - blood culture positive for gram positive cocci Plan: - continue broad spec IV abx (vanc and zosyn) while we wait for culture results - continue LR at 126/hr as outlined above - telemetry - do not escalate care without discussion with JO delvalle. hypokalemia: - K 3.2 on admit, replaced with 40mEq IV x1 - recheck early am Hypomagnesemia: - Mg 1.6 on admit, replaced with 2g IV x1 - recheck early am Neurogenic bladder with chronic indwelling alegre catheter - obstruction of urine outflow with clots - replace alegre catheter 04/09/21 CHRONIC CONDITIONS: pt currently on palliative care. continue home meds as ordered - acquired hypothyroidism - PVD - OA of multiple sites - Left hemiplegia - depression with anxiety - unspecified dementia without behavioral disturbance - downs syndrome - COPD per chart with no official PFTs on file Code status: DNR/DNI DVT prophylaxis: subQ lovenox MDM/interval history: remained relatively stable overnight. SBP down to 78 at one point. per discussion with Emil (JO) we will not escalate cares beyond current management and will plan to discuss any changes we would like to make prior so that decision can be made to either continue or change goal of care to comfort only. Sher is currently following with palliative care as an outpatient but has not been thought to be end of life or ready for hospice yet. blood cultures positive today. continue current broad spec abx. repeat cultures today 04/12/21 as above. Repeat cultures pending. Switched to Rocephin. WBC improved. Afebrile. - Plan Plan:: as above. If patient continues to do well and second set of blood cultures negative at 72 hours/tomorrow, anticipate discharge back to [facility] after patient receives his noon dose of IV Rocephin and if ride is available back to [facility] (Wednesday). He tolerates a nectar thick diet and would likely do best if sent home on oral antibiotic in liquid form that can be picked up from pharmacy on Wednesday.
[2021-04-13] MEDS ORDERED: Potassium Bicarbonate/Cit Ac 20 MEQ Effervescent Tab PO ONE (10:58)
--- NOTE | 2021-04-13 11:06 | PCM.DCSUM1 ---
Discharge Summary - Hospital Course Free Text/Narrative:: Patient was admitted with UTI sepsis, started on vancomycin and switched to Rocephin. Blood cultures were initially positive for proteus mirabilis, sensitive to all but macrobid. Patient has an indwelling alegre, this was changed. White count normal, blood cultures x 2 after initial are negative. Afebrile, normal wbc. [facility] will take back. 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 UTI sepsis found with positive blood cultures. Diagnosis: Stroke: No Modified [place] Scale: Mod.Sev.Disability ;Unable to Walk/Attend Bodily Needs W/O Assistance Modified [place] Scale Score: 4 - Discharge Data Discharge Date: 04/13/21 Discharge Disposition: DC/Tfer to SNF 03 Condition: Good - Referral to Home Health Primary Care Physician: Summer Correia MD - Discharge Diagnosis/Problem(s) (1) Hypokalemia SNOMED Code(s): 33346697 ICD Code: E87.6 - HYPOKALEMIA Status: Acute Priority: Low Current Visit: Yes Problem Details: continued to be low, will replace today with 40 mg efferx and send home on this daily Potassium replacement initiated. Noted to be low again today. Continue replacement/recheck level in AM (2) Sepsis with acute organ dysfunction SNOMED Code(s): 12716530 ICD Code: A41.9 - SEPSIS, UNSPECIFIED ORGANISM; R65.20 - SEVERE SEPSIS WITHOUT SEPTIC SHOCK Status: Acute Priority: High Current Visit: Yes Onset Date: ~04/09/21 Problem Details: REsolved, normal WBC, no fever. received 5 days of IV antibiotics. Expect some bacterial growth due to indwelling chronically. Will await culture results for further antibiotics, received 2 grams rocephin IV 04/13/2021 Suspect secondary to UTI. Patient has chronic indwelling Alegre. Proteus Mirabilis identified. Switched to Rocephin yesterday. Patient noted to have frequent episodes of hypotension and this was felt to be secondary to acute sepsis. Low BP measurements continued despite patient's improving overall status/decreased white count. Call placed to [facility] and staff queried as to patient's usual BPs at that facility. We were informed that this range is normal for him and that he usually runs quite low. Qualifiers: Sepsis type: sepsis due to unspecified organism Severe sepsis acute organ dysfunction type: acute renal failure Acute renal failure type: unspecified Severe sepsis shock status: unspecified Qualified Code(s): A41.9 - Sepsis, unspecified organism; R65.20 - Severe sepsis without septic shock; N17.9 - Acute kidney failure, unspecified (3) Chronic indwelling Alegre catheter SNOMED Code(s): 984119600 ICD Code: Z97.8 - PRESENCE OF OTHER SPECIFIED DEVICES Status: Chronic Priority: Medium Current Visit: Yes Problem Details: fley catheter changed in patient. Continue routinue changes Hx neurogenic bladder (4) Hypomagnesemia SNOMED Code(s): 008412508 ICD Code: E83.42 - HYPOMAGNESEMIA Status: Resolved Priority: Medium Current Visit: Yes Problem Details: Patient's level resonded well to IV Magnesium replacement. - Patient Summary/Data Recommended Follow-up Testing/Procedures: urine culture pending. - Patient Instructions Diet: Usual Diet as Tolerated Activity: As Tolerated - Discharge Plan *PRESCRIPTION DRUG MONITORING PROGRAM REVIEWED*: Not Applicable *COPY OF PRESCRIPTION DRUG MONITORING REPORT IN PATIENT GEOVANNA: Not Applicable Prescriptions/Med Rec: Potassium Bicarbonate/Cit Ac [Effer-K] 40 meq PO DAILY #60 tablet.eff Home Medications: Home Meds Acetaminophen [Tylenol] 650 mg RECTAL Q4H PRN supp 11/23/20 [Rx] Acetaminophen [Tylenol Bulk Bottle] 650 mg PO Q4H PRN 04/09/21 [History] LORazepam [LORazepam Intensol] 0.5 ml PO Q3H PRN 04/09/21 [History] Morphine [Morphine 20 MG/ML Oral Soln] 0.5 ml PO Q4H PRN 04/09/21 [History] Potassium Bicarbonate/Cit Ac [Effer-K] 40 meq PO DAILY #60 tablet.eff 04/13/21 [Rx] Oxygen Therapy Mode: Room Air Forms: ED Department Discharge Referrals: Summer Correia MD [Primary Care Provider] - - Discharge Summary/Plan Comment DC Time >30 min.: No Total # of Minutes for Discharge Time: 20 Discharge Summary/Plan Comment: [facility] to [facility]. Recheck electrolytes in 3-4 days, change alegre catheter on schedule, note was changed in hospital. Start 40 mg of efferx daily for low potassium. Was treated with 5 days IV antibiotics. Negative repeat blood cultures - General Info Date of Service: 04/13/21 Admission Dx/Problem (Free Text: Admitted for treatment of severe sepsis, suspected secondary to UTI. Low Mag and K. Subjective Update: doing better, negative cultures, afebrile, normal white blood count Functional Status: Denies: New Symptoms - Review of Systems General: Reports: No Symptoms HEENT: Reports: No Symptoms Pulmonary: Reports: No Symptoms Cardiovascular: Reports: No Symptoms Gastrointestinal: Reports: No Symptoms Genitourinary: Reports: No Symptoms Musculoskeletal: Reports: No Symptoms Skin: Reports: No Symptoms Neurological: Reports: No Symptoms Psychiatric: Reports: No Symptoms - Patient Data Vitals - Most Recent: Last Vital Signs Temp 36.2 C 04/13/21 07:20 Pulse 73 04/13/21 07:20 Resp 20 04/13/21 07:20 BP 129/83 04/13/21 07:20 Pulse Ox 95 04/13/21 07:20 Weight - Most Recent: 53.977 kg I&O - Last 24 hours: Intake & Output 04/12/21 04/13/21 04/13/21 22:59 06:59 14:59 Intake Total 913 875 Output Total 1550 2062 465 Balance -479 -708 -903 REESE Results - Last 24 hrs: Microbiology 04/09/21 10:05 Aerobic Blood Culture - Preliminary Blood - Venous - Lab Draw NO GROWTH AFTER 4 DAYS Anaerobic Blood Culture - Preliminary NO GROWTH AFTER 4 DAYS 04/11/21 08:51 Aerobic Blood Culture - Preliminary Blood - Venous - Lab Draw NO GROWTH AFTER 1 DAY Anaerobic Blood Culture - Preliminary NO GROWTH AFTER 1 DAY 04/11/21 08:40 Aerobic Blood Culture - Preliminary Blood - Venous NO GROWTH AFTER 1 DAY Anaerobic Blood Culture - Preliminary NO GROWTH AFTER 1 DAY 04/10/21 14:05 Aerobic Blood Culture - Preliminary Blood - Venous - Lab Draw NO GROWTH AFTER 2 DAYS Anaerobic Blood Culture - Preliminary NO GROWTH AFTER 2 DAYS 04/10/21 14:00 Aerobic Blood Culture - Preliminary Blood - Venous NO GROWTH AFTER 2 DAYS Anaerobic Blood Culture - Preliminary NO GROWTH AFTER 2 DAYS 04/09/21 09:47 Aerobic Blood Culture - Final Blood - Venous Gram Positive Rods Proteus Mirabilis Anaerobic Blood Culture - Final Gram Positive Cocci Med Orders - Current: Current Medications Acetaminophen (Acetaminophen 650 Mg Supp) 650 mg RECTAL Q4H PRN PRN Reason: Pain (mild 1-3) Last Admin: 04/10/21 22:14 Dose: 650 mg Documented by: Ceftriaxone Sodium (Ceftriaxone 2 Gm Vial) 2 gm IVPUSH Q24H [facility] Last Admin: 04/12/21 12:56 Dose: 2 gm Documented by: Lactated Ringer's (Ringers, Lactated) 1,000 mls @ 75 mls/hr IV ASDIRECTED [facility]AVI Last Admin: 04/12/21 21:51 Dose: 75 mls/hr Documented by: Ondansetron HCl (Ondansetron 4 Mg/2 Ml Sdv) 4 mg IVPUSH Q4H PRN PRN Reason: Nausea/Vomiting Polyethylene Glycol (Polyethylene Glycol 3350 Powder 17 Gm Packet) 17 gm PO DAILY PRN PRN Reason: Constipation Last Admin: 04/12/21 10:32 Dose: 17 gm Documented by: Potassium Bicarbonate (Potassium Bicarbonate/Cit Ac 20 Meq Effervescent Tab) 40 meq PO ONETIME ONE Stop: 04/13/21 10:59 Sodium Chloride (Sodium Chloride 0.9% 10 Ml Syringe) 10 ml FLUSH ASDIRECTED PRN PRN Reason: Keep Vein Open Last Admin: 04/10/21 13:32 Dose: 10 ml Documented by: Discontinued Medications Ceftriaxone Sodium (Ceftriaxone 2 Gm Vial) 2 gm IV STAT ONE Stop: 04/09/21 09:38 Last Admin: 04/09/21 10:00 Dose: 2 gm Documented by: Lactated Ringer's (Ringers, Lactated) 1,000 mls @ 999 mls/hr IV BOLUS ONE; Protocol Stop: 04/09/21 10:37 Last Admin: 04/09/21 09:50 Dose: 999 mls/hr Documented by: Vancomycin HCl 1 gm/ Sodium (Chloride) 250 mls @ 165 mls/hr IV ONETIME ONE Stop: 04/09/21 11:45 Last Admin: 04/09/21 10:18 Dose: 165 mls/hr Documented by: Potassium Chloride 10 meq/ (Premix) 50 mls @ 50 mls/hr IV Q1H [facility] Stop: 04/09/21 14:29 Last Admin: 04/09/21 15:56 Dose: Not Given Documented by: Magnesium Sulfate 2 gm/ Premix 50 mls @ 25 mls/hr IV ONETIME ONE Stop: 04/09/21 13:00 Last Admin: 04/09/21 12:41 Dose: 25 mls/hr Documented by: Lactated Ringer's (Ringers, Lactated) 1,000 mls @ 999 mls/hr IV ASDIRECTED [facility] Last Admin: 04/09/21 11:00 Dose: 999 mls/hr Documented by: Potassium Chloride 10 meq/ (Premix) 50 mls @ 50 mls/hr IV Q1H [facility] Stop: 04/09/21 18:59 Last Admin: 04/09/21 18:33 Dose: 50 mls/hr Documented by: Vancomycin HCl 750 mg/ Sodium (Chloride) 250 mls @ 250 mls/hr IV Q12H [facility] Last Admin: 04/10/21 21:34 Dose: 250 mls/hr Documented by: Sodium Chloride (Normal Saline) 1,000 mls @ 500 mls/hr IV .BOLUS ONE Stop: 04/11/21 13:05 Last Admin: 04/11/21 11:22 Dose: 500 mls/hr Documented by: Potassium Bicarbonate (Potassium Bicarbonate/Cit Ac 20 Meq Effervescent Tab) 20 meq PO ONETIME ONE Stop: 04/11/21 12:54 Last Admin: 04/11/21 14:12 Dose: 20 meq Documented by: Potassium Bicarbonate (Potassium Bicarbonate/Cit Ac 20 Meq Effervescent Tab) 20 meq PO ONETIME ONE Stop: 04/12/21 10:01 Last Admin: 04/12/21 10:32 Dose: 20 meq Documented by: Potassium Bicarbonate (Potassium Bicarbonate/Cit Ac 20 Meq Effervescent Tab) 20 meq PO ONETIME ONE Stop: 04/12/21 16:07 Last Admin: 04/12/21 17:36 Dose: 20 meq Documented by: Potassium Bicarbonate (Potassium Bicarbonate/Cit Ac 20 Meq Effervescent Tab) 20 meq PO ONETIME ONE Stop: 04/12/21 20:01 Last Admin: 04/12/21 21:50 Dose: 20 meq Documented by: Vancomycin HCl (Pharmacy To Dose - Vancomycin) 1 dose .XX ASDIRECTED [facility] - Exam General: Reports: Other (minimal verbal interaction ( baseline)) HEENT: Reports: Pupils Equal Neck: Reports: Supple Lungs: Reports: Clear to Auscultation, Normal Respiratory Effort Cardiovascular: Reports: Regular Rate, Regular Rhythm GI/Abdominal Exam: Normal Bowel Sounds (Male) Exam: Other (clear yellow urine in the alegre bag) Extremities: Normal Inspection, No Pedal Edema Neurological: Reports: No New Focal Deficit
[2021-04-13] MEDS: cefTRIAXone 2 GM Vial IVPUSH SCH (11:30)
== END 2021-04-13 13:00 | DRG 698 ==
LOC: LL.ED 09:30 → LL.MS 11:29
PROVIDERS: ADMIT Hospitalist; ATTEND Hospitalist
DX: A41.9 Sepsis, unspecified organism (principal); R65.10 Systemic inflammatory response syndrome (SIRS) of non-infectious origin without acute organ dysfunction; Z93.6 Other artificial openings of urinary tract status; T83.511A Infection and inflammatory reaction due to indwelling urethral catheter, initial encounter; A41.51 Sepsis due to Escherichia coli [E. coli]; F03.90 Unspecified dementia, unspecified severity, without behavioral disturbance, psychotic disturbance, mood disturbance, and anxiety; R65.20 Severe sepsis without septic shock; G81.14 Spastic hemiplegia affecting left nondominant side; N17.9 Acute kidney failure, unspecified; N39.0 Urinary tract infection, site not specified; Z51.5 Encounter for palliative care; E87.6 Hypokalemia; I95.9 Hypotension, unspecified; E83.42 Hypomagnesemia; N31.9 Neuromuscular dysfunction of bladder, unspecified; E03.9 Hypothyroidism, unspecified; I95.89 Other hypotension; F41.8 Other specified anxiety disorders; M19.90 Unspecified osteoarthritis, unspecified site; I73.9 Peripheral vascular disease, unspecified; Z96.0 Presence of urogenital implants; Z79.899 Other long term (current) drug therapy; Q90.9 Down syndrome, unspecified; Z90.49 Acquired absence of other specified parts of digestive tract
CPT/HCPCS: 36415; 51702; 71045; 80048; 80053; 81001; 81003; 83605; 83735; 83880; 85025; 85027; 87040; 87077; 87086; 87186; 93005; 96365; 96366; 96367; 96375; 99223; 99232; 99233; 99238; 99285-25; A9270-GY; J0696; J3370; J3475; J3480; J7030; J7050; J7120